=== PATIENT | female | born 1960 | race Caucasian/White ===

== ENCOUNTER → 2019-04-14 | Outpatient (CLI) | payer OTHER, SELFPAY ==
--- NOTE | 2019-04-14 14:32 | BI_ITS ---
MAMMOGRAPHY - BILATERAL SCREENING REASON FOR EXAM: Female, 58 years old. Routine annual screening examination. PERTINENT HISTORY: Non-contributory. TECHNIQUE: Digital bilateral breast gill (3D mammographic acquisition) in the CC and MLO projections. 2-D mediolateral oblique (MLO) and craniocaudad (CC) views of both breasts were obtained. CAD: Full Field Digital Mammography with Computer Added Detection was performed. COMPARISON: Comparison is made with prior study dated May 07, 2017 and September 08, 2015. FINDINGS: Breast Composition: The breasts are almost entirely fatty. There are no dominant masses or suspicious calcifications. Stable benign-appearing bilateral axillary lymph nodes. No other significant abnormalities are identified. There has been no significant change since the prior study. BI/SCREEN MAMM (CAD) W/GILL BILAT IMPRESSION: Stable bilateral screening mammogram. Yearly follow-up mammogram recommended. (A) ASSESSMENT CATEGORY: BIRADS Category 2: Benign. A letter regarding these results will be sent to the patient by the facility within 30 days. Approximately 10% of breast cancers are not detected by mammography. A normal mammogram should not delay biopsy of a clinically suspicious abnormality. [id number] Electronically Signed: Ramesh Shulka, at 15:34 EDT , Service support ,
== END | disposition home or self-care (01) ==
LOC: OPBI 14:30
PROVIDERS: Family Provider Internal Medicine; PCP Internal Medicine; Referring Provider Internal Medicine; Visit Provider Internal Medicine
DX: Z12.31 Encounter for screening mammogram for malignant neoplasm of breast (principal)
CPT/HCPCS: 77063; 77067

== ENCOUNTER 2019-09-06 13:40 | Emergency (ER) | payer OTHER, SELFPAY ==
[2019-09-06 13:42] VITALS: BP 158/96; PULSE 82; RESP 14; TEMP 36.6; O2SAT 98; BMI 39.1
[2019-09-06 13:52] VITALS: PULSE 82; RESP 14; O2SAT 98
--- NOTE | 2019-09-06 13:56 | EKG12_ITS ---
Test Reason : PALPS Blood Pressure : / mmHG Vent. Rate : 079 BPM Atrial Rate : 079 BPM P-R Int : 164 ms QRS Dur : 098 ms QT Int : 420 ms P-R-T Axes : 015 021 032 degrees QTc Int : 481 ms Normal sinus rhythm Abnormal ECG Confirmed by ROHAN CHÁVEZ, GEORGINA ([id number]), electronic news gathering editor ROSENDO EDMONDSON ([id number]) on 09/07/2019 1:55:54 PM Referred By: REBEKA/SESAR Confirmed By:GEORGINA MADRIGAL MD
--- NOTE | 2019-09-06 13:59 | ED.VISSUMM ---
- ER Visit Summary Date of Service: 09/06/19 Chief Complaint: Palpitations History of Present Illness: The patient is a 59 F who has not been feeling well intermittently for the past week. She states that at times she feels palpitations but then at other times her heart rate was low. Last night she documented in the 40s with a finger pulse ox. She feels very fatigued. She does have some pain in the left arm. She denies any recent illnesses. She has no pain in her chest. She denies shortness of breath. She takes atenolol and lisinopril. She states that her dose of atenolol is 25 mg. She has been on the same dose for many years without any recent changes. Physical Examination: Vital signs reviewed. HEENT exam unremarkable. Heart is regular rate and rhythm without murmurs. Lungs are clear to auscultation. Abdomen is soft and nontender. Extremities reveal no edema. Peripheral pulses are equal. Skin exam normal. Neurologic exam normal. Test Results: Normal sinus rhythm with a rate of 89. No ST changes. Labs normal. TSH normal Emergency Department Course and Treatment: The patient's telemetry consisted of a sinus rhythm that maintained in the 70s and 80s. There is no bradycardia or tachycardia. I am unclear as to why her heart rate registered in the 40s last night. 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 I recommended following up with her PCP for a Holter monitor. Treatment Plan: [] Disposition: Discharge Impression: Palpitations This note was generated with [employer] dictation software. It may contain incorrect words, spelling, and punctuation that were not noted in review of the chart prior to signing ED Disposition - Plan for ED Patient: Referrals: Erin Craven DO [Primary Care Provider] -
[2019-09-06 14:11] LABS: Absolute Lymphocyte Count 2.05 X10^3/uL (0.83-4.51); Absolute Neutrophil Count 4.9 X10^3/uL (2.0-7.7); Basophil# 0.08 X10^3/uL; Eosinophil# 0.31 X10^3/uL; Eosinophils% 3.9 % (0-5); Hematocrit 43.7 % (37-47); Hemoglobin 14.3 g/dL (12.0-15.0); Lymphocyte # 2.05 X10^3/ul (4.0); Lymphocyte % 25.9 % (19-41); Mean Corp Hgb Conc 32.7 g/dL (32-36); Mean Corpuscular Volume 91.8 fL (81-99); Monocyte# 0.55 X10^3/uL; Monocyte% 6.9 % (0-10); NRBC Flagged by Analyzer 0 % (0-5); Neutrophil % 61.8 % (47-70); Platelet Count 170 K/mm3 (150-450); RBC Distribution Width CV 13.2 % (11.6-14.6); RBC Distribution Width SD 44.6 fl (35.1-43.9); Red Blood Count 4.76 M/mm3 (4.2-5.4); White Blood Count 7.9 K/mm3 (4.4-11.0)
[2019-09-06 14:33] LABS: Anion Gap 9 (5-15); BUN 15 mg/dL (7-18); BUN/Creat Ratio 20.7 RATIO (10-20); Calcium,Total 9.2 mg/dL (8.5-10.1); Chloride 105 mmol/L (98-107); Creatinine, Serum 0.73 mg/dL (0.55-1.02); EST Glomerular Filtration Rate 87 mL/min (>60); Est Glom Filt Rate - Afr Amer 105 mL/min (>60); Estimated Creatinine Clearance 73.74 ml/min; Glucose 98 mg/dL (74-106); Potassium 3.8 mmol/L (3.5-5.1); Sodium Level 139 mmol/L (136-145); Thyroid Stim Hormone (TSH) 1.32 uIU/mL (0.358-3.74)
--- NOTE | 2019-09-06 14:52 | ED.DEP ---
ED Disposition - Plan for ED Patient: Disposition: Home or Assisted Living Instructions: Palpitations Referrals: Erin Craven DO [Primary Care Provider] -
[2019-09-06 15:01] VITALS: BP 108/67; PULSE 77; RESP 18; O2SAT 96
--- NOTE | 2019-09-06 15:02 | ED.RN ---
REVIEWED D/C INSTRUCTIONS, FOLLOW UP CARE, AND S/S THAT WOULD WARRANT A RETURN TO THE ED WITH PT. PT VERBALIZED AN UNDERSTANDING AND DENIES FURTHER QUESTIONS FOR THIS RN. PT SKIN P/W/D, RESP EVEN AND UNLABORED, PT A&O X 3, NO DISTRESS NOTED. PT AMBULATED OUT OF ED, GAIT STEADY.
== END 2019-09-06 15:05 | disposition home or self-care (01) ==
PROVIDERS: Emergency Provider Emergency Medicine; Family Provider Internal Medicine; PCP Internal Medicine
DX: R00.2 Palpitations (principal); I10 Essential (primary) hypertension; Z79.899 Other long term (current) drug therapy
CPT/HCPCS: 80048; 84443; 84484; 85025; 93005; 99284; A4216

== ENCOUNTER → 2019-09-14 10:02 | Outpatient (CLI) | payer OTHER, SELFPAY ==
[2019-09-06 13:42] VITALS: BMI 39.1
--- NOTE | 2019-09-14 10:09 | RAD_ITS ---
STUDY: X-RAY CHEST REASON FOR EXAM: Female, 59 years old. Cough. TECHNIQUE: PA and lateral views of the chest. COMPARISON: Comparison is made with prior examination dated April 17, 2017. FINDINGS: The lungs are clear and expanded. Scattered calcified granulomas. There is no demonstrated pleural abnormality. Normal size heart. Normal mediastinum and marleni. Normal visualized pulmonary arteries. There is atherosclerotic tortuosity of the aortic arch and descending thoracic aorta. There are degenerative changes of the visualized thoracic spine. Normal visualized ribs, clavicles, and shoulders. There is no demonstrated abnormality of the visualized soft tissue structures of the upper abdomen. RAD/Chest PA and Lateral IMPRESSION: No acute abnormality is seen. Electronically Signed: Ramesh Shukla, at 10:56 EST , Service support ,
== END ==
PROVIDERS: Family Provider Internal Medicine; PCP Internal Medicine; Referring Provider Nurse Practitioner; Visit Provider Nurse Practitioner
DX: J40 Bronchitis, not specified as acute or chronic (principal)
CPT/HCPCS: 71046

== ENCOUNTER → 2020-08-15 11:23 | Outpatient (CLI) | payer OTHER, SELFPAY ==
--- NOTE | 2020-08-15 11:30 | RAD_ITS ---
STUDY: X-RAY CHEST REASON FOR EXAM: Female, 60 years old. Cough x 3 days TECHNIQUE: PA and lateral views of the chest. COMPARISON: Comparison is made with prior study dated 09/14/2019. FINDINGS: The lungs are clear and expanded. There is no demonstrated pleural abnormality. Normal size heart. Normal mediastinum and marleni. Normal visualized pulmonary arteries. Normal visualized aortic arch and descending thoracic aorta. There are degenerative changes of the visualized thoracic spine. Normal visualized ribs, clavicles, and shoulders. There is no demonstrated abnormality of the visualized soft tissue structures of the upper abdomen. RAD/Chest PA and Lateral IMPRESSION: No acute abnormality is seen. Electronically Signed: Ramesh Shukla, at 12:06 EDT , Service support ,
== END ==
PROVIDERS: PCP Internal Medicine; Referring Provider Internal Medicine; Visit Provider Internal Medicine
DX: R06.02 Shortness of breath (principal)
CPT/HCPCS: 71046

== ENCOUNTER → 2021-01-23 09:56 | Outpatient (CLI) | payer OTHER, SELFPAY ==
[2021-01-23 10:12] LABS: Absolute Lymphocyte Count 2.03 X10^3/uL (0.83-4.51); Absolute Neutrophil Count 3.7 X10^3/uL (2.0-7.7); Basophil# 0.05 X10^3/uL; Basophil% 0.8 % (0-1); Eosinophil# 0.27 X10^3/uL; Eosinophils% 4.1 % (0-5); Hematocrit 42.1 % (37-47); Hemoglobin 13.9 g/dL (12.0-15.0); Lymphocyte # 2.03 X10^3/ul (4.0); Lymphocyte % 30.6 % (19-41); Mean Corpuscular Hgb 29.8 pg (27.0-32.0); Mean Corpuscular Volume 90.3 fL (81-99); Mean Platelet Vol. 12.9 fl (6.2-12.0); Monocyte# 0.51 X10^3/uL; Monocyte% 7.7 % (0-10); NRBC Flagged by Analyzer 0 % (0-5); Neutrophil # 3.73 X10^3/uL (2.7-7.7); Neutrophil % 56.2 % (47-70); Platelet Count 162 K/mm3 (150-450); RBC Distribution Width CV 13.8 % (11.6-14.6); RBC Distribution Width SD 45.1 fl (35.1-43.9); Red Blood Count 4.66 M/mm3 (4.2-5.4); White Blood Count 6.6 K/mm3 (4.4-11.0)
[2021-01-23 10:23] LABS: D-Dimer Quantitative (DVT/PE) 0.44 FEU/ug/m (0.27-0.49)
[2021-01-23 10:37] LABS: ALB/GLOB Ratio 1.2 RATIO (0.9-2.4); AST(SGOT) 55 U/L (15-37); Alanine Aminotransfer ALT/SGPT 122 U/L (13-56); Albumin, Serum 3.8 g/dL (3.2-5.0); Alkaline Phosphatase 113 U/L (45-117); Anion Gap 5 (5-15); BUN 18 mg/dL (7-18); Calcium,Total 8.9 mg/dL (8.5-10.1); Chloride 107 mmol/L (98-107); Creatinine, Serum 0.64 mg/dL (0.55-1.02); EST Glomerular Filtration Rate 100 mL/min (>60); Est Glom Filt Rate - Afr Amer 120 mL/min (>60); Globulin 3.3 g/dL (2.2-4.2); Glucose 113 mg/dL (74-106); Protein, Total 7.1 g/dL (6.4-8.2); Sodium Level 139 mmol/L (136-145); Thyroid Stim Hormone (TSH) 2.34 uIU/mL (0.358-3.74)
== END ==
PROVIDERS: PCP Internal Medicine; Referring Provider Nurse Practitioner; Visit Provider Nurse Practitioner
DX: R00.2 Palpitations (principal)
CPT/HCPCS: 80053; 83880; 84443; 84484; 85025; 85379

== ENCOUNTER 2021-01-28 02:04 | Emergency (ER) | payer OTHER, SELFPAY ==
[2021-01-28 02:05] VITALS: BP 153/101; PULSE 105; RESP 19; TEMP 37.3; O2SAT 97; BMI 39.4
--- NOTE | 2021-01-28 02:30 | EKG12_ITS ---
Test Reason : SOB Blood Pressure : / mmHG Vent. Rate : 101 BPM Atrial Rate : 101 BPM P-R Int : 186 ms QRS Dur : 102 ms QT Int : 382 ms P-R-T Axes : 046 046 050 degrees QTc Int : 495 ms Sinus tachycardia Otherwise normal ECG Confirmed by ROHAN CHÁVEZ, GEORGINA ([id number]), story editor ULISES OTERO ([id number]) on 01/31/2021 7:49:56 AM Referred By: KEE Confirmed By:GEORGINA MADRIGAL MD
[2021-01-28 02:44] LABS: Absolute Lymphocyte Count 2.34 X10^3/uL (0.83-4.51); Basophil# 0.06 X10^3/uL; Basophil% 0.8 % (0-1); Eosinophil# 0.24 X10^3/uL; Eosinophils% 3.2 % (0-5); Hematocrit 38.9 % (37-47); Hemoglobin 12.9 g/dL (12.0-15.0); Lymphocyte # 2.34 X10^3/ul (4.0); Lymphocyte % 31.6 % (19-41); Mean Corp Hgb Conc 33.2 g/dL (32-36); Mean Corpuscular Hgb 30.3 pg (27.0-32.0); Mean Corpuscular Volume 91.3 fL (81-99); Mean Platelet Vol. 12.4 fl (6.2-12.0); Monocyte# 0.72 X10^3/uL; Monocyte% 9.7 % (0-10); NRBC Flagged by Analyzer 0 % (0-5); Neutrophil # 4.02 X10^3/uL (2.7-7.7); Neutrophil % 54.4 % (47-70); Platelet Count 167 K/mm3 (150-450); RBC Distribution Width CV 13.7 % (11.6-14.6); RBC Distribution Width SD 46.4 fl (35.1-43.9); Red Blood Count 4.26 M/mm3 (4.2-5.4); White Blood Count 7.4 K/mm3 (4.4-11.0)
--- NOTE | 2021-01-28 02:50 | RAD_ITS ---
STUDY: X-RAY CHEST REASON FOR EXAM: Female, 60 years old. sob x 1 week TECHNIQUE: Single frontal view of the chest. COMPARISON: 01/23/2021 FINDINGS: EKG leads artifacts. Low lung volumes. No pneumothorax or pleural effusion. No focal consolidation. Normal size heart. Normal mediastinum and marleni. Normal visualized pulmonary arteries. Normal visualized aortic arch and descending thoracic aorta. There are diffuse degenerative changes of the visualized thoracic spine. Normal visualized ribs, clavicles, and shoulders. There is no demonstrated abnormality of the visualized soft tissue structures of the upper abdomen. RAD/Chest 1 View (Portable) IMPRESSION: Degenerative changes, as described above. No demonstrated acute cardiopulmonary process. Electronically Signed: Curtis Darling MD at 3:36 EDT Tel , Service support ,
[2021-01-28 02:54] LABS: D-Dimer Quantitative (DVT/PE) 0.39 FEU/ug/m (0.27-0.49)
[2021-01-28 03:01] LABS: Anion Gap 6 (5-15); BUN 20 mg/dL (7-18); BUN/Creat Ratio 25.1 RATIO (10-20); Chloride 106 mmol/L (98-107); EST Glomerular Filtration Rate 78 mL/min (>60); Est Glom Filt Rate - Afr Amer 94 mL/min (>60); Estimated Creatinine Clearance 66.45 ml/min; Glucose 133 mg/dL (74-106); Potassium 3.5 mmol/L (3.5-5.1); Sodium Level 139 mmol/L (136-145)
--- NOTE | 2021-01-28 04:06 | CT_ITS ---
STUDY: CT ABDOMEN AND PELVIS WITH CONTRAST REASON FOR EXAM: Female, 60 years old. abd mass -- IV PO Contrast RADIATION DOSAGE (If Supplied By Facility): CTDIvol = ( 21.46 ) mGy, DLP = ( 2626.73 ) mGycm TECHNIQUE: Transaxial images were obtained from the dome of the diaphragm to the symphysis pubis with oral contrast. 100ML ISOVUE 370 and amp; GASTROGRAFFIN was administered. Sagittal and coronal images were reconstructed. Individualized dose optimization techniques were used for this CT. COMPARISON: 08/18/2015 FINDINGS: Please see dedicated CT scan of the chest for chest findings. There is a 1 cm low-attenuation structure within the left hepatic lobe similar to prior study likely representing a cyst. There is decreased attenuation of the liver consistent with steatosis. Hepatomegaly 21 cm. There is non-visualization of the gallbladder, which may be secondary to either contraction or a prior cholecystectomy. Normal spleen. Normal pancreas. Normal bilateral adrenal glands. There are subcentimeter low-attenuation structures within the kidneys bilaterally. Too small to characterize by CT criteria however statistically likely represents a cyst. No hydronephrosis identified. Normal visualized stomach. Normal small intestine. There are multiple colonic diverticula consistent with diverticulosis. The appendix is visualized and appears normal. There is diffuse atherosclerotic calcification of the abdominal aorta, without a demonstrated aneurysm. Normal inferior vena cava. Nonspecific subcentimeter short axis mesenteric and retroperitoneal lymph nodes. Normal urinary bladder. There is absence of the uterus consistent with a prior hysterectomy. There is a 1.5 cm right adnexal low-attenuation structure. Normal abdominal wall. Degenerative changes of the hips and symphysis pubis as well as sacroiliac joints. CT/Abdomen/Pelvis WITH Contrast IMPRESSION: No CT evidence for acute diverticulitis or appendicitis. Hepatic steatosis and hepatomegaly. Subcentimeter short axis lymph nodes within the mesentery nonspecific. May be reactive/mesenteric adenitis in the appropriate clinical setting. Status post hysterectomy. There is a right adnexal low-attenuation structure 1.5 cm likely ovarian. Correlate with pelvic ultrasound on a nonemergent outpatient basis. Other findings as above. Electronically Signed: Curtis Darling MD at 6:59 EDT Tel , Service support ,
--- NOTE | 2021-01-28 04:08 | CT_ITS ---
STUDY: CTA CHEST REASON FOR EXAM: Female, 60 years old. sob RADIATION DOSAGE (If Supplied By Facility): CTDIvol = ( 21.46 ) mGy, DLP = ( 2626.73 ) mGycm TECHNIQUE: The examination was performed with the intravenous administration of 100ML ISOVUE 370. Post-processing of the angiographic images was performed, with multiplanar reformation and 3D reconstruction. Individualized dose optimization techniques were used for this CT. COMPARISON: None. FINDINGS: Bolus timing limits evaluation for pulmonary embolism. There is no pulmonary embolism within the main pulmonary artery or right and left main pulmonary arteries. There is no segmental pulmonary artery embolism identified. Normal thoracic aorta and visualized great vessels. There is no demonstrated aortic dissection. Normal heart and pericardium. Coronary artery calcifications. Normal mediastinum. Normal hilar regions. There is a 4 mm left upper lobe pulmonary nodule. There is a 5 mm left upper lobe pulmonary nodule. There is atelectasis/scarring within the lungs. No pneumothorax or pleural effusion is seen. There is a 3 mm right lower lobe pulmonary nodule. There is a 4 mm right lower lobe pulmonary nodule. There is a 5 mm right upper lobe pulmonary nodule. There is a 3 mm right middle lobe pulmonary nodule. Normal chest wall structures. There are degenerative changes of thoracic spine. Scoliotic curvature to the spine. Please see dedicated CT abdomen and pelvis for abdominal findings. CT/CTA Chest W/WO Contrast IMPRESSION: Bolus timing limits evaluation for pulmonary embolism. There is no pulmonary embolism within the main pulmonary artery or right and left main pulmonary arteries. There is no segmental pulmonary artery embolism identified. Coronary artery calcifications. No aortic aneurysm or dissection. Multiple pulmonary nodules are present. No prior imaging is available for comparison. Recommend correlation with prior studies for stability versus follow-up CT scan of the chest in 6 months to ensure stability and to exclude neoplasm There is atelectasis/scarring within the lungs. There is no focal consolidation identified. Other findings as discussed above. Electronically Signed: Curtis Darling MD at 6:53 EDT Tel , Service support ,
--- NOTE | 2021-01-28 04:11 | ED.DCSUM_ITS ---
History of Present Illness Chief Complaint: Shortness of Breath Informant: Patient Onset: Days Current Severity: Moderate Maximum Severity: Moderate Narrative: Patient presents secondary to shortness of breath and racing heart. Patient states for the last week she has been very short of breath and been having intermittent palpitations. Tonight she was woken from sleep feeling short of breath. Her heart rate was in the 140s at home. Patient states she did see her PCP this past week. Blood work and chest x-ray were reportedly negative. Patient tested negative for Covid last week. Patient states that she is bess pposed to have a CT scan this coming week secondary to an abdominal mass and have a Holter monitor placed as well. - Past Medical History (1) Hypertension Status: Chronic (2) GERD (gastroesophageal reflux disease) Status: Chronic (3) Anxiety and depression Status: Chronic Past Medical History - Allergies and Home Meds Allergies/Adverse Reactions: Allergies No Known Allergies Allergy (Verified 01/28/21 02:11) Primary Care Physician: Erin Craven DO [Primary Care Provider] - Surgical History: cholecystectomy Smoking Status: Former smoker Review of Systems General: Denies: Chills, Fever Eyes: Denies: Visual changes - bilaterally ENT: Denies: Bilateral ear pain Cardiovascular: Reports: Palpitations, Heart racing Respiratory: Reports: Dyspnea. Denies: Cough Gastrointestinal: Denies: Abdominal pain, Nausea, Vomiting, Diarrhea Genitourinary: Denies: Dysuria Musculoskeletal: Denies: Swelling, Extremity Pain Skin: Denies: Rash Neurological: Denies: Headache Hematologic: Denies: Easy bruising, Easy bleeding Allergy: Denies: Uticaria Physical Exam Vital Signs/Narrative: Vital Signs Temp Pulse Resp BP Pulse Ox 01/28/21 02:05 99.2 F H 105 H 19 H 153/101 H 97 Inital Vital Signs reviewed: Yes General: Well nourished, Well developed Head: Normocephalic ENT: Moist mucous membranes Neck: Supple Cardiovascular: Regular rate, Regular rhythm Respiratory: No distress, CTA bilaterally Abdomen: Soft, Nontender, Normal bowel sounds Extremities: Nontender Skin: Normal color Neurological: Alert, Oriented x3 Psychological: - - Anxious Diagnostic/Tx/Re-eval Chest X-Ray - ED: 1 View, Read by ED Physician, Normal, Heart, Lungs, Mediastinum Impressions Chest X-Ray 01/28/21 02:50 IMPRESSION: Degenerative changes, as described above. No demonstrated acute cardiopulmonary process. Electronically Signed: Curtis Darling MD at 3:36 EDT Tel , Service support , Abdomen/Pelvis CT 01/28/21 04:06 IMPRESSION: No CT evidence for acute diverticulitis or appendicitis. Hepatic steatosis and hepatomegaly. Subcentimeter short axis lymph nodes within the mesentery nonspecific. May be reactive/mesenteric adenitis in the appropriate clinical setting. Status post hysterectomy. There is a right adnexal low-attenuation structure 1.5 cm likely ovarian. Correlate with pelvic ultrasound on a nonemergent outpatient basis. Other findings as above. Electronically Signed: Curtis Darling MD at 6:59 EDT Tel , Service support , Chest CTA 01/28/21 04:08 IMPRESSION: Bolus timing limits evaluation for pulmonary embolism. There is no pulmonary embolism within the main pulmonary artery or right and left main pulmonary arteries. There is no segmental pulmonary artery embolism identified. Coronary artery calcifications. No aortic aneurysm or dissection. Multiple pulmonary nodules are present. No prior imaging is available for comparison. Recommend correlation with prior studies for stability versus follow-up CT scan of the chest in 6 months to ensure stability and to exclude neoplasm There is atelectasis/scarring within the lungs. There is no focal consolidation identified. Other findings as discussed above. Electronically Signed: Curtis Darling MD at 6:53 EDT Tel , Service support , 01/28/21 02:50 Chest 1 View (Portable) [RAD] Stat 01/28/21 04:06 Abdomen/Pelvis WITH Contrast [CT] Stat 01/28/21 04:08 CTA Chest W/WO Contrast [CT] Stat Laboratory Results 01/28/21 01/28/21 01/28/21 02:38 02:38 02:38 WBC 7.4 RBC 4.26 Hgb 12.9 Hct 38.9 MCV 91.3 MCH 30.3 MCHC 33.2 RDW Std Deviation 46.4 H RDW Coeff of Ara 13.7 Plt Count 167 MPV 12.4 H Immature Gran % (Auto) 0.300 Neut % (Auto) 54.4 Lymph % (Auto) 31.6 [place] % (Auto) 9.7 Eos % (Auto) 3.2 Baso % (Auto) 0.8 Absolute Neuts (auto) 4.0 Absolute Lymphs (auto) 2.34 Nucleated RBC % 0 D-Dimer Quant (PE/DVT) 0.39 Sodium 139 Potassium 3.5 Chloride 106 Carbon Dioxide 27.0 Anion Gap 6 BUN 20 H Creatinine 0.80 Estim Creat Clear Calc 66.45 Est GFR (MDRD) Af Amer 94 Est GFR (MDRD) Non-Af 78 BUN/Creatinine Ratio 25.1 H Glucose 133 H Calcium 9.0 Troponin I < 0.015 - EKG Initial EKG Interpretation: Sinus Tachycardia - Sinus tach at 101. No acute ischemia. - Medical Decision Making Blood work including D-dimer unremarkable. On repeat evaluation patient resting comfortably but voices frustration and not being able to determine what is causing her symptoms. Patient is scheduled for a CT abdomen pelvis in the next couple days. We discussed going ahead and getting that here as well as getting her chest. This was done and the scans are largely unremarkable as well. I did speak with patient's PCP, Dr. Craven. She will call into the office Friday to try to have someone do an ER follow-up visit. Patient is advised to call in with an update on symptoms. She was encouraged to try to come to the ER when her heart rate is significantly elevated so we can further determine the cause of this. She may require an event monitor if it is not happening frequently. ED Disposition - Plan for ED Patient: Disposition: Home or Assisted Living Diagnosis: Palpitations, Dyspnea Instructions: ED Dyspnea, ED Palpitations Referrals: Erin Craven, [Primary Care Provider] - As soon as possible
[2021-01-28 04:13] VITALS: BP 125/91; PULSE 92; RESP 21; O2SAT 96
[2021-01-28 07:29] VITALS: BP 119/86; PULSE 76; RESP 16; O2SAT 95
== END 2021-01-28 07:30 | disposition home or self-care (01) ==
PROVIDERS: Emergency Provider Emergency Medicine; PCP Internal Medicine
DX: R00.2 Palpitations (principal); R06.00 Dyspnea, unspecified; I10 Essential (primary) hypertension; Z87.891 Personal history of nicotine dependence; Z90.49 Acquired absence of other specified parts of digestive tract
CPT/HCPCS: 71045; 71275; 74177; 80048; 84484; 85025; 85379; 93005; 99284; Q9967; A4216

== ENCOUNTER → 2021-02-02 11:58 | Outpatient (CLI) | payer OTHER, SELFPAY ==
[2021-01-28 02:05] VITALS: BMI 39.4
== END ==
PROVIDERS: PCP Internal Medicine; Referring Provider Nurse Practitioner; Visit Provider Nurse Practitioner
DX: R06.02 Shortness of breath (principal)
CPT/HCPCS: 93225; 93226

== ENCOUNTER 2021-02-07 18:01 | Emergency (ER) | payer OTHER, SELFPAY ==
[2021-02-07 18:02] VITALS: BP 127/99; PULSE 100; RESP 15; TEMP 36.9; O2SAT 99; BMI 42.3
[2021-02-07 18:10] VITALS: RESP 20
--- NOTE | 2021-02-07 18:15 | CT_ITS ---
STUDY: CT BRAIN WITHOUT CONTRAST REASON FOR EXAM: Female, 60 years old. Headache RADIATION DOSAGE (If Supplied By Facility): DLP = ( 779.24 ) mGycm TECHNIQUE: Transaxial CT imaging of the brain was performed without administration of intravenous contrast material. Individualized dose optimization techniques were used for this CT. COMPARISON: None. FINDINGS: There is no acute bleed or infarct. There are normal white matter tracts. The ventricles are normal in configuration. There is no hydrocephalus. The visualized paranasal sinuses are clear. The mastoid air cells are well aerated. There is no skull fracture. CT/Brain/Head without Contrast IMPRESSION: No acute intracranial abnormality. Electronically Signed: Dudley Zaidi MD at 19:05 EDT Tel , Service support ,
--- NOTE | 2021-02-07 18:16 | EKG12_ITS ---
Test Reason : DYSRYTHMIA Blood Pressure : / mmHG Vent. Rate : 088 BPM Atrial Rate : 088 BPM P-R Int : 158 ms QRS Dur : 096 ms QT Int : 402 ms P-R-T Axes : 029 017 036 degrees QTc Int : 486 ms Normal sinus rhythm Normal ECG Confirmed by SO CHÁVEZ, MORENA ([id number]), newspaper copy editor ANDREW PERAZA ([id number]) on 02/09/2021 11:51:38 AM Referred By: SATURNINO Confirmed By:MORENA RIZZO MD
--- NOTE | 2021-02-07 18:17 | ED.DCSUM_ITS ---
History of Present Illness Chief Complaint: Headache Informant: Patient Narrative: 60-year-old female with past medical history of hypertension presents with concern for headache. Patient states 2 weeks ago she began having shortness of breath as well as a headache. States that she was seen in this emergency department proximally 1 week ago where she had a negative CT of her chest as well as abdomen. Patient has had negative coronavirus test. Patient had the [employer] vaccine approximately 1 month ago. Denies any sick contacts. Patient states her headache is persisted. States it is intermittent. Not maximal at onset. Worse with coughing. Patient sent in by her primary care physician for CT of her brain. States that she gets blurry vision when she moves her head too quickly. Denies any difficulty ambulating. Denies any numbness or tingling of her extremities. Denies any neck pain. Denies any head injury. Past Medical History - Allergies and Home Meds Allergies/Adverse Reactions: Allergies No Known Allergies Allergy (Verified 02/07/21 18:02) Primary Care Physician: Erin Craven DO [Primary Care Provider] - Prior records reviewed: Yes Past Medical History: - - HTN Surgical History: cholecystectomy Lives: Spouse/ Significant Other Smoking Status: Former smoker Alcohol: None Drugs: None Review of Systems General: Denies: Chills, Fever, Sweats Eyes: Denies: Visual changes - bilaterally, Diplopia ENT: Denies: Rhinorrhea, Sore throat Cardiovascular: Denies: Chest pain, Palpitations Respiratory: Reports: Dyspnea. Denies: Cough, Dyspnea on exertion Gastrointestinal: Denies: Abdominal pain, Nausea, Vomiting, Diarrhea, Melena, Hematochezia Genitourinary: Denies: Dysuria, Hematuria, Frequency Musculoskeletal: Denies: Back pain, Extremity Pain Skin: Denies: Rash, Wounds Neurological: Reports: Headache. Denies: Weakness, Numbness Physical Exam Vital Signs/Narrative: Vital Signs Temp Pulse Resp BP Pulse Ox 02/07/21 18:10 20 H 02/07/21 18:02 98.5 F 100 15 127/99 H 99 Inital Vital Signs reviewed: Yes General: Well nourished, Well developed, No Acute Distress Head: Normocephalic, Atraumatic Eyes: Perrl, EOMI ENT: Moist mucous membranes, No rhinorrhea Neck: Supple, Nontender Cardiovascular: Regular rate, Regular rhythm, No murmurs Respiratory: No distress, CTA bilaterally, Chest nontender Abdomen: Soft, Nontender, Nondistended, Normal bowel sounds Back: Nontender, Normal Inspection Extremities: Nontender, No edema Skin: Normal color, No rash Neurological: Alert, Oriented x3, Cranial nerves II-XII grossly intact, Normal Strength, Normal Sensation Psychological: Normal affect, Normal Mood Diagnostic/Tx/Re-eval Chest X-Ray - ED: 1 View, Read by ED Physician, Read by Radiologist, Normal Clinical Impression(s) from Imaging Studies Brain CT 02/07/21 18:15 IMPRESSION: No acute intracranial abnormality. Electronically Signed: Dudley Zaidi MD at 19:05 EDT Tel , Service support , Chest X-Ray 02/07/21 18:27 IMPRESSION: No acute thoracic pathology. Electronically Signed: Dudley Zaidi MD at 19:07 EDT Tel , Service support , Head/Neck CTA 02/07/21 19:16 IMPRESSION: 1. Normal bilateral carotid and vertebral arteries. 2. Absent P1 segment of the right posterior cerebral artery. The distal segments are supplied via patent posterior communicating artery. 3. Otherwise normal [place] [employer] [place]. Electronically Signed: Daniel Manjarrez DO at 19:50 EDT Tel [phone], Service support , Laboratory Data 02/07/21 02/07/21 02/07/21 18:42 18:42 18:42 WBC 7.3 RBC 4.77 Hgb 14.3 Hct 43.6 MCV 91.4 MCH 30.0 MCHC 32.8 RDW Std Deviation 45.1 H RDW Coeff of Ara 13.3 Plt Count 192 MPV 11.9 Immature Gran % (Auto) 0.300 Neut % (Auto) 59.0 Lymph % (Auto) 29.0 [place] % (Auto) 7.6 Eos % (Auto) 3.4 Baso % (Auto) 0.7 Absolute Neuts (auto) 4.3 Absolute Lymphs (auto) 2.11 Nucleated RBC % 0 Sodium 138 Potassium 3.6 Chloride 106 Carbon Dioxide 26.0 Anion Gap 6 BUN 17 Creatinine 0.69 Estim Creat Clear Calc 73.94 Est GFR (MDRD) Af Amer 111 Est GFR (MDRD) Non-Af 92 BUN/Creatinine Ratio 24.6 H Glucose 132 H Calcium 8.8 Total Bilirubin 0.20 AST 96 H ALT 185 H Alkaline Phosphatase 117 Troponin I < 0.015 B-Natriuretic Peptide 6.6 Total Protein 7.7 Albumin 3.8 Globulin 3.9 Albumin/Globulin Ratio 1.0 - Medical Decision Making Appears well and nontoxic. Vital signs within normal limits. No focal deficit. CT without contrast as well as CTA of the head and neck are negative for acute pathology. Lab work again within normal limits. Chest x-ray interpreted by myself shows no evidence of infiltrate or cardiomegaly. Radiology concurs. Patient was offered treatment for headache which she does not wish to have at this time and is just relieved that her imaging is negative. Will follow up with her primary care provider. Stable at time of discharge. Impression: 1. Headache 2. Dyspnea ED Disposition - Plan for ED Patient: Disposition: Home or Assisted Living Instructions: ED Headache Unspecified Referrals: Erin Craven DO [Primary Care Provider] - 2 Days
--- NOTE | 2021-02-07 18:27 | RAD_ITS ---
STUDY: X-RAY CHEST REASON FOR EXAM: Female, 60 years old. Chest pain TECHNIQUE: Frontal view of the chest COMPARISON: X-ray chest 01/28/2021 FINDINGS: The lungs are clear. There are no pleural effusions. There is no pneumothorax. The heart is normal in size. The visualized osseous structures are within normal limits. RAD/Chest 1 View (Portable) IMPRESSION: No acute thoracic pathology. Electronically Signed: Dudley Zaidi MD at 19:07 EDT Tel , Service support ,
[2021-02-07 18:49] LABS: Absolute Lymphocyte Count 2.11 X10^3/uL (0.83-4.51); Absolute Neutrophil Count 4.3 X10^3/uL (2.0-7.7); Basophil# 0.05 X10^3/uL; Basophil% 0.7 % (0-1); Eosinophil# 0.25 X10^3/uL; Eosinophils% 3.4 % (0-5); Hematocrit 43.6 % (37-47); Hemoglobin 14.3 g/dL (12.0-15.0); Lymphocyte # 2.11 X10^3/ul (0.83-4.51); Mean Corp Hgb Conc 32.8 g/dL (32-36); Mean Corpuscular Volume 91.4 fL (81-99); Mean Platelet Vol. 11.9 fl (6.2-12.0); Monocyte# 0.55 X10^3/uL; Monocyte% 7.6 % (0-10); NRBC Flagged by Analyzer 0 % (0-5); Neutrophil # 4.29 X10^3/uL (2.7-7.7); Platelet Count 192 K/mm3 (150-450); RBC Distribution Width CV 13.3 % (11.6-14.6); RBC Distribution Width SD 45.1 fl (35.1-43.9); Red Blood Count 4.77 M/mm3 (4.2-5.4); White Blood Count 7.3 K/mm3 (4.4-11.0)
[2021-02-07 19:06] LABS: AST(SGOT) 96 U/L (15-37); Alanine Aminotransfer ALT/SGPT 185 U/L (13-56); Albumin, Serum 3.8 g/dL (3.2-5.0); Alkaline Phosphatase 117 U/L (45-117); Anion Gap 6 (5-15); BNP,B-Type NATRIURETIC PEPTIDE 6.6 pg/mL (0-100); BUN 17 mg/dL (7-18); BUN/Creat Ratio 24.6 RATIO (10-20); Calcium,Total 8.8 mg/dL (8.5-10.1); Chloride 106 mmol/L (98-107); Creatinine, Serum 0.69 mg/dL (0.55-1.02); EST Glomerular Filtration Rate 92 mL/min (>60); Est Glom Filt Rate - Afr Amer 111 mL/min (>60); Estimated Creatinine Clearance 73.94 ml/min; Globulin 3.9 g/dL (2.2-4.2); Glucose 132 mg/dL (74-106); Potassium 3.6 mmol/L (3.5-5.1); Protein, Total 7.7 g/dL (6.4-8.2); Sodium Level 138 mmol/L (136-145)
--- NOTE | 2021-02-07 19:16 | CT_ITS ---
STUDY: CTA HEAD AND NECK WITH CONTRAST REASON FOR EXAM: Female, 60 years old. Headache. RADIATION DOSAGE (If Supplied By Facility): CTDIvol = ( 26.705 ) mGy, DLP = ( 757.63 ) mGycm TECHNIQUE: CT angiography was performed with a multi-detector CT scanner. Data acquisition was obtained from the skull base through the vertex following intravenous administration of IV 100mL Isovue-370. MIP images were reconstructed from the axial data set. Post-processing of the angiographic images was performed, with multiplanar reformation and 3D reconstruction. Individualized dose optimization techniques were used for this CT. COMPARISON: CT of the head, 02/07/2021. FINDINGS: Normal bilateral petrous carotid arteries. Normal right cavernous carotid artery with a normal supraclinoid bifurcation. Normal left cavernous carotid artery with a normal supraclinoid bifurcation. Normal right A1 segments of the anterior cerebral artery. Normal left A1 segments of the anterior cerebral artery. Normal intact anterior communicating artery (ACOM). Normal bilateral A2 segments of the anterior cerebral arteries. Normal right M1 and M2 segments of the middle cerebral arteries, with a normal M1 bifurcation. Normal left M1 and M2 segments of the middle cerebral arteries, with a normal M1 bifurcation. Normal right posterior communicating artery (PCOM). There is non-visualization of the left posterior communicating artery (PCOM). Normal bilateral vertebral arteries. There is tortuosity with elongation of the basilar artery. The visualized bilateral superior cerebellar (SCA) arteries are normal. Normal P1, P2 and visualized P3 segments of the left posterior cerebral artery. There is an absent P1 segment of the right posterior cerebral artery. The P2 and visualized P3 segments are supplied via the patent posterior communicating artery. There is no demonstrated aneurysm of the [place]. There is no demonstrated abnormality of the visualized brain. AORTIC ARCH: Normal visualized aortic arch. Normal origins of the brachiocephalic, left common carotid, and left subclavian arteries. RIGHT CAROTID ARTERIES: Normal right common carotid artery (CCA). Normal right common carotid bulb. Normal origin of the right internal carotid (ICA) artery without a hemodynamically significant stenosis. Tortuosity of the visualized cervical portion of the right internal carotid artery. Normal origin of the right external carotid artery (ECA). LEFT CAROTID ARTERIES: Tortuosity of the left common carotid artery (CCA). Normal left common carotid bulb. Normal origin of the left internal carotid (ICA) artery without a hemodynamically significant stenosis. Tortuosity of the visualized cervical portion of the left internal carotid artery. Normal origin of the left external carotid artery (ECA). VERTEBRAL ARTERIES: Normal bilateral vertebral arteries. CT/CTA Head AND Neck W/ Contrast IMPRESSION: 1. Normal bilateral carotid and vertebral arteries. 2. Absent P1 segment of the right posterior cerebral artery. The distal segments are supplied via patent posterior communicating artery. 3. Otherwise normal [place]. Electronically Signed: Daniel Manjarrez DO at 19:50 EDT Tel [phone], Service support ,
[2021-02-07 20:41] VITALS: RESP 15
== END 2021-02-07 20:41 | disposition home or self-care (01) ==
PROVIDERS: Emergency Provider Emergency Medicine; PCP Internal Medicine
DX: R51.9 Headache, unspecified (principal); R06.00 Dyspnea, unspecified; I10 Essential (primary) hypertension; Z90.49 Acquired absence of other specified parts of digestive tract; Z87.891 Personal history of nicotine dependence
CPT/HCPCS: 70450; 70496; 70498; 71045; 80053; 83880; 84484; 85025; 93005; 99283; J7030; Q9967; A4216

== ENCOUNTER → 2021-02-12 08:37 | Outpatient (CLI) | payer OTHER, SELFPAY ==
[2021-01-28 02:05] VITALS: BMI 39.4
[2021-02-07 18:02] VITALS: BMI 42.3
--- NOTE | 2021-02-12 08:38 | US_ITS ---
STUDY: ULTRASOUND OF THE FEMALE PELVIS - COMPLETE REASON FOR EXAM: Female, 60 years old. Rt adnexal mass LMP: The patient is status post hysterectomy. TECHNIQUE: Transabdominal TECHNICAL QUALITY: Adequate. COMPARISON: Comparison is made with prior CT scan the abdomen and pelvis dated 01/28/2021. FINDINGS: The patient is status post hysterectomy. The right ovary is visualized. The right ovary measures 2.4 cm x 1.6 x 1.1 cm. There is no right ovarian cyst or ovarian mass. There is no visualized right adnexal mass or complex lesion. There is normal arterial and normal venous vascularity. The patient is status post left oophorectomy. There is no fluid in the cul-de-sac. The pre void volume of the bladder was 271 ml. US/Pelvic (Non ) IMPRESSION: Status post hysterectomy and left oophorectomy. Electronically Signed: Ramesh Shukla MD at 14:03 EDT , Service support ,
--- NOTE | 2021-02-12 08:38 | US_ITS ---
STUDY: ABDOMINAL ULTRASOUND - left UPPER QUADRANT REASON FOR VISIT: Female, 60 years old abd mass/luq TECHNIQUE: Ultrasound evaluation of the right upper quadrant was performed with real-time and static valero-scale imaging. TECHNICAL QUALITY: Adequate. COMPARISON: None. FINDINGS: Left Kidney: Normal size of the left kidney. The left kidney measures 11.6 cm x 6.2 cm x 5.5 cm. Normal renal cortex. The left cortex measures 1.3 cm. There is no demonstrated renal mass or cyst. There is no left hydronephrosis. Spleen: The spleen measures 11.3 cm x 5.1 cm x 4.6 cm it is unremarkable. The palpable abnormality corresponds to adipose tissue. US/Abdomen Limited IMPRESSION: Normal left upper quadrant ultrasound examination. Electronically Signed: Ramesh Shukla MD at 12:09 EDT , Service support ,
--- NOTE | 2021-02-12 09:07 | ECHOCS_ITS ---
Reason For Study: SOB Procedure This was a 2D Doppler, Color Flow transthoracic echocardiogram. The study was technically difficult. Due to body habitus. Contrast injection was performed. Exam performed in department. Left Ventricle Normal LV size. The estimated ejection fraction is 60 %. No evidence for diastolic dysfunction. No regional wall motion abnormalities noted. Right Ventricle Normal RV size. Normal systolic function. Atria Normal left atrium. Normal right atrium. No doppler evidence for ASD. Mitral Valve There is no mitral valve stenosis. No mitral valve insufficiency. Tricuspid Valve There is no tricuspid stenosis. Unable to estimate RV systolic pressure due to inadequate jet, pulmonary artery pressure probably normal. Aortic Valve Trisinus/trileaflet aortic valve. There is no aortic stenosis. No aortic valve insufficiency. Pulmonic Valve There is no pulmonic valvular stenosis. No pulmonic valve insufficiency. Great Vessels Normal aortic root. Pericardium/Pleural No pericardial effusion. Medication 22 gauge I.V. with prn adaptor inserted into right arm. Diluted definity 2.0ml given slow IV push to enhance endocardial definition. MMode/2D Measurements & Calculations LVIDd: 4.1 cm IVSd: 1.0 cm Ao root diam: 3.4 cm LVIDs: 2.9 cm LVPWd: 1.00 cm RVDd: 2.8 cm FS: 29.7 % LAV(MOD-bp): 31.4 ml LVAd ap4: 30.4 cm2 SV(MOD-sp4): 51.1 ml LAV(MOD-bp) Indexed: 14.9 ml/m2 EDV(MOD-sp4): 86.8 ml LAV(MOD-sp2): 38.8 ml EDV(sp4-el): 89.0 ml LAV(MOD-sp4): 26.0 ml LVAs ap4: 18.0 cm2 ESV(MOD-sp4): 35.7 ml ESV(sp4-el): 36.2 ml EF(MOD-sp4): 58.9 % EF(sp4-el): 59.3 % SV(sp4-el): 52.7 ml LA A4 area: 13.1 cm2 LA dimension(2D): 3.8 cm RA A4 area: 10.3 cm2 Time Measurements MV dec time: 0.23 sec Doppler Measurements & Calculations MV E max anam: 71.8 cm/sec Lat Peak E' Anam: 6.6 cm/sec Med Peak E' Anam: 7.9 cm/sec MV A max anam: 89.6 cm/sec E/E' lat: 10.8 E/E' med: 9.1 MV E/A: 0.80 Ao V2 max: 149.7 cm/sec LV V1 max: 116.9 cm/sec PA V2 max: 83.6 cm/sec Ao max P.0 mmHg LV V1 max P.5 mmHg ECHO/Echo Complete W/ Contrast Interpretation Summary The estimated ejection fraction is 60 %. No evidence for diastolic dysfunction. The study was technically difficult. Contrast injection was performed. Ordering Physician: Herber^Erin^^^ Referring Physician: Erin Craven Performed By: Mariella Chou, CHELSEA, RVT
== END ==
PROVIDERS: PCP Internal Medicine; Referring Provider Internal Medicine; Visit Provider Internal Medicine
DX: R19.02 Left upper quadrant abdominal swelling, mass and lump (principal); R93.89 Abnormal findings on diagnostic imaging of other specified body structures; R06.02 Shortness of breath
CPT/HCPCS: 76705; 76856; 93306; Q9957; A4216; C8929

== ENCOUNTER → 2021-02-26 09:23 | Outpatient (CLI) | payer OTHER, SELFPAY ==
[2021-02-07 18:02] VITALS: BMI 42.3
--- NOTE | 2021-02-26 09:43 | US_ITS ---
STUDY: ABDOMINAL ULTRASOUND - RIGHT UPPER QUADRANT REASON FOR VISIT: Female, 60 years old ELEVATED LFTS TECHNIQUE: Ultrasound evaluation of the right upper quadrant was performed with real-time and static valero-scale imaging. TECHNICAL QUALITY: Adequate. COMPARISON: Comparison is made with prior ultrasound dated 02/12/2021. FINDINGS: Liver: The liver is enlarged and measures 18.9 cm. There is increased echogenicity consistent with fatty infiltration. The bile ducts are within normal limits. There is hepatic color flow. The direction of portal flow is hepatopetal. There is a 1.3 cm x 1.2 cm x 0.9 cm cyst in the left lobe of the liver. Gallbladder: The patient is status post cholecystectomy. Common Bile Duct (C.B.D.): The common bile duct measures 6 mm. Pancreas: Normal size of the head, body and tail of the pancreas. There is normal echogenicity of the pancreas. There is no demonstrated pancreatic mass or cyst. Right Kidney: Normal size of the right kidney. The right kidney measures 11.1 cm x 5.7 cm x 5.5 cm. Normal renal cortex. The right cortex measures 1.2 cm. There is a 9 mm x 8 mm x 7 mm renal cyst. There is no right hydronephrosis. US/Liver IMPRESSION: Mild hepatomegaly and fatty infiltration of the liver. The patient is status post cholecystectomy. Electronically Signed: Ramesh Shukla MD at 11:15 EDT , Service support ,
[2021-02-26 10:47] LABS: AST(SGOT) 66 U/L (15-37); Alanine Aminotransfer ALT/SGPT 146 U/L (13-56); Albumin, Serum 3.6 g/dL (3.2-5.0); Alkaline Phosphatase 105 U/L (45-117); Bilirubin, Direct 0.18 mg/dL (0.00-0.30); Ferritin 230 ng/mL (8-252); GGTP 24 U/L (5-55); Globulin 3.3 g/dL (2.2-4.2); Protein, Total 6.9 g/dL (6.4-8.2)
[2021-02-27 08:08] LABS: Ceruloplasmin 25.9 mg/dL (19.0-39.0); HEPATITIS B SURFACE AG Negative (Negative); Hepatitis A IgM Antibody Negative (Negative); Hepatitis B Core AB IgM Negative (Negative); Transferrin 290 mg/dL (192-364)
[2021-02-27 10:49] LABS: CMV Acute Antibody IgM < 30.0 AU/mL (0.0-29.9); Hep C Antibodies <0.1 s/co ratio (0.0-0.9); Thyroid Peroxidase AB < 9 IU/mL (0-34)
[2021-02-27 15:12] LABS: ANTINUCLEAR ANTIBODIES DIRECT Negative (Negative)
== END ==
PROVIDERS: PCP Internal Medicine; Referring Provider Internal Medicine; Visit Provider Internal Medicine
DX: R79.89 Other specified abnormal findings of blood chemistry (principal)
CPT/HCPCS: 36415; 76705; 80074; 80076; 82390; 82728; 82977; 84466; 86038; 86376; 86645

== ENCOUNTER → 2021-02-28 12:32 | Outpatient (CLI) | payer OTHER, SELFPAY ==
[2021-02-07 18:02] VITALS: BMI 42.3
== END ==
LOC: LAB 12:33 → LABSPEC 12:34
PROVIDERS: PCP Internal Medicine; Visit Provider Internal Medicine
DX: R79.89 Other specified abnormal findings of blood chemistry (principal)
CPT/HCPCS: 81050

== ENCOUNTER → 2021-03-30 12:00 | Outpatient (CLI) | payer OTHER, SELFPAY ==
--- NOTE | 2021-03-30 12:04 | BI_ITS ---
MAMMOGRAPHY - BILATERAL SCREENING REASON FOR EXAM: Female, 60 years old. Routine annual screening examination. PERTINENT HISTORY: Non-contributory. TECHNIQUE: Digital bilateral breast gill (3D mammographic acquisition) in the CC and MLO projections. 2-D mediolateral oblique (MLO) and craniocaudad (CC) views of both breasts were obtained. CAD: Full Field Digital Mammography with Computer Added Detection was performed. COMPARISON: Comparison is made with prior study dated 04/14/2019 and 11/07/2016. FINDINGS: Breast Composition: The breasts are almost entirely fatty. There are no dominant masses or suspicious calcifications. Stable benign appearing bilateral axillary nodes. No other significant abnormalities are identified. There has been no significant change since the prior study. BI/SCRN MAMM (CAD)W/GILL BILAT IMPRESSION: Stable bilateral screening mammogram. Yearly follow-up mammogram recommended. (A) ASSESSMENT CATEGORY: BIRADS Category 2: Benign. A letter regarding these results will be sent to the patient by the facility within 30 days. Approximately 10% of breast cancers are not detected by mammography. A normal mammogram should not delay biopsy of a clinically suspicious abnormality. [id number] Electronically Signed: Ramesh Shukla MD at 13:20 EDT , Service support ,
== END ==
PROVIDERS: PCP Internal Medicine; Referring Provider Internal Medicine; Visit Provider Internal Medicine
DX: Z12.31 Encounter for screening mammogram for malignant neoplasm of breast (principal)
CPT/HCPCS: 77063; 77067

== ENCOUNTER → 2021-04-04 10:46 | Outpatient (CLI) | payer OTHER, SELFPAY ==
[2021-04-04 10:12] VITALS: BMI 43.2
[2021-04-04 11:53] LABS: BNP,B-Type NATRIURETIC PEPTIDE 13.6 pg/mL (0-100)
== END ==
PROVIDERS: PCP Internal Medicine; Referring Provider Internal Medicine Cardiovascular Disease; Visit Provider Internal Medicine Cardiovascular Disease
DX: R06.00 Dyspnea, unspecified (principal)
CPT/HCPCS: 36415; 83880

== ENCOUNTER 2021-08-01 11:00 | Outpatient (RCR) | payer OTHER, SELFPAY ==
[2021-04-04 10:12] VITALS: BMI 43.2
--- NOTE | 2021-06-13 15:59 | HP.PTEVAL ---
Patient's Visit Information KAYLEIGH MAYORGA is a 61 year old F referred to Physical Therapy by Dr. Erin Craven DO with a diagnosis of LUMBAR RADICULOPATHY. Date of Evaluation: 06/13/21 Physical Therapist: Robin Guzman, PT, Cert MDT, OCS - Visit Plan Frequency: 2x /Week Duration: 4 Weeks Plan: PT INTERVETIONS DLS ABD/BACK ,POSTURAL EX'S,MODALTIES AND LE STRENGTHENING ,PATIENT EDUCATION - Subjective This 61 y/o female presents to physical therapy with lumbar radiculopathy . Patient has had pain lumbar and right leg with paresthesia thigh to hip and back pain ~ one year. Patient pain located lumbar right lateral leg. Seen DR prescribed PT and recommended anti-inflammatory and pain meds. Wanted MRI but needs PT first. Aggravating factors sitting, lifting ,bending , walking ,standing . Alleviating factors MEDS and rest. Symptoms worse at night better ,thus affects sleeping. Coughing/sneezing -No abnormal night pain. Bowel/bladder -. Patient seen chiropractor didn't help. SOCIAL: - Pain Bilateral Back Pain Intensity (Out of 10): 4 Pain Intensity Range: 10 Right Lower Extremity Pain Intensity (Out of 10): 4 Pain Intensity Range: 10 - Objective POSTURE: mild forward posture. GAIT: reciprocal pattern right antalgic gait. NEURO: c/o paresthesia right thigh ,diminished light touch. SYMMTRIES: align. PALPATION: unremarkable. FLEXABLITY: hamstrings WFL. LUMBAR ROM: flexion mod loss, extension mod loss, side glides mod loss pain right side - Special Tests L/S Slump test left side: Negative L/S Slump test right side: Positive L/S Left Straight Leg Raise: Negative L/S Right Straight Leg Raise: Negative Lumbar Standing: Flexion - Mechanical Response: No effect Lumbar Standing: Flexion - Symptoms During Testing: No effect Lumbar Standing: Flexion - Symptoms After Testing: No effect Lumbar Standing: Extension - Mechanical Response: No effect Lumbar Standing: Extension - Symptoms During Testing: Increases Lumbar Standing: Extension - Symptoms After Testing: No effect Lumbar Standing: Right Side Glides - Mechanical Response: No effect Lumbar Standing: Right Side [place] - Symptoms During Testing: Increases Lumbar Standing: Right Side [place] - Symptoms After Testing: Worse Lumbar Standing: Left Side [place] - Mechanical Response: No effect Lumbar Standing: Left Side [place] - Symptoms During Testing: No effect Lumbar Standing: Left Side [place] - Symptoms After Testing: No effect - Balance/Special Test Scores Oswestry Low Back Score: 24 - Goals Goal 1:: I with HEP Goal Time Frame: 4-6 Weeks Goal 2:: Improve posture for ADL'S Goal Time Frame: 4-6 Weeks Goal 3:: Decrease lumbar radiculopathy and paresthesia by 50%v or > to improve function Goal Time Frame: 4-6 Weeks Goal 4:: Patient to improve lumbar ROM for function of recovery Goal Time Frame: 4-6 Weeks Goal 5:: Patient to improve back owestry score by 5 points or > top improve function Goal Time Frame: 4-6 Weeks - Rehabilitation Potential Physical Therapy Diagnosis: This patient has lumbar pain with possible lateral stenosis vs disc with pain during repeated motion ,position sitting ,walking bending with numbness right thigh thus benefit skilled PT Rehabilitation Potential: Excellent - Anticipated Interventions Patient/Client Instruction: Educate patient on: Condition, Plan of Care For the Purpose of:: To decrease pain, To increase ROM, To improve muscle performance and motor function, To improve ability to perform ADL's, To improve performance and independence with ADL's, To improve ability of physical actions for home/community/work/leisure, To improve health of tissue, To increase flexibility/ROM, To improve endurance, To improve balance, To assume or resume ADL's, To reduce risk of recurrence Therapeutic Exercise to Include: Strength training, Postural training, Flexibilty training, Dynamic Lumbar Stabilization Comment: BLE For the Purpose of:: To decrease pain, To increase ROM, To improve muscle performance and motor function, To improve ability to perform ADL's, To increase tolerance to activity/condition/position, To improve performance and independence with ADL's, To improve ability of physical actions for home/community/work/leisure, To improve gait and locomotor functions, To improve health of tissue, To decrease soft tissue restriction, To increase flexibility/ROM, To reduce risk of recurrence, To improve health and function TENS: Yes IF ES: Yes Cryotherapy (ice pack, ice massage): Yes Thermo therapy (hot pack): Yes Ultrasound (thermal/non thermal): Yes For the Purpose of:: To decrease pain, To increase ROM, To improve nutrient delivery to tissue, To increase oxygenation perfusion, To improve health of tissue, To decrease soft tissue restriction Thank you for the opportunity to evaluate your patient. For Medicare and Medicare HMO plans, please review the plan of care and approve it. It will need to be FAXED BACK to us at [phone] for Medicare purposes. For Medicare only, by signing this I certify the plan of care. Please let me know if there are questions or concerns regarding this plan of care. Physician Signature: Date:
--- NOTE | 2021-11-14 09:13 | HP.PTDCNRP_ITS ---
KAYLEIGH MAYORGA was seen in my office for initial evaluation on 06/13/21. The following Plan of Care was established for this patient: Initial Frequency: 2x /Week Initial Duration: 4 Weeks Patient/Client Instruction: Educate patient on: Condition, Plan of Care For the Purpose of:: To decrease pain, To increase ROM, To improve muscle performance and motor function, To improve ability to perform ADL's, To improve performance and independence with ADL's, To improve ability of physical actions for home/community/work/leisure, To improve health of tissue, To increase flexibility/ROM, To improve endurance, To improve balance, To assume or resume ADL's, To reduce risk of recurrence Therapeutic Exercise to Include: Strength training, Postural training, Flexibilty training, Dynamic Lumbar Stabilization For the Purpose of:: To decrease pain, To increase ROM, To improve muscle performance and motor function, To improve ability to perform ADL's, To increase tolerance to activity/condition/position, To improve performance and indep endence with ADL's, To improve ability of physical actions for home/community/work/leisure, To improve gait and locomotor functions, To improve health of tissue, To decrease soft tissue restriction, To increase flexibility/ROM, To reduce risk of recurrence, To improve health and function TENS: Yes IF ES: Yes Cryotherapy (ice pack, ice massage): Yes Thermo therapy (hot pack): Yes Ultrasound (thermal/non thermal): Yes For the Purpose of:: To decrease pain, To increase ROM, To improve nutrient delivery to tissue, To increase oxygenation perfusion, To improve health of tissue, To decrease soft tissue restriction This patient was last seen in our office . Pertinent comments regarding their Physical therapy will appear below: At this point I will be discontinuing this patient from physical therapy. I would be happy to see this patient again in the future if found appropriate by the physician. Thank you! Robin Guzman, PT, Cert MDT, OCS Balance/Gait/Functional tests - Balance/Special Test Scores Oswestry Low Back Score: 11
== END 2021-08-01 19:00 | disposition home or self-care (01) ==
LOC: PT 11:00
PROVIDERS: PCP Internal Medicine; Referring Provider Internal Medicine; Visit Provider Internal Medicine
DX: M54.16 Radiculopathy, lumbar region (principal); R29.898 Other symptoms and signs involving the musculoskeletal system
CPT/HCPCS: 97014; 97035; 97162; 97530; G0283

== ENCOUNTER → 2021-08-28 06:33 | Outpatient (CLI) | payer OTHER, SELFPAY ==
--- NOTE | 2021-08-28 06:41 | MRI_ITS ---
HISTORY: Radiculopathy, low back pain, right leg numbness. TECHNIQUE: Multiplanar and multisequence MR images of the lumbar spine. IV Contrast dosage and agent: None. # of images incl. paperwork: 120. COMPARISON: None. FINDINGS: VERTEBRAE: Vertebral body heights maintained. Degenerative bone marrow endplate changes at L5-S1. ALIGNMENT: No significant anterior or posterior subluxation. CONUS: Normal morphology and position at L1. SOFT TISSUES: Moderate posterior subcutaneous edema. INTERVERTEBRAL DISCS: T12-L1: Minimal disc bulge. No significant central canal stenosis or foraminal narrowing. L1-2, L2-3: No significant posterior disc protrusion, central canal stenosis, or foraminal narrowing. L3-4: Minimal posterior disc protrusion with facet arthropathy. No significant central canal stenosis or foraminal narrowing. L4-5: No significant posterior disc protrusion, central canal stenosis, or foraminal narrowing. L5-S1: Minimal disc bulge with facet arthropathy. No significant central canal stenosis. Very mild bilateral foraminal narrowing. OTHER: Small bilateral renal cystic lesions. MRI/Spine Lumbar (Routine) IMPRESSION: Mild degenerative disc disease in the lumbar spine without significant spinal canal stenosis. at 0841 Reported and signed by: Tiana Jim MD Electronically Signed: Tiana Jim MD at 8:39 EDT Tel , Service support ,
--- NOTE | 2021-08-28 07:26 | CT_ITS ---
HISTORY: LUNG NODULE. TECHNIQUE: Helically acquired images of the chest following IV contrast as per pulmonary angiogram protocol with 2D and 3D reconstructions. A radiation dose optimization technique was used for this scan. IV Contrast dosage and agent: 100 mL Isovue-370. # of images incl. paperwork: 1321. COMPARISON: 01/28/2021. FINDINGS: CENTRAL AIRWAYS: Patent. LUNGS: 2-3 mm scattered bilateral pulmonary nodules again seen. PLEURA: No pneumothorax or pleural effusion. PULMONARY ARTERIES: No filling defect. HEART/PERICARDIUM: Heart within normal limits in size. No significant pericardial effusion. AORTA/[place]SE[place]: No aortic aneurysm or dissection flap. MEDIASTINUM/BRAYDON: No enlarged lymph nodes. OSSEOUS STRUCTURES: Degenerative change. UPPER ABDOMEN: Hepatic steatosis. Borderline splenomegaly. CT/CTA Chest W/WO Contrast IMPRESSION: No significant interval change in small bilateral pulmonary nodules. No evidence for pulmonary embolism. Individualized dose optimization techniques were used for this CT. at 1235 Reported and signed by: Tiana Jim MD Electronically Signed: Tiana Jim MD at 12:34 EDT Tel , Service support ,
[2021-08-28 09:26] LABS: CREATININE FINGERSTICK 0.6 mg/dL (0.55-1.02); EGFR FINGERSTICK > 60.0000 mL/min (>60)
== END ==
PROVIDERS: PCP Internal Medicine; Referring Provider Internal Medicine; Visit Provider Internal Medicine
DX: M54.16 Radiculopathy, lumbar region (principal); R91.1 Solitary pulmonary nodule
CPT/HCPCS: 71275; 72148; Q9967

== ENCOUNTER → 2022-06-07 | Outpatient (CLI) | payer OTHER, SELFPAY ==
[2022-06-07 14:37] LABS: D-Dimer Quantitative (DVT/PE) 0.41 FEU/ug/m (0.27-0.49)
[2022-06-07 14:39] LABS: CPK Total, Creatine Kinase 78 U/L (26-192); Troponin-I HS 19 pg/mL (3.0-54.0)
[2022-06-09 15:48] LABS: Myoglobin, Serum 22 ng/mL (25-58)
== END | disposition home or self-care (01) ==
LOC: LABSPEC 14:10
PROVIDERS: PCP Internal Medicine; Referring Provider Nurse Practitioner Family; Visit Provider Nurse Practitioner Family
DX: R07.89 Other chest pain (principal)
CPT/HCPCS: 82550; 83874; 84484; 85379

== ENCOUNTER → 2022-06-17 | Outpatient (CLI) | payer OTHER, SELFPAY ==
--- NOTE | 2022-06-17 12:12 | BI_ITS ---
MAMMOGRAPHY - BILATERAL SCREENING REASON FOR EXAM: Female, 62 years old. Routine annual screening examination. PERTINENT HISTORY: Non-contributory. TECHNIQUE: Digital bilateral breast gill (3D mammographic acquisition) in the CC and MLO projections. 2-D mediolateral oblique (MLO) and craniocaudad (CC) views of both breasts were obtained. CAD: Full Field Digital Mammography with Computer Added Detection was performed. COMPARISON: Comparison is made with prior study dated 03/30/2021 and 04/14/2019. FINDINGS: Breast Composition: The breasts are almost entirely fatty. There are no dominant masses or suspicious calcifications. Stable benign appearing bilateral axillary lymph nodes. No other significant abnormalities are identified. There has been no significant change since the prior study. BI/SCRN MAMM (CAD)W/GILL BILAT IMPRESSION: Stable bilateral screening mammogram. Yearly follow-up mammogram recommended. (A) ASSESSMENT CATEGORY: BIRADS Category 2: Benign. A letter regarding these results will be sent to the patient by the facility within 30 days. Approximately 10% of breast cancers are not detected by mammography. A normal mammogram should not delay biopsy of a clinically suspicious abnormality. [id number] Electronically Signed: Ramesh Shukla MD at 13:10 EDT ,
== END | disposition home or self-care (01) ==
LOC: OPBI 12:10
PROVIDERS: PCP Internal Medicine; Visit Provider Internal Medicine
DX: Z12.31 Encounter for screening mammogram for malignant neoplasm of breast (principal)
CPT/HCPCS: 77063; 77067

== ENCOUNTER → 2022-07-05 | Outpatient (CLI) | payer OTHER, SELFPAY ==
--- NOTE | 2022-07-05 08:50 | US_ITS ---
STUDY: ABDOMINAL ULTRASOUND - RIGHT UPPER QUADRANT REASON FOR VISIT: Female, 62 years old FATTY LIVER TECHNIQUE: Ultrasound evaluation of the right upper quadrant was performed with real-time and static valero-scale imaging. TECHNICAL QUALITY: Limited. Examination limited due to a combination of factors including obesity and bowel gas. COMPARISON: Comparison made with prior study of 02/26/2021. FINDINGS: Liver: The liver measures 16 cm. There is increased echogenicity consistent with fatty infiltration. The bile ducts are within normal limits. There is hepatic color flow. The direction of portal flow is hepatopetal. Stable 1.4 cm x 0.9 cm x 2.9 cm cyst in the left lobe of the liver. Gallbladder: The patient is status post cholecystectomy. Common Bile Duct (C.B.D.): The common bile duct measures 5.7 mm. Pancreas: There is nonvisualization of the pancreas due to overlying bowel gas. Right Kidney: Normal size of the right kidney. The right kidney measures 11.5 cm x 6 cm x 5.3 cm. Normal renal cortex. The right cortex measures 1.9 cm. There is no demonstrated renal mass or cyst. There is no right hydronephrosis. US/Liver IMPRESSION: Fatty infiltration of the liver. Stable cyst in the left lobe of the liver. The patient is status post cholecystectomy. Electronically Signed: Ramesh Shukla MD at 9:53 EDT ,
--- NOTE | 2022-07-05 09:00 | US_ITS ---
STUDY: ABDOMINAL ULTRASOUND - ELASTOGRAPHY REASON FOR VISIT: Female, 62 years old. Fatty infiltration of the liver. TECHNIQUE: Liver stiffness measurements were obtained on a [employer] RS 85 ultrasound machine using a CA 1-7 probe following the SRU guidelines. 3 measurements were obtained using a 2-D-SWE method. The IQR/M was 20 % suggesting a quality data set. TECHNICAL QUALITY: Adequate. COMPARISON: Comparison is made with prior study done earlier today. FINDINGS: Liver: Fatty infiltration of the liver. Median liver stiffness measured 11.2 kPa. US/Elastography Parenchyma/Organ IMPRESSION: Liver stiffness measures 11.2 kPa compatible with F2-F3 (Mild to moderate liver fibrosis) Metavir score. Electronically Signed: Ramesh Shukla MD at 15:37 EDT ,
== END | disposition home or self-care (01) ==
PROVIDERS: PCP Internal Medicine; Referring Provider Internal Medicine; Visit Provider Internal Medicine
DX: K76.0 Fatty (change of) liver, not elsewhere classified (principal)
CPT/HCPCS: 76705; 76981

== ENCOUNTER 2022-07-18 13:38 | Outpatient (CLI) | payer OTHER, SELFPAY ==
[2022-07-18 14:04] LABS: Absolute Neutrophil Count 4.6 X10^3/uL (2.0-7.7); Basophil# 0.05 X10^3/uL; Basophil% 0.6 % (0-1); Eosinophil# 0.35 X10^3/uL; Eosinophils% 4.5 % (0-5); Hemoglobin 14.2 g/dL (12.0-15.0); Mean Corp Hgb Conc 33.8 g/dL (32-36); Mean Corpuscular Volume 88.8 fL (81-99); Mean Platelet Vol. 11.7 fl (6.2-12.0); Monocyte# 0.57 X10^3/uL; Monocyte% 7.3 % (0-10); NRBC Flagged by Analyzer 0 % (0-5); Neutrophil # 4.64 X10^3/uL (2.7-7.7); Neutrophil % 59.8 % (47-70); Platelet Count 191 K/mm3 (150-450); RBC Distribution Width CV 13.3 % (11.6-14.6); RBC Distribution Width SD 43.5 fl (35.1-43.9); Red Blood Count 4.73 M/mm3 (4.2-5.4); White Blood Count 7.8 K/mm3 (4.4-11.0)
[2022-07-18 14:21] LABS: ALB/GLOB Ratio 0.9 RATIO (0.9-2.4); AST(SGOT) 88 U/L (15-37); Alanine Aminotransfer ALT/SGPT 159 U/L (13-56); Albumin, Serum 3.6 g/dL (3.2-5.0); Alkaline Phosphatase 103 U/L (45-117); Anion Gap 7 (5-15); BUN 10 mg/dL (7-18); BUN/Creat Ratio 14.2 RATIO (10-20); Calcium,Total 9.4 mg/dL (8.5-10.1); Chloride 105 mmol/L (98-107); EST Glomerular Filtration Rate 89 mL/min (>60); Est Glom Filt Rate - Afr Amer 108 mL/min (>60); Globulin 3.8 g/dL (2.2-4.2); Glucose 99 mg/dL (74-106); Potassium 3.9 mmol/L (3.5-5.1); Protein, Total 7.4 g/dL (6.4-8.2); Sodium Level 139 mmol/L (136-145)
--- NOTE | 2022-07-18 14:24 | CT_ITS ---
STUDY: CTA CHEST REASON FOR EXAM: Female, 62 years old. SOB RADIATION DOSAGE (If Supplied By Facility): CTDIvol = ( 19.43 ) mGy, DLP = ( 1652.14 ) mGycm TECHNIQUE: The examination was performed with the intravenous administration of IV 100mL Isovue-370. Post-processing of the angiographic images was performed, with multiplanar reformation and 3D reconstruction. Individualized dose optimization techniques were used for this CT. COMPARISON: None. FINDINGS: Normal enhancement of the main pulmonary artery and right and left pulmonary arteries. Normal enhancement of the bilateral peripheral pulmonary arteries. There is no demonstrated pulmonary embolism. Normal thoracic aorta and visualized great vessels. There is no demonstrated aortic dissection. Normal heart and pericardium. Normal mediastinum. Normal hilar regions. Normal visualized trachea and bronchi. The lungs are well expanded. Normal pulmonary parenchyma. Normal pleura. Normal chest wall structures. Normal osseous structures. Normal visualized upper abdomen. CT/CTA Chest W/WO Contrast IMPRESSION: No evidence of pulmonary embolism or aortic dissection. No evidence of acute cardiopulmonary process or focal consolidation. Electronically Signed: Ramiro Daniels DO at 15:29 EDT ,
--- NOTE | 2022-07-18 14:27 | CT_ITS ---
STUDY: CT ABDOMEN WITH CONTRAST REASON FOR EXAM: Female, 62 years old. ABDOMINAL WALL MASS SUSPECTED, left side RADIATION DOSAGE (If Supplied By Facility): CTDIvol = ( 19.43 ) mGy, DLP = ( 1652.14 ) mGycm TECHNIQUE: Transaxial images were obtained post I.V. administration of IV 100mL Isovue-370, and oral contrast. Sagittal and coronal images were reconstructed. Individualized dose optimization techniques were used for this CT. COMPARISON: 01/28/2021 CT abdomen and pelvis FINDINGS: The visualized lung bases are unremarkable. The visualized portions of the heart are within normal limits. Normal liver. There is non-visualization of the gallbladder, which may be secondary to either contraction or a prior cholecystectomy. Normal spleen. Normal pancreas. Normal bilateral adrenal glands. Normal right kidney. Normal left kidney. Normal visualized stomach. Normal small intestine. Normal colon. There is non-visualization of the appendix. Normal abdominal aorta. Normal inferior vena cava. Normal retroperitoneum. Normal abdominal wall. Normal osseous structures. CT/Abdomen WITH IV Contrast IMPRESSION: No evidence of acute abdominal process or focal lesion. No evidence of underlying left side abdominal mass. If continued clinical suspicion recommend dedicated ultrasound for further characterization. Electronically Signed: Ramiro Daniels DO at 15:26 EDT ,
[2022-07-19 07:34] LABS: CRP 9.75 mg/L (0.0-3.0)
[2022-07-19 07:50] LABS: Erythrocyte Sedimentation Rate 19 mm/hr (0-30)
== END 2022-07-18 23:59 | disposition home or self-care (01) ==
PROVIDERS: PCP Internal Medicine; Referring Provider Internal Medicine; Visit Provider Internal Medicine
DX: R09.02 Hypoxemia (principal)
CPT/HCPCS: 36415; 71275; 74160; 80053; 85025; 85652; 86140; Q9967

== ENCOUNTER → 2022-07-23 | Outpatient (CLI) | payer OTHER, SELFPAY ==
--- NOTE | 2022-07-23 12:42 | ECHOCS_ITS ---
Reason For Study: DYSPNEA Procedure This was a 2D Doppler, Color Flow transthoracic echocardiogram. The study was technically difficult. Due to body habitus. Contrast injection was performed. Exam performed in department. Left Ventricle Based upon the 2D echocardiographic and contrast enhanced images obtained there appears to be grossly normal left ventricular size, wall motion, and systolic function. The estimated ejection fraction is 55 %. No evidence for diastolic dysfunction. Right Ventricle Normal RV size. The right ventricle is normal in size, function, and thickness. Atria Normal left atrium. Normal right atrium. No doppler evidence for ASD. Mitral Valve There is no mitral annular calcification. Normal mitral valve. Trivial mitral valve insufficiency. Tricuspid Valve Trivial tricuspid valve insufficiency. Aortic Valve The aortic valve is not well visualized. Pulmonic Valve The pulmonic valve is not well visualized. Great Vessels The aortic root is not well visualized. Pericardium/Pleural No pericardial effusion. Medication 22 gauge I.V. with prn adaptor inserted into right arm. Diluted definity 3.0ml given slow IV push to enhance endocardial definition. MMode/2D Measurements & Calculations LAV(MOD-bp): 41.5 ml LVAd ap4: 31.7 cm2 LVAd ap2: 25.8 cm2 LAV(MOD-bp) Indexed: 19.6 ml/m2 LVLd ap4: 8.9 cm LVLd ap2: 8.2 cm LAV(MOD-sp2): 56.4 ml EDV(MOD-sp4): 93.9 ml EDV(MOD-sp2): 66.1 ml LAV(MOD-sp4): 27.4 ml EDV(sp4-el): 95.3 ml EDV(sp2-el): 68.7 ml LVAs ap4: 20.6 cm2 LVAs ap2: 16.9 cm2 LVLs ap4: 7.7 cm LVLs ap2: 7.5 cm ESV(MOD-sp4): 47.2 ml ESV(MOD-sp2): 31.1 ml ESV(sp4-el): 46.8 ml ESV(sp2-el): 32.0 ml EF(MOD-sp4): 49.8 % EF(MOD-sp2): 52.9 % EF(sp4-el): 50.9 % SV(MOD-sp4): 46.7 ml SV(MOD-sp2): 35.0 ml SV(sp4-el): 48.5 ml LA A4 area: 13.0 cm2 RA A4 area: 10.8 cm2 Time Measurements MV dec time: 0.27 sec Doppler Measurements & Calculations MV E max anam: 67.2 cm/sec Lat Peak E' Anam: 6.9 cm/sec Med Peak E' Anam: 8.8 cm/sec MV A max anam: 80.9 cm/sec E/E' lat: 9.8 E/E' med: 7.7 MV E/A: 0.83 Ao V2 max: 151.5 cm/sec LV V1 max: 115.4 cm/sec MV dec slope: 249.5 cm/sec2 Ao max P.2 mmHg LV V1 max P.4 mmHg Ao V2 mean: 103.9 cm/sec LV V1 mean P.0 mmHg Ao mean P.0 mmHg LV V1 mean: 82.7 cm/sec Ao V2 VTI: 30.8 cm LV V1 VTI: 22.0 cm PA V2 max: 82.2 cm/sec ECHO/Echo Complete W/ Contrast Interpretation Summary The study was technically difficult. Contrast injection was performed. Based upon the 2D echocardiographic and contrast enhanced images obtained there appears to be grossly normal left ventricular size, wall motion, and systolic function. The estimated ejection fraction is 55 %. Trivial mitral valve insufficiency. Trivial tricuspid valve insufficiency. No evidence for diastolic dysfunction. Ordering Physician: Jackson Doll Referring Physician: Erin Craven Performed By: Mariella Chou, CHELSEA, RVT
== END | disposition home or self-care (01) ==
LOC: CVS 12:38
PROVIDERS: PCP Internal Medicine; Referring Provider Internal Medicine Critical Care Medicine; Visit Provider Internal Medicine Critical Care Medicine
DX: R06.00 Dyspnea, unspecified (principal)
CPT/HCPCS: 93306; Q9957; A4216; C8929

== ENCOUNTER → 2022-08-05 | Outpatient (CLI) | payer OTHER, SELFPAY ==
--- NOTE | 2022-08-05 13:05 | PFT ---
INTRODUCTION: The patient is a 62-year-old female that presents for pulmonary function studies secondary to a diagnosis of dyspnea. Respiratory therapy reported good patient effort. Bronchodilators were used during testing. INTERPRETATION: Forced expiration spirometry demonstrates no evidence of a large airways obstructive ventilatory defect. There was no significant response to aerosolized bronchodilators. Spirograms are of good quality and plateau normally. Body plethysmography was performed and reveals lung volumes to be within normal limits. Diffusing capacity by single breath CO is also within normal limits. IMPRESSION: Grossly normal pulmonary function studies.
== END | disposition home or self-care (01) ==
PROVIDERS: PCP Internal Medicine; Referring Provider Internal Medicine Critical Care Medicine; Visit Provider Internal Medicine Critical Care Medicine
DX: R06.00 Dyspnea, unspecified (principal)
CPT/HCPCS: 94060; 94726; 94729

== ENCOUNTER → 2022-08-19 | Outpatient (CLI) | payer OTHER, SELFPAY ==
[2022-08-19 13:55] VITALS: PULSE 100; PULSE 101; PULSE 102; PULSE 77; PULSE 79; PULSE 96; PULSE 98; PULSE 99; O2SAT 96; O2SAT 97; O2SAT 98
--- NOTE | 2022-08-20 05:45 | WT_ITS ---
PSN 6 Minute Walk Test 6 Minute Walk Test 6 Minute Walk Test: 6 Minute Walk Test PSN:6-Minute Walk Test Start: 08/19/22 13:55 Freq: Status: Active Protocol: [id number] Document 08/19/22 13:55 [facility] (Rec: 08/19/22 13:58 [facility] [id number]) 6 Minute Walk Test Date Performed 08/19/22 Time Performed 12:30 Height 5 ft 4 in Weight: 108.862 kg Weight in Pounds 240.[address]: Jackosn Doll Assistive device used: None Pre-test Oxygen Delivery Method Room Air Pulse Ox (%) 97 Pulse Rate (60-100 beats/min) 77 Dyspnea Milena Scale (0-10) 1 1st minute Oxygen Delivery Method Room Air Pulse Ox (%) 96 Pulse Rate (60-100 beats/min) 101 H Dyspnea Milena Scale (0-10) 2 Number of Rests Taken 0 2nd minute Oxygen Delivery Method Room Air Pulse Ox (%) 96 Pulse Rate (60-100 beats/min) 98 Dyspnea Milena Scale (0-10) 2 Number of Rests Taken 0 3rd minute Oxygen Delivery Method Room Air Pulse Ox (%) 97 Pulse Rate (60-100 beats/min) 102 H Dyspnea Milena Scale (0-10) 3 Number of Rests Taken 0 Reported Symptoms Increased Work of Breathing 4th minute Oxygen Delivery Method Room Air Pulse Ox (%) 96 Pulse Rate (60-100 beats/min) 96 Dyspnea Milena Scale (0-10) 3 Number of Rests Taken 0 Reported Symptoms Increased Work of Breathing 5th minute Oxygen Delivery Method Room Air Pulse Ox (%) 96 Pulse Rate (60-100 beats/min) 100 Dyspnea Milena Scale (0-10) 3 Number of Rests Taken 0 Reported Symptoms Increased Work of Breathing 6th minute Oxygen Delivery Method Room Air Pulse Ox (%) 97 Pulse Rate (60-100 beats/min) 99 Dyspnea Milena Scale (0-10) 3 Number of Rests Taken 0 Reported Symptoms Increased Work of Breathing Post-test Oxygen Delivery Method Room Air Pulse Ox (%) 98 Pulse Rate (60-100 beats/min) 79 Dyspnea Milena Scale (0-10) 1 Full Laps Walked 21 Partial Lap, Number of Tiles Walked 35 Total Distance Walked (ft) 1274 Interpretation Interpretation: Patient was able to ambulate 1274 feet over the course of 6 minutes on room air with no assistive devices or breaks. The patient did experience some tachycardia as high as 102 bpm, but no significant change in saturations. These findings are consistent with deconditioning. Recommendations Recommendations: No supplemental oxygen is indicated at this time.
== END | disposition home or self-care (01) ==
LOC: PSN 12:29
PROVIDERS: PCP Internal Medicine; Referring Provider Internal Medicine Critical Care Medicine; Visit Provider Internal Medicine Critical Care Medicine
DX: R06.00 Dyspnea, unspecified (principal)
CPT/HCPCS: 94618

== ENCOUNTER → 2022-08-22 | Outpatient (CLI) | payer OTHER, SELFPAY | END | disposition home or self-care (01) | LOC: SL 10:10 | PROVIDERS: PCP Internal Medicine; Visit Provider Nurse Practitioner Acute Care | DX: R09.02 Hypoxemia (principal) | CPT/HCPCS: 94762 ==

== ENCOUNTER → 2022-10-02 | Outpatient (CLI) | payer OTHER, SELFPAY ==
[2022-10-02 11:57] LABS: International Normalized Ratio 1.2; Prothrombin Time (Protime)PT. 14.4 SECONDS (11.7-14.9)
[2022-10-02 12:16] LABS: Absolute Lymphocyte Count 2.11 X10^3/uL (0.83-4.51); Absolute Neutrophil Count 4.5 X10^3/uL (2.0-7.7); Basophil# 0.06 X10^3/uL; Basophil% 0.8 % (0-1); Eosinophil# 0.37 X10^3/uL; Eosinophils% 4.9 % (0-5); Erythrocyte Sedimentation Rate 18 mm/hr (0-30); Hemoglobin 14.4 g/dL (12.0-15.0); Lymphocyte # 2.11 X10^3/ul (0.83-4.51); Lymphocyte % 27.7 % (19-41); Mean Corp Hgb Conc 33.5 g/dL (32-36); Mean Corpuscular Hgb 29.8 pg (27.0-32.0); Mean Corpuscular Volume 88.8 fL (81-99); Mean Platelet Vol. 12.2 fl (6.2-12.0); Monocyte# 0.58 X10^3/uL; Monocyte% 7.6 % (0-10); NRBC Flagged by Analyzer 0 % (0-5); Neutrophil # 4.46 X10^3/uL (2.7-7.7); Neutrophil % 58.5 % (47-70); Platelet Count 203 K/mm3 (150-450); RBC Distribution Width CV 13.6 % (11.6-14.6); RBC Distribution Width SD 44.4 fl (35.1-43.9); Red Blood Count 4.84 M/mm3 (4.2-5.4); White Blood Count 7.6 K/mm3 (4.4-11.0)
[2022-10-02 12:41] LABS: AST(SGOT) 70 U/L (15-37); Alanine Aminotransfer ALT/SGPT 148 U/L (13-56); Albumin, Serum 3.6 g/dL (3.2-5.0); Alkaline Phosphatase 107 U/L (45-117); Anion Gap 8 (5-15); BUN 18 mg/dL (7-18); BUN/Creat Ratio 28.8 RATIO (10-20); CRP 7.56 mg/L (0.0-3.0); Chloride 107 mmol/L (98-107); Cholesterol 181 mg/dL (200); Creatinine, Serum 0.62 mg/dL (0.55-1.02); EST Glomerular Filtration Rate 102 mL/min (>60); Est Glom Filt Rate - Afr Amer 124 mL/min (>60); Ferritin 197 ng/mL (8-252); Globulin 3.5 g/dL (2.2-4.2); Glucose 120 mg/dL (74-106); High Density Lipoprotein 53 mg/dL; LDH 204 U/L (84-246); Potassium 3.7 mmol/L (3.5-5.1); Protein, Total 7.1 g/dL (6.4-8.2); Sodium Level 139 mmol/L (136-145); Triglycerides 166 mg/dL; Very Low Density Lipoprotein 33 mg/dL (5-40)
[2022-10-02 13:02] LABS: HIV - WCH Non-Reactive (Nonreactive)
[2022-10-02 13:15] LABS: Hemoglobin A1c 6.3 % (3.8-5.6)
[2022-10-04 13:07] LABS: Anti-Centromere B Ab <0.2 AI (0.0-0.9); Anti-Chromatin <0.2 AI (0.0-0.9); Anti-Jo <0.2 AI (0.0-0.9); Anti-Scleroderma-70 AB <0.2 AI (0.0-0.9); RNP Ab <0.2 AI (0.0-0.9); SJOGREN'S Anti-SS-A test < 0.2 AI (0.0-0.9); SJOGREN'S Anti-SS-B test < 0.2 AI (0.0-0.9); Smith Ab <0.2 AI (0.0-0.9)
[2022-10-04 16:42] LABS: Anti-Mitochondrial AB <20.0 Units (0.0-20.0); Anti-dsDNA Ab 1 IU/mL (0-9); Vitamin D 1,25-Dihydroxy 70.7 pg/mL (24.8-81.5)
[2022-10-06 14:07] LABS: Angiotensin Convert Enzyme 36 U/L (14-82); Ceruloplasmin 26.9 mg/dL (19.0-39.0); Cytoplasmic Ab (C-ANCA) <1:20 titer (Neg:<1:20); HEPATITIS B SURFACE AG Negative (Negative); Hep C Antibodies <0.1 s/co ratio (0.0-0.9); Hepatitis A IgM Antibody Negative (Negative); Hepatitis B Core AB IgM Negative (Negative)
[2022-10-08 17:00] LABS: AFP, Tumor Marker 3.7 ng/mL (0.0-9.2); Anti-Smooth Muscle ABS 8 Units (0-19); Copper, Serum or Plasma 105 ug/dL (80-158); Haptoglobin 110 mg/dL (37-355); Perinuclear Ab (P-ANCA) <1:20 titer (Neg:<1:20)
== END | disposition home or self-care (01) ==
LOC: LAB 11:17
PROVIDERS: PCP Internal Medicine; Referring Provider Nurse Practitioner Adult Health; Visit Provider Nurse Practitioner Adult Health
DX: K76.0 Fatty (change of) liver, not elsewhere classified (principal)
CPT/HCPCS: 36415; 80053; 80061; 80074; 82105; 82140; 82164; 82390; 82525; 82652; 82728; 83010; 83036; 83516; 83615; 85025; 85610; 85652; 86140; 86225; 86235; 86256; 86703

== ENCOUNTER → 2022-10-22 | Outpatient (CLI) | payer OTHER, SELFPAY ==
--- NOTE | 2022-10-23 08:07 | STRESSREP_ITS ---
Stress Test Report Date: Of study: 10-22-2022 Procedure: Exercise tolerance test/imaging study Indications: Shortness of breath/dyspnea; fatigue; cardiac ectopy/PACs/PVCs; coronary artery calcification; hypertension; COVID-19 Consent: Per the patient Procedure: The patient exercised on a Jackson protocol for 3 minutes and 36 completing Stage I and 30 seconds of Stage II achieving a peak heart rate of 157 bpm (100% predicted maximal heart rate) with resting blood pressure of 130/82 mmHg and a peak blood pressure 190/100 mmHg and a peak MET capacity of 5 normal sinus rhythm METs. The baseline ECG demonstrated. The peak exercise ECG demonstrated no obvious ECG changes. There was an occasional PVC pretest, a rare PAC during exercise, and occasional PVCs/transient ventricular bigeminy during recovery. The functional capacity was considered decreased. There was no complaint of chest discomfort during exercise or recovery. The examination was discontinued secondary to dyspnea. Impression: 1. Technically adequate (percent predicted maximal heart rate greater than 85%) exercise tolerance test 2. Peak exercise ECG with no obvious ECG changes 3. There was an occasional PVC pretest, a rare PAC during exercise, and an occasional PVC/transient ventricular bigeminy during recovery 4. Nuclear images pending Myocardial perfusion imaging study: Technique: The patient was injected with 14.5 mCi of technetium 99m Cardiolite and subsequently rest SPECT Cardiolite nuclear imaging was obtained in the horizontal long, vertical long, and short axis views. The patient exercised on a Jackson protocol for 3 minutes and 36 completing Stage I and 30 seconds of Stage II achieving a peak heart rate of 157 bpm (100% predicted maximal heart rate) wi th resting blood pressure of 130/82 mmHg and a peak blood pressure 190/100 mmHg and a peak MET capacity of 5 normal sinus rhythm METs. The patient was injected with 44.1 mCi of technetium 99m Cardiolite and subsequently stress SPECT Cardiolite nuclear imaging was obtained in the horizontal long, vertical long, and short axis views. A gated Cardiolite study at peak stress was obtained. Interpretation: Rest and stress SPECT Cardiolite nuclear imaging status post realignment, normalization, and attenuation correction, demonstrates the appearance of diminished myocardial perfusion/tracer uptake in portions of the distal anterior/anteroseptal/anteroapical segments which appear to be more prominent following stress as opposed to rest. There is end systolic thickening and brightening. The gated Cardiolite study demonstrates myocardial thickening and inward wall motion. The reported LVEF is 52%. Impression: 1. Rest and stress SPECT Cardiolite nuclear imaging demonstrate myocardial pe rfusion changes potentially compatible with an element of soft tissue attenuation/artifact however, post-rest myocardial perfusion changes potentially compatible with an area of stress-induced myocardial ischemia in portions of the distal anterior, anteroseptal, and anteroapical segments cannot necessarily be excluded. 2. The gated Cardiolite study reports an LVEF of 52%. This note was generated with [email or web address] software. It may contain incorrect words, spelling, and punctuation that were not noted in checking the note before signing.
== END | disposition home or self-care (01) ==
LOC: CVS 06:24
PROVIDERS: PCP Internal Medicine; Visit Provider Internal Medicine Cardiovascular Disease
DX: I10 Essential (primary) hypertension (principal); I49.3 Ventricular premature depolarization; I25.10 Atherosclerotic heart disease of native coronary artery without angina pectoris; R06.00 Dyspnea, unspecified; E78.5 Hyperlipidemia, unspecified
CPT/HCPCS: 78452; 93017; A9500

== ENCOUNTER → 2022-11-05 | Outpatient (CLI) | payer BC, SELFPAY ==
[2022-11-05 12:30] LABS: Hematocrit 42.9 % (37-47); Mean Corp Hgb Conc 32.6 g/dL (32-36); Mean Corpuscular Hgb 29.4 pg (27.0-32.0); Mean Corpuscular Volume 89.9 fL (81-99); Mean Platelet Vol. 12.2 fl (6.2-12.0); Platelet Count 186 K/mm3 (150-450); RBC Distribution Width CV 13.8 % (11.6-14.6); RBC Distribution Width SD 45.1 fl (35.1-43.9); Red Blood Count 4.77 M/mm3 (4.2-5.4); White Blood Count 7.3 K/mm3 (4.4-11.0)
[2022-11-05 12:44] LABS: International Normalized Ratio 1.1; Partial Thromboplast Time 25.7 Seconds (24.1-36.2); Prothrombin Time (Protime)PT. 13.9 SECONDS (11.7-14.9)
[2022-11-05 12:59] LABS: Anion Gap 7 (5-15); BUN 18 mg/dL (7-18); BUN/Creat Ratio 29.9 RATIO (10-20); Calcium,Total 9.2 mg/dL (8.5-10.1); Chloride 105 mmol/L (98-107); EST Glomerular Filtration Rate 107 mL/min (>60); Est Glom Filt Rate - Afr Amer 129 mL/min (>60); Glucose 122 mg/dL (74-106); Potassium 3.8 mmol/L (3.5-5.1); Sodium Level 139 mmol/L (136-145)
== END | disposition home or self-care (01) ==
PROVIDERS: PCP Internal Medicine; Referring Provider Internal Medicine Cardiovascular Disease; Visit Provider Internal Medicine Cardiovascular Disease
DX: R94.39 Abnormal result of other cardiovascular function study (principal); R53.83 Other fatigue; R06.00 Dyspnea, unspecified; I25.10 Atherosclerotic heart disease of native coronary artery without angina pectoris; I10 Essential (primary) hypertension; E78.5 Hyperlipidemia, unspecified; K76.0 Fatty (change of) liver, not elsewhere classified
CPT/HCPCS: 36415; 80048; 85027; 85610; 85730

== ENCOUNTER 2022-11-12 08:23 | Day surgery (SDC) | payer BC, SELFPAY ==
[2022-11-11 07:21] VITALS: BMI 43.6
--- NOTE | 2022-11-11 14:15 | PCM.HP.BLA ---
History and Physical Date of Admission: 11/12/22 [facility] [address] [place], [place] [address] MR#: [id number] Acct: [id number] Name:KAYLEIGH MATTHEWS Rep #: [id number] : 1960 Provider: Dr. Liam Maynard MD Age/Sex:? 62/F ?Location: [facility] [place] [place] Status: Signed [facility] History of Present Illness Details: This is a [age]-year-old lady with a history of palpitations, cardiac ectopy with PACs and PVCs, coronary artery calcification, and hypertension superimposed upon a history of COVID-19 who was previously been evaluated by my colleague Dr. Moyer who presents today for outpatient evaluation of progressive shortness of breath/dyspnea with exertion and progressive fatigue. She has been evaluated in the past based upon her symptoms and concerns with a Holter monitor and a transthoracic echocardiogram.? She has also had more than [address] scan/CTA.? Based upon her findings from her Holter monitor on 02-02-2021 she had sinus rhythm with rare PACs and occasional PVCs.? Her echo cardiographic findings from 02-12-2021 as well as 07-23-2022 are noted below.? Her chest CT findings from January 2021 and more recently from June 2022 are noted below. She states she has been following with pulmonology based upon her concerns especially her shortness of breath/dyspnea on exertion.? She has questioned whether or not this is related to a history of COVID-19.? She states she has undergone various pulmonology procedures and has been told that her shortness of breath and dyspnea on exertion is not my lungs . She denies any ongoing chest discomfort.? She denies orthopnea or PND or peripheral pitting edema.? She is not complaining of ongoing ectopy at this time.? There is been no near-syncope or syncope.? She states she is tired and fatigued. She states that she was told that she had coronary artery calcifications.? She was evaluated at the [facility] emergency department on 06-09-2022 for concerns of shoulder discomfort.? She was offered further evaluation with inpatient evaluation with an exercise tolerance test/imaging study.? She declined at the time.? She was referred for further cardiovascular evaluation. She did have lipid labs performed on 10-02-2022.? Her total cholesterol was 181 with an LDL of 95 and an HDL of 53.? Her triglycerides were 166. Intake Vital Signs ? 10/04/2210:36 10/04/2210:39 Height 5 ft 4 in 5 ft 4 in Weight: ? 254 lb 5 oz BMI ? 43.6 BP ? 120/88 H Blood Pressure Location ? Lt brachial Position ? Sitting Respiration ? 16 Pulse ? 76 Pulse Source ? Auscultation Intake Visit Reasons:?a-fib ([facility])/TRANSFER FROM [facility] Community Service Aide Required: No Accompanied by: Self Allergies prednisone Adverse Reaction (Intermediate, Verified 10/04/22 10:40) Hypertensivecranberries Adverse Reaction (Uncoded 10/04/22 10:40) Hives Medications atenolol 25 mg tablet 25 mg PO DAILY 09/06/19 [History Confirmed 10/04/22] cetirizine 10 mg tablet 10 mg PO DAILY PRN 03/29/21 [History Confirmed 10/04/22] coenzyme Q10 100 mg capsule (CoQ-10) 100 mg PO BID 03/29/21 [History Confirmed 10/04/22] omega-3 fatty acids 1,000 mg capsule (Fish Oil Concentrate) 1,000 mg PO DAILY 03/29/21 [History Confirmed 10/04/22] zolpidem 6.25 mg tablet,extended release,multiphase 6.25 mg PO QHS 03/29/21 [History Confirmed 10/04/22] lisinopril 10 mg tablet 10 mg PO DAILY 04/04/21 [History Confirmed 10/04/22] colestipol 1 gram tablet 1 g PO BID #120 tabs 10/02/22 [Rx Confirmed 10/04/22] ursodiol 300 mg capsule 300 mg PO BID NAFLD #180 caps 10/02/22 [Rx Confirmed 10/04/22] cholecalciferol (vitamin D3) 125 mcg (5,000 unit) tablet 125 mcg PO DAILY 10/04/22 [History Confirmed 10/04/22] lactobacillus combination no.9 4 billion cell capsule (Adult 50 Plus Probiotic) 4,000 mmu cells PO DAILY 10/04/22 [History Confirmed 10/04/22] PFSH Medical History? Abdominal mass, LUQ (left upper quadrant) Abnormal liver scan Allergic rhinitis Anxiety and depression Atypical chest pain Back pain BPV (benign positional vertigo) Diabetes mellitus type II, controlled Dyspnea Elevated LFTs Essential (primary) hypertension Fatigue Fatty liver Fibromyalgia GERD (gastroesophageal reflux disease) Hemorrhoids Hyperlipidemia Lipoma Lung nodule Morbid obesity Muscle pain Palpitations Pulmonary nodules/lesions, multiple (01/2021) PVCs (premature ventricular contractions) RLS (restless legs syndrome) Splenomegaly Tachycardia Type 2 diabetes mellitus Vitamin D deficiency Surgical History? History of colonoscopy History of foot surgery History of laparoscopic cholecystectomy History of vaginal hysterectomy Family History? Mother? No problems noted. Other Adopted Social History? Smoking Status:? Former smoker quit date: 10/27/91 pack-years: 15 ROS Const Const: Positive for fatigue (severe fatigue); Negative for weakness, body ache, fever(s), headache(s), chills, frequent falls, night sweats, daytime sleepiness, difficulty sleeping, excessive sweating, weight gain, weight loss, increased appetite, poor appetite, anorexia or other Eyes Eyes: Negative for blurry vision or double vision ENT ENT: Negative for headache(s), dizziness or balance problems Cardio Chest Pain: No Palpitations: Yes (occasional) feels like its: fast and skipping Edema: None Muscle aches with walking: None Resp Respiratory: Positive for SOB with activity (since ..slowly improving); Negative for SOB at rest, SOB orthopnea\SOB lying down, Cough, Coughing up blood/hemoptysis, chest congestion, pain on inspiration, snoring, stridor, wheezing, crackles, paroxysmal nocturnal dyspnea or other Musc Musc: Positive for muscle weakness (Rt LE) and joint pain (Lt shoulder pain); Negative for muscle aches/ myalgia or balance problems Neuro Neuro: Negative for dizziness, lightheadedness, near syncope, syncope, orthostatic symptoms, frequent falls, headache(s), weakness, confusion, memory loss, restless legs, blurry vision, double vision, vertigo, seizures, lack of coordination or other Endo Endo: Positive for fatigue (severe fatigue); Negative for excessive sweating Cardiology Exam Const Appearance: cooperative, healthy appearing, comfortable, no acute distress, well developed and well groomed Nutritional Appearance: well nourished and obese Orientation: alert, awake and oriented x3 Head Head: normal to inspection, normocephalic and atraumatic Ears: hearing grossly normal bilaterally and external ears normal Nose: no nasal discharge Face and Sinus: face symmetric Eyes Eyelids: eyelids normal Conjunctivae: conjunctivae normal Pupils: PERRL EOM: EOM intact bilaterally Neck Neck: normal visual inspection, trachea midline and no JVD JVD: +5 Carotids: normal carotid upstroke Chest Chest inspection: normal inspection of the chest, symmetric chest movement and normal respiratory effort Auscultation: Bilateral: Clear to Auscultation Cardio Palpation: normal PMI Rate: regular rate Rhythm: regular rhythm Heart sounds: S1 normal, S2 normal and normal, physiologic split S2; Negative rub, gallop or murmur GI GI: normal to inspection, soft, bowel sounds present and obese Neuro General: patient alert, patient awake, patient oriented x3, gait normal and moves all extremities Skin Skin: no rashes or lesions noted Extremities Pulses: Normal: Right Radial Pulse and Left Radial Pulse Lower Extremity Edema: None: Bilateral Musculoskel Musculoskeletal: No joint tenderness Psych Psychological: normal affect Supplemental Info Supplemental Information Echocardiogram: 02-12-2021 Interpretation Summary The estimated ejection fraction is 60 %. No evidence for diastolic dysfunction. The study was technically difficult. Contrast injection was performed. ? Echocardiogram: 07-23-2022 Interpretation Summary The study was technically difficult. Contrast injection was performed. ? Based upon the 2D echocardiographic and contrast enhanced images obtained there appears to be grossly normal left ventricular size, wall motion, and systolic function. The estimated ejection fraction is 55 %. Trivial mitral valve insufficiency. Trivial tricuspid valve insufficiency. No evidence for diastolic dysfunction. Chest CTA: 01/28/2021 FINDINGS: Bolus timing limits evaluation for pulmonary embolism.? There is no pulmonary embolism within the main pulmonary artery or right and left main pulmonary arteries.? There is no segmental pulmonary artery embolism identified. Normal thoracic aorta and visualized great vessels. There is no demonstrated aortic dissection. Normal heart and pericardium.? Coronary artery calcifications. Normal mediastinum.? Normal hilar regions. There is a 4 mm left upper lobe pulmonary nodule.? There is a 5 mm left upper lobe pulmonary nodule.? There is atelectasis/scarring within the lungs.? No pneumothorax or pleural effusion is seen.? There is a 3 mm right lower lobe pulmonary nodule.? There is a 4 mm right lower lobe pulmonary nodule.? There is a 5 mm right upper lobe pulmonary nodule.? There is a 3 mm right middle lobe pulmonary nodule. Normal chest wall structures. There are degenerative changes of thoracic spine.? Scoliotic curvature to the spine. Please see dedicated CT abdomen and pelvis for abdominal findings. CT/CTA Chest W/WO Contrast IMPRESSION: Bolus timing limits evaluation for pulmonary embolism.? There is no pulmonary embolism within the main pulmonary artery or right and left main pulmonary arteries.? There is no segmental pulmonary artery embolism identified. ? Coronary artery calcifications. ? No aortic aneurysm or dissection. ? Multiple pulmonary nodules are present.? No prior imaging is available for comparison.? Recommend correlation with prior studies for stability versus follow-up CT scan of the chest in 6 months to ensure stability and to exclude neoplasm ? There is atelectasis/scarring within the lungs.? There is no focal consolidation identified. ? Other findings as discussed above. ? Electronically Signed: Curtis Darling MD at 6:53 EDT Chest CTA: 07/18/2022 FINDINGS: Normal enhancement of the main pulmonary artery and right and left pulmonary arteries.? Normal enhancement of the bilateral peripheral pulmonary arteries.? There is no demonstrated pulmonary embolism. Normal thoracic aorta and visualized great vessels. There is no demonstrated aortic dissection. Normal heart and pericardium. Normal mediastinum.? Normal hilar regions. Normal visualized trachea and bronchi.? The lungs are well expanded. Normal pulmonary parenchyma. Normal pleura. Normal chest wall structures. Normal osseous structures. Normal visualized upper abdomen. CT/CTA Chest W/WO Contrast IMPRESSION: No evidence of pulmonary embolism or aortic dissection.? No evidence of acute cardiopulmonary process or focal consolidation. ? Electronically Signed: Ramiro Daniels DO at 15:29 EDT Reading Location ID and State: [id number] / [place] Labs: ?? ? LDL Cholesterol 95 mg/dL (0-130) ?? ? HDL Cholesterol 53 mg/dL (40-) ?? ? Triglycerides 166 mg/dL (-199) ?? ? VLDL Cholesterol 33 mg/dL (5-40) Diagnostics: ?? ? Electrocardiogram ? Echocardiogram ? Abdomen US ? Chest X-Ray ? Pulmonary: ?? ? Pulmonary Function Test ? Pulmonary Exercise Test ? Assessment and Plan Assessment and Plan (1) Dyspnea on minimal exertion: ?Status:?Acute ?Plan: At the present time she will continue her current therapy. She will undergo further evaluation with an exercise tolerance test/imaging study to evaluate for obvious myocardial ischemia that would be contributing to her symptoms.? Depending upon the findings she may or may not need additional cardiac versus noncardiac evaluation. (2) Coronary artery calcification seen on CAT scan: ?Status:?Acute ?Plan: She does have an element of coronary artery calcification documented on her previous chest CT scan.? This does increase her cardiovascular risks for having underlying atherosclerotic coronary disease. She will continue her current therapy at this time. She will continue evaluation and care as noted. (3) Ectopic cardiac beats: ?Status:?Acute ?Plan: She does have documented PACs and PVCs. The moment she appears without significant symptoms or adverse events and/or compromise. (4) Essential (primary) hypertension: ?Status:?Chronic ?Plan: Her blood pressure appears to be reasonably well controlled at the moment. She does need to monitor at home for any significant changes that would warrant adjustment of her medications. (5) Hyperlipidemia: ?Status:?Chronic ?Plan: Her lipid labs were reviewed with her. She was encouraged to continue a heart healthy diet and try and exercise as best as possible to assist with her risk factors. (6) Fatigue: ?Status:?Acute ?Plan: She states she is chronically fatigued. She states she has undergone laboratory studies to evaluate her fatigue which have been unremarkable. Based upon her cardiovascular concern she will proceed with her evaluation for any obvious evidence of underlying CAD that may be contributing to her fatigue. (7) Obesity: ?Status:?Acute ?Plan: She is unfortunately obese. She admits that some of her symptoms may be related to her obesity. She was encouraged on dietary management to try and help bring her weight under better control. In the meantime she will continue her cardiovascular evaluation. ? ? ? Orders: Orders Nuclear Stress Test - Treadmil Today E78.5 - Hyperlipidemia, unspecified, I10 - Essential (primary) hypertension, I25.10 - Atherosclerotic heart disease of [place] coronary artery without angina pectoris, R06.00 - Dyspnea, unspecified ? Plan Details Additional Comments: The above was discussed with the patient.? She was agreeable to this evaluation care plan. Thank you for allowing me to participate in the care of your patient.? Please don't hesitate to call if any issues arise. This note was generated using a voice recognition system and there may be incorrect words, spelling or punctuation that were not noted when reviewing the office note prior to saving. Follow Up: ? ? 6 Months (PFM ) COVID (Procedure Consent) Procedure Criteria Procedure Criteria: Yes Elective The surgeon/proceduralist and patient have discussed in detail the risk of exposure to and/or potential harm posed by the COVID-19 virus with having a surgery/procedure at this time versus the risk of? delaying the surgery/procedure. It is not possible to know either the risk of delaying the surgery or procedure or chance of getting an infection with perfect accuracy, but a joint decision was made between the patient and the surgeon/proceduralist ?to proceed at this time with the scheduled surgery/procedure as indicated on the consent form. Coding Level of Care Code Off vis,est,level 4 Diagnoses Dyspnea on minimal exertion? R06.00 Coronary artery calcification seen on CAT scan? I25.10 Ectopic cardiac beats? I49.49 Essential (primary) hypertension? I10 Hyperlipidemia? E78.5 Fatigue? R53.83 Obesity? E66.9 Coding Level of Care Code Off vis,est,level 4 Diagnoses Dyspnea on minimal exertion? R06.00 Coronary artery calcification seen on CAT scan? I25.10 Ectopic cardiac beats? I49.49 Essential (primary) hypertension? I10 Hyperlipidemia? E78.5 Fatigue? R53.83 Obesity? E66.9 10/04/22 1201 <Electronically signed by Liam Maynard MD> Date Liam Maynard MD Cosigner Signature: Date (if applicable) CC:? Dr. Erin Craven, DO ~ Assessment & Plan Addt'l Comments Addendum: 11-12-2022 I have examined the patient the following changes are noted: The patient underwent additional evaluation with an exercise tolerance test/imaging study on 10-23-2022. The results are noted below. Stress Test Report Date: Of study: 10-22-2022 Procedure: Exercise tolerance test/imaging study Indications: Shortness of breath/dyspnea; fatigue; cardiac ectopy/PACs/PVCs; coronary artery calcification; hypertension; COVID-19 Consent: Per the patient Procedure: The patient exercised on a Jackson protocol for 3 minutes and 36 completing Stage I and 30 seconds of Stage II achieving a peak heart rate of 157 bpm (100% predicted maximal heart rate) with resting blood pressure of 130/82 mmHg and a peak blood pressure 190/100 mmHg and a peak MET capacity of 5 normal sinus rhythm METs. The baseline ECG demonstrated.? The peak exercise ECG demonstrated no obvious ECG changes. There was an occasional PVC pretest, a rare PAC during exercise, and occasional PVCs/transient ventricular bigeminy during recovery.? The functional capacity was considered decreased. There was no complaint of chest discomfort during exercise or recovery. The examination was discontinued secondary to dyspnea. Impression: 1.? Technically adequate (percent predicted maximal heart rate greater than 85%) exercise tolerance test 2.? Peak exercise ECG with no obvious ECG changes 3.? There was an occasional PVC pretest, a rare PAC during exercise, and an occasional PVC/transient ventricular bigeminy during recovery 4.? Nuclear images pending Myocardial perfusion imaging study: Technique: The patient was injected with 14.5 mCi of technetium 99m Cardiolite and subsequently rest SPECT Cardiolite nuclear imaging was obtained in the horizontal long, vertical long, and short axis views. The patient exercised on a Jackson protocol for 3 minutes and 36 completing Stage I and 30 seconds of Stage II achieving a peak heart rate of 157 bpm (100% predicted maximal heart rate) with resting blood pressure of 130/82 mmHg and a peak blood pressure 190/100 mmHg and a peak MET capacity of 5 normal sinus rhythm METs.? The patient was injected with 44.1 mCi of technetium 99m Cardiolite and subsequently stress SPECT Cardiolite nuclear imaging was obtained in the horizontal long, vertical long, and short axis views.? A gated Cardiolite study at peak stress was obtained. Interpretation: Rest and stress SPECT Cardiolite nuclear imaging status post realignment, normalization, and attenuation correction, demonstrates the appearance of diminished myocardial perfusion/tracer uptake in portions of the distal anterior/anteroseptal/anteroapical segments which appear to be more prominent following stress as opposed to rest.? There is end systolic thickening and brightening.? The gated Cardiolite study demonstrates myocardial thickening and inward wall motion.? The reported LVEF is 52%. Impression: 1.? Rest and stress SPECT Cardiolite nuclear imaging demonstrate myocardial perfusion changes potentially compatible with an element of soft tissue attenuation/artifact however, post-rest myocardial perfusion changes potentially compatible with an area of stress-induced myocardial ischemia in portions of the distal anterior, anteroseptal, and anteroapical segments cannot necessarily be excluded. 2.? The gated Cardiolite study reports an LVEF of 52%. The patient's clinical course and objective findings were discussed with her. The recommendation was made for further definitive evaluation with diagnostic cardiac catheterization. The procedure and risks were discussed with the patient. She was agreeable to this approach. This note was generated using a voice recognition system and there may be incorrect words, spelling or punctuation that were not noted when reviewing the office note prior to saving.
--- NOTE | 2022-11-12 11:05 | CL.D_ITS ---
Patient Name: KAYLEIGH MAYORGA Study Date: 11/12/2022 Performing: Liam Maynard MD Ht: 64 inches 162.56 cm : 1960 Wt: 253.99 lbs 115.21 kg Age: 62 Gender: female BSA: 2.17 PROCEDURE(S) PERFORMED DC01-(65840)LHC/COR/LV CLINICAL PROFILE AND INDICATIONS Indications: Cardiac Arrythmia Heart Failure: None Stress/Imaging Date: 10/23/2022tress Test with SPECT MPI: Positive Intermediate Risk Angina Classification Anginal Classification w/in 2 Weeks: Anginal Equivalent Dyspnea CAD Presentations: Other: palpitations; shortness of breath CONCLUSIONS Elevated Left Ventricular End Diastolic Pressure Normal LV size, wall motion,and systolic function LVEF: by LV gram 60 % Normal coronary arteries RECOMMENDATIONS Risk factor modification Medical therapy DESCRIPTION OF PROCEDURE The patient arrived to the procedure lab. The risks and benefits of the procedure as well as a full description of our services here and current unavailability of surgical backup were fully explained to the patient and/or their significant other prior to the catheterization. The Timeout was completed, verifying the correct patient and procedure. The patient's procedural site was prepped and draped in the usual fashion. Local anesthetic was given subcutaneously to right radial region with Lidocaine 2%. Local anesthetic was given subcutaneously to right groin region with Lidocaine 2%. Using a modified Seldinger technique, arterial access was obtained via the right radial artery, a 6Fr sheath was inserted., arterial access was obtained via the right femoral artery, a 4Fr sheath was inserted Left Coronary Artery selective angiography was performed in multiple views using a 5 Fr. 4.0 Townsend catheter. unable to engage LCA. abort radial. Left Coronary Artery selective angiography was performed in multiple views using a 4 Fr. JL5 catheter. Right Coronary Artery selective angiography was then performed in multiple views using a 4 Fr. 3DRC catheter. Left Ventriculography was performed in HODGE projection using a 4 Fr. Pigtail catheter. LV to AO pullback pressures were then recorded.The arterial sheath was pulled and manual compression applied until hemostasis is achieved.. The arterial sheath was pulled and a TR Band was applied for hemostasis. 11cc of air CORONARY ANGIOGRAPHY DOMINANCE: Right Dominant LEFT HEART ASSESSMENT Left Ventricular Ejection Fraction: by LV Gram 60 % Normal LV wall motion Elevated Left Ventricular End Diastolic Pressure LVEDP: 22 mmHg LEFT MAIN: Angiographically normal LEFT ANTERIOR DESCENDING ARTERY: Angiographically normal CIRCUMFLEX ARTERY: Angiographically normal RAMUS: Angiographically normal RIGHT CORONARY ARTERY: Angiographically normal AORTIC ROOT: Angiographically normal COMPLICATIONS No Complications PROCEDURE MEDICATIONS Fentanyl 50 mcg IV Versed 1 mg IV Fentanyl 50 mcg IV Versed 1 mg IV Oxygen: 2 L/min via nasal cannula Heparin given IA 11/12/2022 10:06:37 Zofran 4 mg IV 11/12/2022 09:34:16 SUMMARY OF HEMODYNAMIC DATA Time AIR REST ECG 08:48:59 Art 147/72 (96) 09:51:32 AO 132/76 (103) SA 10:22:46 LV 134/-1, 27 10:29:21 LV 127/9, 22 10:29:37 LV 134/17, 34 10:30:11 LVp 130/15, 27 10:30:17 AOp 145/83 (111) 10:30:22 Signed By Liam Maynard MD On 11/12/2022 11:04:42 Liam Maynard MD
== END 2022-11-12 15:05 | disposition home or self-care (01) ==
PROVIDERS: PCP Internal Medicine; Referring Provider Internal Medicine Cardiovascular Disease; Visit Provider Internal Medicine Cardiovascular Disease
DX: I25.118 Atherosclerotic heart disease of native coronary artery with other forms of angina pectoris (principal); Z68.41 Body mass index [BMI] 40.0-44.9, adult; R06.02 Shortness of breath; E78.5 Hyperlipidemia, unspecified; R00.2 Palpitations; R53.83 Other fatigue; E66.9 Obesity, unspecified; I10 Essential (primary) hypertension; I49.9 Cardiac arrhythmia, unspecified; K76.0 Fatty (change of) liver, not elsewhere classified; Z79.82 Long term (current) use of aspirin; Z79.899 Other long term (current) drug therapy; Z86.16 Personal history of COVID-19; Z87.891 Personal history of nicotine dependence
CPT/HCPCS: 93458; 99152; 99153; J7040; Q9967; C1769; C1894; J2405

== ENCOUNTER → 2022-12-11 | Outpatient (CLI) | payer BC, SELFPAY ==
--- NOTE | 2022-12-11 15:23 | US_ITS ---
ACR Level 3 findings have been noted. An addendum which confirms receipt of the report will follow. INDICATION: HIRSUTISM EXAMINATION: US Pelvis Non-OB Complete TECHNIQUE: Transabdominal pelvic ultrasound was performed. Grayscale, spectral waveform, and color flow Doppler evaluation of the adnexa. COMPARISON: Pelvic ultrasound from 02/12/2021 FINDINGS: Nonvisualized uterus and left ovary, status post partial hysterectomy. Right ovary measures 2.8 x 1.9 x 2.2 cm, with normal color Doppler flow and spectral Doppler waveforms. Small avascular cyst within right ovary measures 1.9 x 1.3 x 1.5 cm. Within this cyst is small eccentric, avascular and echogenic nodule measuring 5 mm diameter. No significant free pelvic fluid detected. Unremarkable urinary bladder measures 276 mL, with no postvoid imaging performed. US/Pelvic (Non ) IMPRESSION: Small slightly complex 1.9 cm right ovarian cyst. Possible small ovarian dermoid or cystic neoplasm. Recommend repeat ultrasound in a few weeks (to reassess) or further evaluation with pelvic MRI. Electronically Signed: Alvaro Trujillo MD at 7:20 EST ,
== END | disposition home or self-care (01) ==
LOC: US 15:20
PROVIDERS: PCP Internal Medicine; Referring Provider Internal Medicine; Visit Provider Internal Medicine
DX: L68.0 Hirsutism (principal)
CPT/HCPCS: 76856

== ENCOUNTER → 2023-01-03 | Outpatient (CLI) | payer BC, SELFPAY ==
--- NOTE | 2023-01-03 15:17 | US_ITS ---
STUDY: ULTRASOUND OF THE FEMALE PELVIS - COMPLETE REASON FOR EXAM: Female, 62 years old. Ovarian cyst. Recheck. LMP: Unknown. TECHNIQUE: Transabdominal TECHNICAL QUALITY: Adequate. COMPARISON: December 11, 2022 FINDINGS: The uterus is surgically absent. The right ovary is visualized. The right ovary measures 2.1 x 2.8 x 2.3 cm. There is no evidence of ovarian cyst or follicle on today''s examination. There is no visualized right adnexal mass or complex lesion. There is normal arterial and normal venous vascularity. The left ovary is surgically absent. There is no visualized left adnexal mass or complex lesion. There is no fluid in the cul-de-sac. The pre void volume of the bladder was 54 ml. The urinary bladder is grossly normal. Polycystic ovary disease: No. US/Pelvic (Non ) IMPRESSION: Resolution of the right ovarian cyst seen on the previous study. The remainder of the findings are stable. Electronically Signed: Daniel Manjarrez DO at 19:56 EST ,
== END | disposition home or self-care (01) ==
LOC: US 15:16
PROVIDERS: PCP Internal Medicine; Visit Provider Internal Medicine
DX: L68.0 Hirsutism (principal)
CPT/HCPCS: 76856

== ENCOUNTER → 2023-01-07 | Outpatient (CLI) | payer BC, SELFPAY | END | disposition home or self-care (01) | PROVIDERS: PCP Internal Medicine; Visit Provider Internal Medicine Cardiovascular Disease | DX: R53.83 Other fatigue (principal); I49.49 Other premature depolarization; R00.2 Palpitations; R00.0 Tachycardia, unspecified | CPT/HCPCS: 93225; 93226 ==

== ENCOUNTER → 2023-03-01 | Outpatient (CLI) | payer BC, SELFPAY ==
--- NOTE | 2023-03-01 09:04 | US_ITS ---
STUDY: ABDOMINAL ULTRASOUND - RIGHT UPPER QUADRANT REASON FOR VISIT: Female, 62 years old NAFLD TECHNIQUE: Ultrasound evaluation of the right upper quadrant was performed with real-time and static valero-scale imaging. TECHNICAL QUALITY: Adequate. COMPARISON: Comparison is made with prior examination of July 05, 2022. FINDINGS: Liver: The liver is mildly enlarged and measures 18.2 cm. There is increased echogenicity consistent with fatty infiltration. The bile ducts are within normal limits. There is hepatic color flow. The direction of portal flow is hepatopetal. There is an 8 mm x 10 mm x 10 mm cyst in the left lobe of the liver. Gallbladder: The patient is status post cholecystectomy. Common Bile Duct (C.B.D.): The common bile duct measures 6 mm. Pancreas: Normal size of the head, body and tail of the pancreas. There is normal echogenicity of the pancreas. There is no demonstrated pancreatic mass or cyst. Right Kidney: Normal size of the right kidney. The right kidney measures 10.8 cm x 5.8 cm x 5.8 cm. Normal renal cortex. The right cortex measures 1.5 cm. There is no demonstrated renal mass or cyst. There is no right hydronephrosis. IMPRESSION: Mild hepatomegaly and fatty infiltration of the liver. Stable small cyst is seen in the left lobe of the liver. The patient is status post cholecystectomy. Electronically Signed: Ramesh Shukla MD at 10:39 EDT , STUDY: ABDOMINAL ULTRASOUND - ELASTOGRAPHY REASON FOR VISIT: Female, 62 years old. NAFLD TECHNIQUE: Liver stiffness measurements were obtained on a Tandem 85 ultrasound machine using a CA 1-7 probe following the SRU guidelines. 3 measurements were obtained using a 2-D-SWE method. TheIQR/M was 14% suggesting a quality data set. TECHNICAL QUALITY: Adequate. COMPARISON: Comparison is made with prior study done earlier today. FINDINGS: Liver: Fatty infiltration of the liver. Median liver stiffness measured 10 kPa. Abdomen: There is no demonstrated mass lesion. US/ABD Limited w/ Elastography IMPRESSION: Liver stiffness measures 10 kPa compatible with F2-F3 (Mild to moderate liver fibrosis) Metavir score. Electronically Signed: Ramesh Shukla MD at 10:41 EDT ,
== END | disposition home or self-care (01) ==
PROVIDERS: PCP Internal Medicine; Referring Provider Nurse Practitioner Adult Health; Visit Provider Nurse Practitioner Adult Health
DX: K76.0 Fatty (change of) liver, not elsewhere classified (principal)
CPT/HCPCS: 76705; 76981

== ENCOUNTER → 2023-04-09 | Outpatient (CLI) | payer BC, SELFPAY ==
[2023-04-09 11:48] LABS: Absolute Lymphocyte Count 1.85 X10^3/uL (0.83-4.51); Basophil# 0.06 X10^3/uL; Basophil% 0.9 % (0-1); Eosinophil# 0.31 X10^3/uL; Eosinophils% 4.5 % (0-5); Hematocrit 42.5 % (37-47); Hemoglobin 14.1 g/dL (12.0-15.0); Lymphocyte # 1.85 X10^3/ul (0.83-4.51); Mean Corp Hgb Conc 33.2 g/dL (32-36); Mean Corpuscular Hgb 30.5 pg (27.0-32.0); Mean Platelet Vol. 12.1 fl (6.2-12.0); Monocyte# 0.57 X10^3/uL; Monocyte% 8.3 % (0-10); NRBC Flagged by Analyzer 0 % (0-5); Neutrophil # 4.02 X10^3/uL (2.7-7.7); Neutrophil % 58.9 % (47-70); Platelet Count 148 K/mm3 (150-450); RBC Distribution Width CV 13.6 % (11.6-14.6); RBC Distribution Width SD 46.2 fl (35.1-43.9); Red Blood Count 4.62 M/mm3 (4.2-5.4); White Blood Count 6.8 K/mm3 (4.4-11.0)
[2023-04-09 12:10] LABS: AST(SGOT) 36 U/L (15-37); Alanine Aminotransfer ALT/SGPT 71 U/L (13-56); Albumin, Serum 3.5 g/dL (3.2-5.0); Alkaline Phosphatase 101 U/L (45-117); Anion Gap 5 (5-15); BUN 17 mg/dL (7-18); BUN/Creat Ratio 26.9 RATIO (10-20); Calcium,Total 9.2 mg/dL (8.5-10.1); Chloride 107 mmol/L (98-107); Creatinine, Serum 0.63 mg/dL (0.55-1.02); EST Glomerular Filtration Rate 101 mL/min (>60); Est Glom Filt Rate - Afr Amer 122 mL/min (>60); Globulin 3.6 g/dL (2.2-4.2); Glucose 117 mg/dL (74-106); Potassium 4.4 mmol/L (3.5-5.1); Protein, Total 7.1 g/dL (6.4-8.2); Sodium Level 138 mmol/L (136-145)
== END | disposition home or self-care (01) ==
LOC: LAB 11:26
PROVIDERS: PCP Internal Medicine; Referring Provider Nurse Practitioner Adult Health; Visit Provider Nurse Practitioner Adult Health
DX: K76.0 Fatty (change of) liver, not elsewhere classified (principal)
CPT/HCPCS: 36415; 80053; 85025

== ENCOUNTER → 2023-11-04 | Outpatient (CLI) | payer BC, SELFPAY ==
--- NOTE | 2023-11-04 15:28 | BI_ITS ---
MAMMOGRAPHY - BILATERAL SCREENING REASON FOR EXAM: Female, 63 years old. Routine annual screening examination. PERTINENT HISTORY: Non-contributory. TECHNIQUE: Digital bilateral breast gill (3D mammographic acquisition) in the CC and MLO projections. 2-D mediolateral oblique (MLO) and craniocaudad (CC) views of both breasts were obtained. CAD: Full Field Digital Mammography with Computer Added Detection was performed. COMPARISON: Comparison is made with prior study June 17, 2022 and March 30, 2021. FINDINGS: Breast Composition: The breasts are almost entirely fatty. There are no dominant masses or suspicious calcifications. Stable small bilateral axillary lymph nodes. No other significant abnormalities are identified. There has been no significant change since the prior study. BI/SCRN MAMM (CAD)W/GILL BILAT IMPRESSION: Stable bilateral screening mammogram. Yearly follow-up mammogram recommended. (A) ASSESSMENT CATEGORY: BIRADS Category 2: Benign. A letter regarding these results will be sent to the patient by the facility within 30 days. Approximately 10% of breast cancers are not detected by mammography. A normal mammogram should not delay biopsy of a clinically suspicious abnormality. [id number] Electronically Signed: Ramesh Shukla MD at 9:16 EST ,
--- NOTE | 2023-11-04 15:31 | BD_ITS ---
STUDY: DUAL ENERGY X-RAY ABSORPTIOMETRY / DXA REASON FOR EXAM: Female, 63 years old. [id number] TECHNIQUE: Bone Mineral Density (BMD) measurements of lumbar spine and bilateral hips were obtained. COMPARISON: Comparison is made with prior study dated November 07, 2016. FINDINGS: Lumbar Spine (L1-L4): g/cm2 (0.868) / T-score (-1.9) / Z-score (-0.1) Findings are suggestive of osteopenia with a moderate fracture risk. Left Femur Total: g/cm2 (0.946) / T-score (0.0) / Z-score (1.2) Left Femoral Neck: g/cm2 (0.771) / T-score (-0.7) / Z-score (0.8) Right Femur Total: g/cm2 (0.953) / T-score (0.1) / Z-score (1.3) Right Femoral Neck: g/cm2 (0.862) / T-score (0.1) / Z-score (1.6) The T-Scores on the most recent prior examination were: Lumbar Spine (L1-L4): There has been worsening of bone density since the previous examination. Left Femur Total: which represents an improvement of 1.4%. Right Femur Total: which represents a worsening of 5.9%. BD/Dexa Bone Density Study IMPRESSION: The patient is considered osteopenic as outlined below according to World Steve Organization (WHO) criteria with a moderate fracture risk. There has been worsening of bone density since the previous examination. Reference Information: The T-score is the number of standard deviations above or below the standard which is normal for young adults at their peak bone mineral density. The World Health Organization (WHO) interprets the T-scores as follows: Above -1 Normal bone density Between -1 and -2.5 Osteopenia Equal to / or below -2.5 Osteoporosis As a practical clinical guideline, osteopenia may be graded as follows: Mild -1 through -1.5 Moderate -1.6 through -2.0 Severe -2.1 through -2.4 The Z-score is the number of standard deviations above or below age-matched controls. A Z-score of less than -1.5 would be considered abnormal. References: 1. NIH Osteoporosis and Related Bone Diseases www osteo.org 2. International Society for Clinical Densitometry www iscd.org 3. National Osteoporosis Foundation www nof.org Electronically Signed: Ramesh Shukla MD at 12:38 EST ,
== END | disposition home or self-care (01) ==
LOC: OPBI 15:26
PROVIDERS: PCP Internal Medicine; Referring Provider Internal Medicine; Visit Provider Internal Medicine
DX: Z12.31 Encounter for screening mammogram for malignant neoplasm of breast (principal); Z78.0 Asymptomatic menopausal state
CPT/HCPCS: 77063; 77067; 77080

== ENCOUNTER → 2023-12-01 | Outpatient (CLI) | payer BC, SELFPAY ==
[2023-12-01 13:27] LABS: Absolute Lymphocyte Count 1.75 X10^3/uL (0.83-4.51); Basophil# 0.06 X10^3/uL; Basophil% 0.8 % (0-1); Eosinophil# 0.31 X10^3/uL; Lymphocyte # 1.75 X10^3/ul (0.83-4.51); Lymphocyte % 22.4 % (19-41); Mean Corp Hgb Conc 32.6 g/dL (32-36); Mean Corpuscular Hgb 29.7 pg (27.0-32.0); Mean Corpuscular Volume 91.3 fL (81-99); Mean Platelet Vol. 12.8 fl (6.2-12.0); Monocyte# 0.62 X10^3/uL; Monocyte% 7.9 % (0-10); NRBC Flagged by Analyzer 0 % (0-5); Neutrophil # 5.04 X10^3/uL (2.7-7.7); Neutrophil % 64.4 % (47-70); Platelet Count 186 K/mm3 (150-450); RBC Distribution Width CV 13.2 % (11.6-14.6); RBC Distribution Width SD 44.6 fl (35.1-43.9); Red Blood Count 4.71 M/mm3 (4.2-5.4); White Blood Count 7.8 K/mm3 (4.4-11.0)
[2023-12-01 13:40] LABS: Prothrombin Time (Protime)PT. 13.1 SECONDS (11.7-14.9)
[2023-12-01 14:14] LABS: Vitamin D,25 Hydroxy 22.2 ng/mL
[2023-12-01 14:15] LABS: ALB/GLOB Ratio 1.1 RATIO (0.9-2.4); AST(SGOT) 55 U/L (15-37); Alanine Aminotransfer ALT/SGPT 109 U/L (13-56); Albumin, Serum 3.9 g/dL (3.2-5.0); Alkaline Phosphatase 95 U/L (45-117); Anion Gap 5 (5-15); BUN 22 mg/dL (7-18); BUN/Creat Ratio 32.2 RATIO (10-20); CRP 7.72 mg/L (0.0-3.0); Calcium,Total 9.4 mg/dL (8.5-10.1); Chloride 107 mmol/L (98-107); Cholesterol 221 mg/dL (200); Creatinine, Serum 0.68 mg/dL (0.55-1.02); EST Glomerular Filtration Rate 92 mL/min (>60); Est Glom Filt Rate - Afr Amer 111 mL/min (>60); Globulin 3.6 g/dL (2.2-4.2); Glucose 116 mg/dL (74-106); High Density Lipoprotein 52 mg/dL; Potassium 3.9 mmol/L (3.5-5.1); Protein, Total 7.5 g/dL (6.4-8.2); Sodium Level 136 mmol/L (136-145); Triglycerides 151 mg/dL; Very Low Density Lipoprotein 30 mg/dL (5-40)
[2023-12-03 16:10] LABS: Deamidated Gliadin IgA 5 units (0-19); Deamidated Gliadin IgG 3 units (0-19); Endomysial Antibody IgA Negative (Negative); Immunoglobulin A 110 mg/dL (87-352); t-Transglutaminase IgA <2 U/mL (0-3)
== END | disposition home or self-care (01) ==
LOC: LAB 12:35
PROVIDERS: PCP Internal Medicine; Referring Provider Internal Medicine; Visit Provider Internal Medicine
DX: K52.9 Noninfective gastroenteritis and colitis, unspecified (principal); E11.9 Type 2 diabetes mellitus without complications; K76.0 Fatty (change of) liver, not elsewhere classified
CPT/HCPCS: 36415; 80053; 80061; 82105; 82306; 82784; 83036; 83516; 85025; 85610; 86140; 86255

== ENCOUNTER → 2023-12-08 | Outpatient (CLI) | payer BC, SELFPAY ==
[2023-12-10 15:08] LABS: Giardia Lamblia, Stool EIA Negative (Negative)
[2023-12-13 01:07] LABS: Calprotectin, Stool <5 ug/g (0-120)
== END | disposition home or self-care (01) ==
LOC: LAB 14:37
PROVIDERS: PCP Internal Medicine; Referring Provider Internal Medicine; Visit Provider Internal Medicine
DX: K76.0 Fatty (change of) liver, not elsewhere classified (principal); K52.9 Noninfective gastroenteritis and colitis, unspecified
CPT/HCPCS: 83993; 87329

== ENCOUNTER → 2023-12-17 | Outpatient (CLI) | payer BC, SELFPAY ==
--- NOTE | 2023-12-17 09:56 | US_ITS ---
STUDY: ABDOMINAL ULTRASOUND - RIGHT UPPER QUADRANT; ELASTOGRAPHY REASON FOR VISIT: Female, 63 years old. NAFL D TECHNIQUE: Ultrasound evaluation of the right upper quadrant was performed with real-time and static valero-scale imaging. Point quantification shear wave elastography was performed ([employer] TECHNICAL QUALITY: Adequate. COMPARISON: Comparison is made with prior study dated March 01, 2023. FINDINGS: Liver: The liver measures 17.4 cm. There is increased echogenicity consistent with fatty infiltration. The bile ducts are within normal limits. There is hepatic color flow. The direction of portal flow is hepatopetal. There is a 1 cm x 1 cm x 1 cm cyst in the left lobe of the liver. Median liver stiffness measured 10.7 kPa. Gallbladder: The patient is status post cholecystectomy. Common Bile Duct (C.B.D.): The common bile duct measures 6.5 mm. Pancreas: There is normal echogenicity of the visualized pancreas. There is no demonstrated pancreatic mass or cyst. Right Kidney: Normal size of the right kidney. The right kidney measures 11.2 cm x 6.3 cm x 5.8 cm. Normal renal cortex. The right cortex measures 1.2 cm. There is a 7 mm x 8 mm x 5 mm cyst in the inferior pole of the kidney. There is no right hydronephrosis. US/ABD Limited w/ Elastography IMPRESSION: 1. Liver stiffness measures 10.7 kPa compatible with F2-F3 (Mild to moderate liver fibrosis) Metavir score. Electronically Signed: Ramesh Shukla MD at 11:02 EST ,
== END | disposition home or self-care (01) ==
LOC: US 09:56
PROVIDERS: PCP Internal Medicine; Visit Provider Internal Medicine
DX: K76.0 Fatty (change of) liver, not elsewhere classified (principal); K52.9 Noninfective gastroenteritis and colitis, unspecified
CPT/HCPCS: 76705; 76981

== ENCOUNTER → 2024-06-15 | Outpatient (CLI) | payer MEDICARE, SELFPAY ==
[2024-06-15 17:57] LABS: Erythrocyte Sedimentation Rate 9 mm/hr (0-30)
[2024-06-15 18:37] LABS: CRP < 2.90 mg/L (0.0-3.0)
== END | disposition home or self-care (01) ==
LOC: MTLAB 16:35
PROVIDERS: PCP Internal Medicine; Referring Provider Orthopaedic Surgery; Visit Provider Orthopaedic Surgery
DX: Z47.1 Aftercare following joint replacement surgery (principal); G57.11 Meralgia paresthetica, right lower limb
CPT/HCPCS: 36415; 85652; 86140

== ENCOUNTER → 2024-12-07 | Outpatient (CLI) | payer MEDICARE, SELFPAY ==
--- NOTE | 2024-12-07 12:41 | CT_ITS ---
PROCEDURE: CHEST WITHOUT CONTRAST REASON FOR EXAM: Multiple nodules. TECHNIQUE: Chest CT without contrast. Coronal and sagittal 2D reformatted images were provided for better evaluation. COMPARISON: None provided. FINDINGS: Cardiac size is within normal limits. Thoracic aorta demonstrates normal caliber. Mild coronary artery calcifications are identified. No lymphadenopathy is present. No pericardial or pleural effusion is identified. Evaluation of the lung parenchyma demonstrates no consolidation or pneumothorax. Central airway is patent. There are multiple small subcentimeter bilateral pulmonary nodules with the largest in the right lung identified in the posterior right lower lobe measuring 4.5 mm (image 72 of 113). Largest pulmonary nodule in the left lung in the posterolateral left lower lobe measuring approximately 5 mm (image 64 of 113). Upper abdomen demonstrates no acute findings. There is a small hypodensity in the left hepatic lobe measuring 10 mm which is too small to characterize however likely relates to a cyst. Evaluation of the osseous structures demonstrates no acute findings. Degenerative changes are present. There is levoscoliosis of the upper thoracic spine. Multilevel lateral endplate spurring is present which is greater on the right. CT/Chest without Contrast IMPRESSION: 1. Multiple small subcentimeter bilateral pulmonary nodules with the largest me asuring approximately 5 mm. No comparisons are available to assess for stability. Recommend short-term CT chest follow-up in 6 months for reassessment. 2. No consolidation, pleural effusion, or pneumothorax. 3. Additional findings as above. LungRADS: 3, probably benign. Recommendation: Six-month CT chest follow-up. One or more dose reduction techniques were used (e.g., Automated exposure contr ol, adjustment of the mA and/or kV according to patient size, use of iterative reconstruction technique). Reading Location: [facility]
== END | disposition home or self-care (01) ==
LOC: CT 12:41
PROVIDERS: PCP Internal Medicine; Referring Provider Nurse Practitioner Acute Care; Visit Provider Nurse Practitioner Acute Care
DX: R91.8 Other nonspecific abnormal finding of lung field (principal)
CPT/HCPCS: 71250

== ENCOUNTER → 2025-01-24 | Outpatient (CLI) | payer MEDICARE, SELFPAY ==
--- NOTE | 2025-01-24 09:22 | US_ITS ---
PROCEDURE: EXT NON VASC LIMITED/SOFT TISS 01/24/2025 REASON FOR EXAM: PALPABLE MASS OF SOFT TISSUE OF SHOULDER TECHNIQUE: Ultrasound targeted to the palpable abnormality at the right shoulder.. COMPARISON: None FINDINGS: The palpable abnormality corresponds to a 1.6 cm x 1.4 cm x 0.6 cm well-defined isoechoic density. This most likely represents a lipoma. US/Ext Non Vasc Limited/Soft Tiss IMPRESSION: The palpable lump corresponds to a 1.6 cm 1.4 cm x 0.6 cm well-defined isoechoi c density suggestive of possible lipoma. Reading Location: [facility]
== END | disposition home or self-care (01) ==
LOC: US 09:22
PROVIDERS: PCP Internal Medicine; Referring Provider Internal Medicine; Visit Provider Internal Medicine
DX: M79.89 Other specified soft tissue disorders (principal)
CPT/HCPCS: 76882

== ENCOUNTER → 2025-02-01 | Outpatient (CLI) | payer MEDICARE, SELFPAY ==
--- NOTE | 2025-02-01 12:31 | EKG12_ITS ---
Test Reason : PRE OP Blood Pressure : */* mmHG Vent. Rate : 73 BPM Atrial Rate : 73 BPM P-R Int : 160 ms QRS Dur : 98 ms QT Int : 432 ms P-R-T Axes : 22 22 40 degrees QTcB Int : 475 ms Normal sinus rhythm Normal ECG Confirmed by ROHAN CHÁVEZ, GEORGINA ([id number]), graphics editor ANDREW PERAZA ([id number]) on 02/02/2025 5:47:36 AM Referred By: Cruz Vera Confirmed By: GEORGINA MADRIGAL MD
[2025-02-01 13:37] LABS: Absolute Neutrophil Count 4.8 X10^3/uL (2.0-7.7); Basophil# 0.08 X10^3/uL; Eosinophil# 0.59 X10^3/uL; Eosinophils% 7.2 % (0-5); Hematocrit 43.6 % (37-47); Hemoglobin 14.4 g/dL (12.0-15.0); Lymphocyte % 24.3 % (19-41); Mean Corpuscular Hgb 29.6 pg (27.0-32.0); Mean Corpuscular Volume 89.7 fL (81-99); Mean Platelet Vol. 12.3 fl (6.2-12.0); Monocyte# 0.66 X10^3/uL; NRBC Flagged by Analyzer 0 % (0-5); Neutrophil # 4.84 X10^3/uL (2.7-7.7); Neutrophil % 58.9 % (47-70); Platelet Count 176 K/mm3 (150-450); RBC Distribution Width CV 13.9 % (11.6-14.6); RBC Distribution Width SD 46.2 fl (35.1-43.9); Red Blood Count 4.86 M/mm3 (4.2-5.4); White Blood Count 8.2 K/mm3 (4.4-11.0)
[2025-02-01 13:57] LABS: Prothrombin Time (Protime)PT. 13.7 SECONDS (11.7-14.9)
[2025-02-01 13:58] LABS: Partial Thromboplast Time 24.2 Seconds (24.1-36.2)
[2025-02-01 14:06] LABS: ALB/GLOB Ratio 1.5 RATIO (0.9-2.4); AST(SGOT) 67 U/L (<=31); Alanine Aminotransfer ALT/SGPT 106 U/L (<=34); Albumin, Serum 4.2 g/dL (3.4-4.8); Alkaline Phosphatase 96 U/L (35-104); Anion Gap 12 (5-15); BUN 18 mg/dL (4-19); BUN/Creat Ratio 28.9 RATIO (10-20); Calcium,Total 9.5 mg/dL (7.6-11.0); Carbon Dioxide 24.5 mmol/L (21.0-32.0); Chloride 103 mmol/L (98-108); Creatinine, Serum 0.63 mg/dL (0.70-1.20); EST Glomerular Filtration Rate 99 (>60); Globulin 2.9 g/dL (2.2-4.2); Glucose 104 mg/dL (70-99); Potassium 4.1 mmol/L (3.3-5.1); Protein, Total 7.1 g/dL (5.9-8.4); Sodium Level 139 mmol/L (133-145); Total Bilirubin 0.38 mg/dL (0.00-1.30)
== END | disposition home or self-care (01) ==
LOC: PSN 12:14
PROVIDERS: PCP Internal Medicine; Referring Provider Orthopaedic Surgery; Visit Provider Orthopaedic Surgery
DX: G57.11 Meralgia paresthetica, right lower limb (principal); E11.9 Type 2 diabetes mellitus without complications; K76.9 Liver disease, unspecified; I10 Essential (primary) hypertension
CPT/HCPCS: 36415; 80053; 83036; 85025; 85610; 85730; 93005

== ENCOUNTER → 2025-03-07 | Outpatient (CLI) | payer MEDICARE, SELFPAY ==
--- NOTE | 2025-03-07 12:30 | MRI_ITS ---
EXAM: BRAIN WITHOUT CONTRAST CLINICAL HISTORY: DIPLOPIA COMPARISON: None. TECHNIQUE: Multiplanar, multisequence MR images of the brain were obtained without gadolinium contrast material. FINDINGS: No intracranial hemorrhage, mass, mass effect, midline shift or pathologic extra- axial fluid collection. No hydrocephalus. There is no significant white matter disease. No areas of restricted diffusion to suggest acute ischemia or infarction. No gradient signal blooming artifacts are identified. No cerebellar tonsillar ectopia. No sellar/suprasellar signal abnormalities. The ocular globes and intraorbital soft tissues are symmetrically unremarkable. Paranasal sinuses are essentially clear. MRI/Brain without Contrast IMPRESSION: Negative MRI of the brain. Reading Location: [facility]
== END | disposition home or self-care (01) ==
LOC: MRI 11:55
PROVIDERS: PCP Internal Medicine; Referring Provider Internal Medicine; Visit Provider Internal Medicine
DX: H53.2 Diplopia (principal)
CPT/HCPCS: 70551

== ENCOUNTER → 2025-05-20 | Outpatient (CLI) | payer MEDICARE, SELFPAY ==
--- NOTE | 2025-05-20 13:28 | BI_ITS ---
EXAM: SCRN MAMM (CAD)W/GILL BILAT DATE: 05/20/2025 CLINICAL HISTORY: F, Age 65 y/o , BREAST CANCER SCREENING TECHNIQUE: SCRN MAMM (CAD)W/GILL BILAT COMPARISON: Prior exam(s) dated 11/04/2023, 06/17/2022, 03/30/2021. FINDINGS: TISSUE DENSITY: The breasts are almost entirely fatty. Bilateral Breast Mammographic Findings: No significant masses, calcifications or other abnormalities are identified. BI/SCRN MAMM (CAD)W/GILL BILAT IMPRESSION: There is no mammographic evidence of malignancy. OVERALL FINAL ASSESSMENT BI-RADS 1: NEGATIVE. RECOMMENDATION: Routine annual follow-up in 1 Year A letter with findings and recommendations will be mailed to the patient. Reading Location: [id number]
== END | disposition home or self-care (01) ==
LOC: OPBI 13:27
PROVIDERS: PCP Internal Medicine; Referring Provider Internal Medicine; Visit Provider Internal Medicine
DX: Z12.31 Encounter for screening mammogram for malignant neoplasm of breast (principal)
CPT/HCPCS: 77063; 77067

== ENCOUNTER → 2025-06-01 | Outpatient (CLI) | payer MEDICARE, SELFPAY ==
--- NOTE | 2025-06-01 18:55 | CT_ITS ---
PROCEDURE: CHEST WITHOUT CONTRAST 06/01/2025 REASON FOR EXAM: FOLLOW PULMONARY NODULES QUIT SMOKING 30 YEARS AGO TECHNIQUE: Chest CT without contrast. Coronal and Sagittal reconstruction series were provided. One or more dose reduction techniques were used (e.g., Automated exposure control, adjustment of the mA and/or kV according to patient size, use of iterative reconstruction technique RADIATION DOSE SUMMARY: CTDlvol: 20.15 mGy DLP: 674 mGycm COMPARISON: CT scan on 12/07/2024. FINDINGS: Unchanged scattered bilateral pulmonary nodules with the largest in the right lung in the posterior right lower lobe measuring 4.5 mm. The largest pulmonary nodule in the left lung is in the posterolateral left lower lobe measuring 5 mm. Unchanged 10 mm hypodensity in the left hepatic lobe, probably a benign cyst. Splenomegaly measuring 14.5 cm, unchanged. Unchanged hepatic steatosis. Unchanged mild coronary artery calcifications. Normal unenhanced main pulmonary artery and right and left pulmonary arteries. Normal bilateral peripheral pulmonary arteries. Normal thoracic aorta and visualized great vessels. There is no demonstrated aortic aneurysm. Normal heart and pericardium. Normal mediastinum. Normal hilar regions. Normal visualized trachea and bronchi. Normal pleura. Normal remaining visualized upper abdomen. CT/Chest without Contrast IMPRESSION: Unchanged scattered bilateral pulmonary nodules with the largest in the right l vale in the posterior right lower lobe measuring 4.5 mm. The largest pulmonary nodule in the left lung is in the posterolateral left low er lobe measuring 5 mm. Unchanged 10 mm hypodensity in the left hepatic lobe, probably a benign cyst. Splenomegaly measuring 14.5 cm, unchanged. Unchanged hepatic steatosis. Unchanged mild coronary artery calcifications. Coronary artery calcification (CAC) is is present LungRADS: 3, probably benign. Recommendation: Six-month CT chest follow-up. Reading Location[facility]
== END | disposition home or self-care (01) ==
LOC: CT 18:54
PROVIDERS: PCP Internal Medicine; Referring Provider Nurse Practitioner Acute Care; Visit Provider Nurse Practitioner Acute Care
DX: R91.8 Other nonspecific abnormal finding of lung field (principal)
CPT/HCPCS: 71250

== ENCOUNTER → 2025-07-26 | Outpatient (CLI) | payer MEDICARE, SELFPAY ==
--- OUTSIDE RECORDS SUMMARY | 2025-07-03 10:29 | XMS RPT_ITS ---
Author Name Auto Generated Organization OHIP Care Team Providers Care Suppository Molding Machine Operator Name Role Phone TYREL QUIROGA Referring Unavailable BATOOL MCCORMACK Primary Care Unavailab BATOOL Dwyer Primary Care Unavailab TYREL Michael Attending Unavailable PROBLEMS DATE TYPE CONDITION / CODE ATTENDING STATUS [facility] 07/03/2025 Active Acute cough / R05.1(ICD-10) NA Active [facility] 07/03/2025 Active Viral illness / B34.9(ICD-10) TYREL QUIROGA Active [facility] PROCEDURES No Procedure Records Found RESULTS XR CHEST 2V FRONTAL/LAT Observed: 2024 10:46 AM Status: F Source: [facility] * * *Final Report* * * DATE OF EXAM: Jul 03 2025 10:46AM WOX [id number] - XR CHEST 2V FRONTAL/LAT / PROCEDURE REASON: Acute cough * * * * Physician Interpretation * * * * EXAMINATION: CHEST RADIOGRAPH (2 VIEW FRONTAL and LATERAL) CLINICAL HISTORY: Acute cough MQ: XC2_6 EXAM DATE/TIME: 07/03/2025 10:46 AM COMPARISON: No relevant prior studies available. RESULT: Lines, tubes, and devices: None. Lungs and pleura: There appears be a small hazy opacity overlying the left lower lung. No lung mass. No pleural effusion. No pneumothorax. Cardiomediastinal silhouette: Normal cardiomediastinal silhouette. Bones and soft tissues: Unremarkable. IMPRESSION: Small hazy opacity overlying the left lower lung. Consider follow-up. Frame Aligner: SYBIL Transcribe Date/Time: Jul 03 2025 12:06P Dictated by : QIAN HENDERSON MD This examination was interpreted and the report reviewed and electronically signed by: QIAN HENDERSON MD on Jul 03 2025 12:07PM EST [id number] PROGRESS Observed: 07/03/2025 10:40 AM Status: COMPLETED Source: [facility] HNO ID: [id number] Author: GEORGETTE PINEDA Tech Service: ? Author Type: Diet Kitchen Cook Type: Progress Notes Filed: 07/03/2025 10:46 Note Text: Radiology Service Progress Note PATIENT NAME: Mariaa Waldron DATE OF SERVICE: July 03, 2025 TIME: 10:46 AM PATIENT IDENTITY VERIFICATION COMPLETED USING TWO (2) IDENTIFIERS: Name and Date of confirmed by patient verbally. FALL SCREENING: Has the patient had 2 falls in the last year or 1 fall with injury or currently using an Ambulatory Assistive Device (Walker, Cane, Wheelchair, Crutches, etc.)? No PATIENT GENDER DATA: Assigned female at . status: : No status: NO. PATIENT RELEVANT IMPLANT DATA REVIEWED: Yes PATIENT PRESENTS WITH AN IMPLANTABLE OR ATTACHED FLOOR INSPECTOR: No RADIOLOGY DEPARTMENT: General X-ray: Exam(s) Completed: Chest X-Ray PERIPHERAL IV DATA: Not applicable SIGNED BY: Nilda Reddy July 03, 2025 10:46 AM PROGRESS Observed: 07/03/2025 10:29 AM Status: COMPLETED Source: [facility] HNO ID: [id number] Author: TYREL QUIROGA APRN.[facility] Service: ? Author Type: Nurse Practitioner Type: Progress Notes Filed: 07/03/2025 12:15 Note Text: URGENT CARE [facility] Subjective Mariaa Waldron is a 65 year old female. Patient presents with: Flu Like Symptoms: Cough, chest congestion, bodyaches, fever x3 days HPI Nontoxic-appearing female presents urgent care chief complaint flulike symptoms. Duration of symptoms 3 days. Associated symptoms body aches chills fever cough chest congestion loss of taste and smell loose stools 1 episode of vomiting. No vomiting today. No blood. States does have some chest discomfort with coughing only. Denies any significant chest pain shortness of breath or hemoptysis. No fevers this morning. Fever 102.5 yesterday. Unknown sick contacts. Past medical history prescription medications allergies reviewed Review of Systems Constitutional: Positive for chills, fatigue and fever. Negative for diaphoresis. HENT: Positive for sneezing and sore throat. Negative for congestion, drooling, ear discharge, ear pain, rhinorrhea, sinus pressure, sinus pain and trouble swallowing. Eyes: Negative for pain, discharge, redness, itching and visual disturbance. Respiratory: Positive for cough. Negative for chest tightness, shortness of breath and wheezing. Cardiovascular: Negative for chest pain. Gastrointestinal: Positive for diarrhea and vomiting. Negative for abdominal distention, abdominal pain, blood in stool, constipation and nausea. Genitourinary: Negative for difficulty urinating and dysuria. Musculoskeletal: Negative for arthralgias, joint swelling, neck pain and neck stiffness. Skin: Negative for rash. Neurological: Positive for headaches. Negative for dizziness, weakness and numbness. Objective BP 117/84 Pulse 82 Temp 37.1 ?C (98.7 ?F) Resp 20 Wt 115.8 kg (255 lb 4.7 oz) SpO2 98% BMI 42.48 kg/m? Physical Exam Constitutional: Appearance: Normal appearance. HENT: Head: Normocephalic. Jaw: No trismus, tenderness, swelling or pain on movement. Nose: Rhinorrhea present. No congestion. Mouth/Throat: Mouth: Mucous membranes are moist. Pharynx: Oropharynx is clear. Uvula midline. No oropharyngeal exudate or posterior oropharyngeal erythema. Eyes: Conjunctiva/sclera: Conjunctivae normal. Cardiovascular: Rate and Rhythm: Normal rate. Pulmonary: Effort: Pulmonary effort is normal. Breath sounds: Normal breath sounds. No wheezing, rhonchi or rales. Musculoskeletal: General: Normal range of motion. Cervical back: Normal range of motion and neck supple. No edema, erythema or rigidity. No pain with movement. Normal range of motion. Lymphadenopathy: Cervical: No cervical adenopathy. Skin: General: Skin is warm. Findings: No rash. Neurological: General: No focal deficit present. Mental Status: She is alert and oriented to person, place, and time. Mental status is at baseline. {ASSESSMENT/PLAN: 1. Acute cough - ICD9: 786.2, ICD10: R05.1 (primary diagnosis) - XR CHEST 2V FRONTAL/LAT 2. Viral illness - ICD9: 079.99, ICD10: B34.9 No acute findings noted on imaging. Treat as viral etiology. No evidence of bacterial infection. We discussed COVID testing. Declined at this time. Afebrile today. Red flags for prompt ER evaluation discussed. Patient was educated on supportive therapies. Patient will follow up with primary care provider as needed. Patient was instructed to immediately proceed to emergency room for any new, worsening, or symptoms lasting longer than anticipated. The patient's clinical presentation is otherwise unremarkable at this time. Based on exam and clinical finding, the patient is stable for discharge. Plan of care was discussed with patient. Patient verbalizes understanding and agrees to plan of care. This note was generated using Trigence software. It may contain errors in wording, punctuation, or spelling. Tyrel Quiroga APRN.CNP History and Record Review Clinical information obtained from an independent historian. History obtained from or confirmed by: parent. External record(s) reviewed: prior outpatient record. Disposition The patient was discharged. OTC Medications were advised: Procedures CNOV Observed: 07/03/2025 10:00 AM Status: COMPLETED Source: [facility] Office Visit (WOCARTER) MARIAA WALDRON ([id number]) 1960 F Date Time Provider Department 07/03/25 10:00 AM TYREL QUIROGA During your visit today, we recorded the following information about you: Temperature Pulse Respiration Blood pressure 98.7 degrees 82/minute 20/minute 117/84 Weight 115.8 kg Tyrel Quiroga APRN.CNP 07/03/2025 12:15 PM Signed [facility] Subjective Mariaajovana Waldron is a 65 year old female. Patient presents with: Flu Like Symptoms: Cough, chest congestion, bodyaches, fever x3 days HPI Nontoxic-appearing female presents urgent care chief complaint flulike symptoms. Duration of symptoms 3 days. Associated symptoms body aches chills fever cough chest congestion loss of taste and smell loose stools 1 episode of vomiting. No vomiting today. No blood. States does have some chest discomfort with coughing only. Denies any significant chest pain shortness of breath or hemoptysis. No fevers this morning. Fever 102.5 yesterday. Unknown sick contacts. Past medical history prescription medications allergies reviewed Review of Systems Constitutional: Positive for chills, fatigue and fever. Negative for diaphoresis. HENT: Positive for sneezing and sore throat. Negative for congestion, drooling, ear discharge, ear pain, rhinorrhea, sinus pressure, sinus pain and trouble swallowing. Eyes: Negative for pain, discharge, redness, itching and visual disturbance. Respiratory: Positive for cough. Negative for chest tightness, shortness of breath and wheezing. Cardiovascular: Negative for chest pain. Gastrointestinal: Positive for diarrhea and vomiting. Negative for abdominal distention, abdominal pain, blood in stool, constipation and nausea. Genitourinary: Negative for difficulty urinating and dysuria. Musculoskeletal: Negative for arthralgias, joint swelling, neck pain and neck stiffness. Skin: Negative for rash. Neurological: Positive for headaches. Negative for dizziness, weakness and numbness. Objective BP 117/84 Pulse 82 Temp 37.1 ?C (98.7 ?F) Resp 20 Wt 115.8 kg (255 lb 4.7 oz) SpO2 98% BMI 42.48 kg/m? Physical Exam Constitutional: Appearance: Normal appearance. HENT: Head: Normocephalic. Jaw: No trismus, tenderness, swelling or pain on movement. Nose: Rhinorrhea present. No congestion. Mouth/Throat: Mouth: Mucous membranes are moist. Pharynx: Oropharynx is clear. Uvula midline. No oropharyngeal exudate or posterior oropharyngeal erythema. Eyes: Conjunctiva/sclera: Conjunctivae normal. Cardiovascular: Rate and Rhythm: Normal rate. Pulmonary: Effort: Pulmonary effort is normal. Breath sounds: Normal breath sounds. No wheezing, rhonchi or rales. Musculoskeletal: General: Normal range of motion. Cervical back: Normal range of motion and neck supple. No edema, erythema or rigidity. No pain with movement. Normal range of motion. Lymphadenopathy: Cervical: No cervical adenopathy. Skin: General: Skin is warm. Findings: No rash. Neurological: General: No focal deficit present. Mental Status: She is alert and oriented to person, place, and time. Mental status is at baseline. {ASSESSMENT/PLAN: 1. Acute cough - ICD9: 786.2, ICD10: R05.1 (primary diagnosis) - XR CHEST 2V FRONTAL/LAT 2. Viral illness - ICD9: 079.99, ICD10: B34.9 No acute findings noted on imaging. Treat as viral etiology. No evidence of bacterial infection. We discussed COVID testing. Declined at this time. Afebrile today. Red flags for prompt ER evaluation discussed. Patient was educated on supportive therapies. Patient will follow up with primary care provider as needed. Patient was instructed to immediately proceed to emergency room for any new, worsening, or symptoms lasting longer than anticipated. The patient's clinical presentation is otherwise unremarkable at this time. Based on exam and clinical finding, the patient is stable for discharge. Plan of care was discussed with patient. Patient verbalizes understanding and agrees to plan of care. This note was generated using Trigence software. It may contain errors in wording, punctuation, or spelling. Tyrel Quiroga APRN.[facility] History and Record Review Clinical information obtained from an independent historian. History obtained from or confirmed by: parent. External record(s) reviewed: prior outpatient record. Disposition The patient was discharged. OTC Medications were advised: Procedures Allergies As of Date: 07/03/2025 Noted Allergy Reaction CRANBERRY 04/19/2021 4 - Hives 7 - Swelling PREDNISONE 01/17/2012 14 - Other: See Comments Comments: increases blood pressure PENICILLINS 07/03/2025 14 - Other: See Comments Date Reviewed: 07/03/2025 Reviewed by: Tyrel Quiroga APRN.CNP - Fully Assessed Reason for Visit: Flu Like Symptoms [267] Cmt: Cough, chest congestion, bodyaches, fever x3 days Primary Visit Diagnosis:Acute cough [R05.1] Other Visit Diagnosis:Viral illness [B34.9] Order(s):XR CHEST 2V FRONTAL/LAT [[id number]] Order #: [id number] FUTURE benzonatate (TESSALON PERLE) 100 mg capsuleTake 1 capsule by mouth three times a day as needed for cough for up to 7 days.Disp: 21 capsuleRfl: 0 guaiFENesin (MUCINEX) 600 mg 12 hr tabletTake 1 tablet by mouth two times a day as needed for cold/allergy symptoms (cough) for up to 7 days.Disp: 14 tabletRfl: 0 doxycycline (VIBRA-TABS) 100 mg tabletTake 1 tablet by mouth two times a day for 7 days.Disp: 14 tabletRfl: 0 Prescriptions as of 07/03/2025 - buPROPion XL (WELLBUTRIN XL) 150 mg 24 hr tablet Take 1 tablet by mouth once daily. - escitalopram oxalate (LEXAPRO) 10 mg tablet Take 10 mg by mouth once daily. - metFORMIN (GLUCOPHAGE) 500 mg tablet Take by mouth daily with breakfast. - lisinopril (ZESTRIL) 10 mg tablet Take 10 mg by mouth once daily. - AMBIEN 10 mg Take by mouth. - benzonatate (TESSALON PERLE) 100 mg capsule Take 1 capsule by mouth three times a day as needed for cough for up to 7 days. - guaiFENesin (MUCINEX) 600 mg 12 hr tablet Take 1 tablet by mouth two times a day as needed for cold/allergy symptoms (cough) for up to 7 days. - doxycycline (VIBRA-TABS) 100 mg tablet Take 1 tablet by mouth two times a day for 7 days. - Bisacodyl (DULCOLAX) 5 mg tab Use as directed for Miralax / Gatorade Bowel Prep Kit - [place]-3 Fatty Acids-Vitamin E 1,000 mg cap Take 1 capsule by mouth once daily. - LACTOBAC CMB #3/FOS/PANTETHINE (PROBIOTIC AND ACIDOPHILUS ORAL) Take 1 capsule by mouth. - ZOLPIDEM 6.25 mg CR tablet Take 12.5 mg by mouth as needed. - Cetirizine 10 mg cap Take 1 tablet by mouth. - lisinopril 20 mg tablet Take 20 mg by mouth once daily. - Cholecalciferol, Vitamin D3, 3,000 unit ORAL Tab Take by mouth. - ubidecarenone Q-10 (COENZYME Q-10) 10 mg cap Take by mouth once daily. - CHOLESTYRAMINE-SUCROSE 4 GRAM PACKET Take by mouth as needed. - atenolol 25 mg ORAL Tab Take one(1) tablet daily. Problem List As Of Date 07/03/2025 Noted Resolved DIARRHEA NOS [R19.7] EXT HEMORRHOID W/O COMPL [K64.4] 07/29/2007 INT HEMORRHOID W/O COMPL [K64.8] 07/29/2007 Abdominal Pain, RUQ (Right Upper Quadrant) [R10* Rectocele [N81.6] 09/15/2013 Prolapse of vaginal vault after hysterectomy [N*07/04/2014 Female stress incontinence [N39.3] 07/04/2014 Vaginal prolapse [N81.10] 07/04/2014 Colon cancer screening [Z12.11] 04/19/2021 04/19/2021 A-fib (HCC) [I48.91] 07/03/2025 Diabetes mellitus (HCC) [E11.9] 12/11/2023 Essential hypertension [I10] 12/11/2023 Pure hypercholesterolemia [E78.00] 12/11/2023 Prescriptions ordered this encounter Disp Refills Start End BENZONATATE 100 MG CAPSULE 21 c* 0 07/03/2025 07/10/2025 Route: PO Sig: Take 1 capsule by mouth three times a day as needed for cough for up to 7 days. GUAIFENESIN ER 600 MG TABLET, EXTEND* 14 t* 0 07/03/2025 07/10/2025 Route: PO Sig: Take 1 tablet by mouth two times a day as needed for cold/allergy symptoms (cough) for up to 7 days. DOXYCYCLINE HYCLATE 100 MG TABLET 14 t* 0 07/03/2025 07/10/2025 Route: PO Sig: Take 1 tablet by mouth two times a day for 7 days. Medications Discontinued During This Encounter Prescriptions - phenazopyridine (PYRIDIUM, GERIDIUM) 200 mg tablet (Discontinued) Reported on 02/15/2019 - guaiFENesin (MUCINEX) 600 mg 12 hr tablet (Discontinued) Take 2 tablets by mouth twice daily. - albuterol HFA (PROVENTIL HFA, VENTOLIN HFA) 90 mcg/actuation inhaler (Discontinued) Inhale 2 Puffs as instructed every 4 hours as needed. - benzonatate (TESSALON PERLE) 100 mg capsule (Discontinued) Take 1 capsule by mouth three times daily as needed. - fluticasone (FLOVENT HFA) 110 mcg/actuation inhaler (Discontinued) Inhale 2 Puffs as instructed twice daily. - polyethylene glycol 3350 (MIRALAX, GLYCOLAX) 17 gram/dose powder (Discontinued) Use as directed for Miralax / Gatorade Bowel Prep Kit Level of Service: OFFICE/OUTPATIENT ESTABLISHED MOD MDM 30 MIN [24396] Encounter Status:Closed by TYREL QUIROGA on 07/03/25 ALLERGIES DATE TYPE / CODE NAME / CODE REACTION SEVERITY SOURCE 07/03/2025 Drug Class/986580218(SN OMED CT) PENICILLINS OTHER: SEE C [facility] 04/19/2021 DRUG INGREDI/121816067( SNOMED CT) CRANBERRY HIVES High [facility] 01/17/2012 DRUG INGREDI/[id number]( SNOMED CT) PREDNISONE OTHER: SEE C [facility] ENCOUNTERS ADMIT/DISCHARGE ACCOUNT NUMBER ADMITTING ENCOUNTER CLASS LOC ATION SOURCE 07/03/2025 [id number] Ambulatory [facility] HospitalBuild ing:HANANE [facility] 07/03/2025/ [id number] Ambulatory [facility] HospitalBuild ing:AMELIA [facility] PAYERS ENCOUNTER GUARANTOR PAYER SUBSCRIBER SOURCE 07/03/2025 Primary Insurance:[employer] MEDICARE OPoly Number: [id number] Date:[id number] Name:Dot BRENNAN: [id number] GIRMA CISNEROS [place], [place] [id number] [place] [address] 07/03/2025 Primary Insurance:[employer] MEDICARE PPOPolicy Number: [id number] Date:7515-82-21Iuwq Name:Dot BRENNAN: [id number] [place] [address] [facility]
--- OUTSIDE RECORDS SUMMARY | 2025-07-03 10:29 | XMS RPT_ITS ---
Author Name Auto Generated Organization OHIP Care Team Providers Care Occ Therapy Asst Name Role Phone TYREL QUIROGA Referring Unavailable BATOOL MCCORMACK Primary Care Unavailab BATOOL Dwyer Primary Care Unavailab TYREL Michael Attending Unavailable PROBLEMS DATE TYPE CONDITION / CODE ATTENDING STATUS [facility] 07/03/2025 Active Acute cough / R05.1(ICD-10) NA Active [facility] 07/03/2025 Active Viral illness / B34.9(ICD-10) TYREL QUIROGA Active [facility] PROCEDURES No Procedure Records Found RESULTS XR CHEST 2V FRONTAL/LAT Observed: 2024 10:46 AM Status: F Source: [facility] * * *Final Report* * * [...] overlying the left lower lung. Consider follow-up. Greens Picker: [email or web address] Transcribe Date/Time: Jul 03 2025 12:06P Dictated by : QIAN HENDERSON MD This examination was interpreted and the report reviewed and electronically signed by: QIAN HENDERSON MD on Jul 03 2025 12:07PM EST [id number] PROGRESS Observed: 07/03/2025 10:40 AM Status: COMPLETED Source: [facility] HNO ID: [id number] Author: GEORGETTE PINEDA Tech Service: ? Author Type: Wet Wheeler Type: Progress Notes Filed: 07/03/2025 10:46 Note [...] PATIENT PRESENTS WITH AN IMPLANTABLE OR ATTACHED PLANT ASSOCIATE: No RADIOLOGY DEPARTMENT: General X-ray: Exam(s) Completed: Chest X-Ray PERIPHERAL IV DATA: Not applicable SIGNED BY: Nilda Reddy July 03, 2025 10:46 AM PROGRESS Observed: 07/03/2025 10:29 AM Status: COMPLETED Source: [facility] HNO ID: [id number] Author: YTREL QUIROGA APRN.[facility] Service: ? Author Type: Nurse Practitioner [...] of care. This note was generated using [employer] software. It may contain errors in wording, punctuation, or spelling. Tyrel Quiroga APRN.CNP History and Record Review Clinical information obtained from an independent historian. History obtained from or confirmed by: parent. External record(s) reviewed: prior outpatient record. Disposition The patient was discharged. OTC Medications were advised: Procedures CNOV Observed: 07/03/2025 10:00 AM Status: COMPLETED Source: [facility] Office Visit (WOCARTRE) MARIAA WALDRON ([id number]) 1960 F Date Time Provider Department 07/03/25 [...] of care. This note was generated using [employer] software. It may contain errors in wording, [...] Diagnosis:Viral illness [B34.9] Order(s):XR CHEST 2V FRONTAL/LAT [[id number]] Order #: [id number] FUTURE benzonatate (TESSALON PERLE) 100 mg capsuleTake [...] Miralax / Gatorade Bowel Prep Kit - [place]-3 Fatty Acids-Vitamin E 1,000 mg cap Take [...] Service: OFFICE/OUTPATIENT ESTABLISHED MOD MDM 30 MIN [32908] Encounter Status:Closed by TYREL QUIROGA on 07/03/25 ALLERGIES DATE TYPE / CODE NAME / CODE REACTION SEVERITY SOURCE 07/03/2025 Drug Class/748689896(SN OMED CT) PENICILLINS OTHER: SEE C [facility] 04/19/2021 DRUG INGREDI/331235584( SNOMED CT) CRANBERRY HIVES High [facility] 01/17/2012 DRUG INGREDI/[id number]( SNOMED CT) PREDNISONE OTHER: SEE C [facility] ENCOUNTERS ADMIT/DISCHARGE ACCOUNT NUMBER ADMITTING ENCOUNTER CLASS LOC ATION SOURCE 07/03/2025 [id number] Ambulatory [facility] HospitalBuild ing:HANANE [facility] 07/03/2025/ [id number] Ambulatory [facility] HospitalBuild ing:AMELIA [facility] PAYERS ENCOUNTER GUARANTOR PAYER SUBSCRIBER SOURCE 07/03/2025 Primary Insurance:[employer] MEDICARE OPoly Number: [id number] Date:2301-59-46Uwpr Name:Dot BRENNAN: [id number] GIRMA CISNEROS [place], [place] [id number] [place] [address] 07/03/2025 Primary Insurance:[employer] MEDICARE PPOPolicy Number: [id number] Date:[id number] Name:Dot BRENNAN: [id number] [place] [address] [facility]
[2025-07-26 12:49] LABS: Ammonia 23.9 umol/L (11-51)
[2025-07-26 13:09] LABS: AST(SGOT) 64 U/L (<=31); Alanine Aminotransfer ALT/SGPT 116 U/L (<=34); Albumin, Serum 4.2 g/dL (3.4-4.8); Alkaline Phosphatase 94 U/L (35-104); Anion Gap 12 (5-15); BUN 14 mg/dL (4-19); BUN/Creat Ratio 28.8 RATIO (10-20); Calcium,Total 9.1 mg/dL (7.6-11.0); Carbon Dioxide 22.7 mmol/L (21.0-32.0); Chloride 105 mmol/L (98-108); Globulin 2.6 g/dL (2.2-4.2); Glucose 122 mg/dL (70-99); Potassium 4.0 mmol/L (3.3-5.1); Vitamin B12 696 pg/mL (180-914)
[2025-07-26 15:41] LABS: Hematocrit 40.8 % (37-47); Hemoglobin 13.4 g/dL (12.0-15.0); Mean Corp Hgb Conc 32.8 g/dL (32-36); Mean Corpuscular Volume 90.5 fL (81-99); Mean Platelet Vol. 13.2 fl (6.2-12.0); Platelet Count 163 K/mm3 (150-450); RBC Distribution Width CV 13.7 % (11.6-14.6); RBC Distribution Width SD 45.8 fl (35.1-43.9); Red Blood Count 4.51 M/mm3 (4.2-5.4); White Blood Count 6.1 K/mm3 (4.4-11.0)
[2025-07-28 13:08] LABS: Vitamin D 1,25-Dihydroxy 59.6 pg/mL (24.8-81.5)
[2025-08-01 20:08] LABS: Folate, Hemolysate Test 413.0 ng/mL (Not Estab.); Folate, RBC (Hct) Test 41.1 % (34.0-46.6); Folates, RBC Test 1005 ng/mL (>498); VITAMIN B6 4.4 ug/L (3.4-65.2); Vitamin B1, Thiamine 121.1 nmol/L (66.5-200.0)
== END | disposition home or self-care (01) ==
LOC: MTLAB 10:41
PROVIDERS: PCP Internal Medicine; Referring Provider Psychiatry & Neurology Neurology; Visit Provider Psychiatry & Neurology Neurology
DX: R41.3 Other amnesia (principal); R53.83 Other fatigue; R79.89 Other specified abnormal findings of blood chemistry; G62.9 Polyneuropathy, unspecified; I10 Essential (primary) hypertension
CPT/HCPCS: 36415; 80053; 82140; 82607; 82652; 82747; 83883; 84207; 84425; 84443; 85014; 85027

== ENCOUNTER → 2025-08-10 | Outpatient (CLI) | payer MEDICARE, SELFPAY ==
--- NOTE | 2025-08-10 | MRI_ITS ---
PROCEDURE: SPINE CERVICAL (ROUTINE) 08/10/2025 REASON FOR EXAM: NECK PAIN; HEAD PARESTHESIAS TECHNIQUE: Procedure Code: MRISPC Modality: MR Procedure: SPINE CERVICAL (ROUTINE) Multiplanar and multisequence images were obtained without IV contrast administration. COMPARISON: None FINDINGS: There is loss of the lordosis. There is Modic fibrotic type endplate change at C5-6. Vertebral body height is maintained. There is grade 1 spondylolisthesis at T2-3, 0.38 cm. The cervical alignment is maintained. Vertebral body marrow signal is normal. The intervertebral disc signal is normal. C2-C3: There is no significant disc protrusion. There is no lateral recess or foraminal stenosis. There is no central canal stenosis. C3-C4: There is no significant disc protrusion. There is no lateral recess or foraminal stenosis. There is no central canal stenosis. C4-C5: There is mild central disc protrusion. There is no lateral recess or foraminal stenosis. There is no central canal stenosis. C5-C6: There is mild central and moderate right paracentral disc and osteophyte protrusion. There is moderate right lateral recess stenosis. There is mild bilateral foraminal secondary to disc and osteophyte protrusion. There is no central canal stenosis. C6-C7: There is mild central and right paracentral disc and osteophyte protrusion. There is mild right lateral recess effacement. There is mild bilateral foraminal narrowing secondary to disc protrusion and facet hypertrophy. There is no central canal stenosis. There is no central canal stenosis. C7-T1: There is no significant disc protrusion. There is no lateral recess or foraminal stenosis. There is no central canal stenosis. The visualized cord shows normal signal characteristics. Adjacent soft tissues are grossly unremarkable. MRI/Spine Cervical (Routine) IMPRESSION: There is loss of the lordosis. There is grade 1 spondylolisthesis at T2-3, 0.38 cm. There is no central canal stenosis, with mild lateral recess and foraminal narr owing. Reading [facility]
--- NOTE | 2025-08-10 12:40 | MRI_ITS ---
PROCEDURE: SPINE LUMBAR (ROUTINE) 08/10/2025 REASON FOR EXAM: CHRONIC LOW BACK PAIN TECHNIQUE: Procedure Code: MRISPL Modality: MR Procedure: SPINE LUMBAR (ROUTINE) COMPARISON: None FINDINGS: Alignment: Preserved. No william or retrolisthesis. Vertebrae: Normal marrow signal. Vertebral hemangioma at L2. No compression deformity. Conus Medullaris: Spinal cord is normal and ends at L1-L2. Retroperitoneal soft tissues are normal. No aneurysm. Bilateral renal cysts. Imaged kidneys aorta otherwise negative. The remainder of the exam negative. T11-L1: Mild disc desiccation. No central or foraminal stenosis. L1-2: Mild disc desiccation. No central or foraminal stenosis. Mild facet disease. L2-3: Mild disc desiccation. Mild bulge. No facet arthropathy or ligamentum flavum hypertrophy. L3-4: Mild disc bulge. Facet arthropathy and ligamentum flavum hypertrophy. No central or foraminal stenosis. L4-5: Mild disc desiccation and loss of T2 signal. No protrusion or herniation. Moderate facet arthropathy and ligamentum flavum redundancy. Mild central stenosis. Diffuse disc desiccation and loss of T2 signal within the disc space. Modic type 2 changes. Diffuse bulge. Facet arthropathy and ligamentum flavum hypertrophy. No central or foraminal stenosis. MRI/Spine Lumbar (Routine) IMPRESSION: Mild multilevel degenerative disc disease as stated above without significant c entral or foraminal stenosis. Reading Location: [facility]
== END | disposition home or self-care (01) ==
PROVIDERS: PCP Internal Medicine; Referring Provider Psychiatry & Neurology Neurology; Visit Provider Psychiatry & Neurology Neurology
DX: M54.50 Low back pain, unspecified (principal); M54.2 Cervicalgia
CPT/HCPCS: 72141; 72148

== ENCOUNTER → 2025-08-11 | Outpatient (CLI) | payer MEDICARE, SELFPAY | END | disposition home or self-care (01) | LOC: SL 19:58 | PROVIDERS: PCP Internal Medicine; Referring Provider Nurse Practitioner Acute Care; Visit Provider Nurse Practitioner Acute Care | DX: G47.33 Obstructive sleep apnea (adult) (pediatric) (principal) | CPT/HCPCS: 95810 ==

== ENCOUNTER → 2025-08-19 | Outpatient (CLI) | payer MEDICARE, SELFPAY ==
[2025-08-19 13:37] LABS: Hematocrit 40.6 % (37-47); Hemoglobin 13.3 g/dL (12.0-15.0); Immature Granulocytes Count 0.030 X10^3/uL (0.0-0.0); Mean Corp Hgb Conc 32.8 g/dL (32-36); Mean Corpuscular Volume 90.0 fL (81-99); Mean Platelet Vol. 12.4 fl (6.2-12.0); NRBC Flagged by Analyzer 0 % (0-5); Platelet Count 153 K/mm3 (150-450); RBC Distribution Width CV 13.7 % (11.6-14.6); RBC Distribution Width SD 45.6 fl (35.1-43.9); Red Blood Count 4.51 M/mm3 (4.2-5.4); White Blood Count 6.5 K/mm3 (4.4-11.0)
[2025-08-19 13:45] LABS: Prothrombin Time (Protime)PT. 13.8 SECONDS (11.7-14.9)
[2025-08-19 13:46] LABS: Partial Thromboplast Time 25.8 Seconds (24.1-36.2)
[2025-08-19 14:13] LABS: AST(SGOT) 102 U/L (<=31); Alanine Aminotransfer ALT/SGPT 155 U/L (<=34); Albumin, Serum 4.1 g/dL (3.4-4.8); Alkaline Phosphatase 96 U/L (35-104); Anion Gap 8 (5-15); BUN 15 mg/dL (4-19); BUN/Creat Ratio 28.4 RATIO (10-20); Calcium,Total 9.2 mg/dL (7.6-11.0); Carbon Dioxide 25.7 mmol/L (21.0-32.0); Chloride 104 mmol/L (98-108); Globulin 2.6 g/dL (2.2-4.2); Glucose 152 mg/dL (70-99); Potassium 4.3 mmol/L (3.3-5.1)
== END | disposition home or self-care (01) ==
LOC: LAB 12:49
PROVIDERS: PCP Internal Medicine; Referring Provider Orthopaedic Surgery; Visit Provider Orthopaedic Surgery
DX: M16.12 Unilateral primary osteoarthritis, left hip (principal); E11.9 Type 2 diabetes mellitus without complications; K76.9 Liver disease, unspecified
CPT/HCPCS: 36415; 80053; 83036; 85025; 85610; 85730

== ENCOUNTER → 2025-08-23 | Outpatient (CLI) | payer MEDICARE, SELFPAY ==
[2025-08-23 15:09] LABS: CRP 13.20 mg/L (0.0-3.0)
== END | disposition home or self-care (01) ==
LOC: LAB 13:22
PROVIDERS: PCP Internal Medicine; Referring Provider Orthopaedic Surgery; Visit Provider Orthopaedic Surgery
DX: Z96.641 Presence of right artificial hip joint (principal)
CPT/HCPCS: 36415; 85652; 86140

== ENCOUNTER → 2025-08-30 | Outpatient (CLI) | payer MEDICARE, SELFPAY ==
[2025-08-30 17:09] LABS: AST(SGOT) 118 U/L (<=31); Alanine Aminotransfer ALT/SGPT 150 U/L (<=34); Albumin, Serum 4.2 g/dL (3.4-4.8); Alkaline Phosphatase 99 U/L (35-104); Bilirubin, Direct 0.15 mg/dL (0.00-0.30); Globulin 2.5 g/dL (2.2-4.2); Vitamin B12 952 pg/mL (180-914)
[2025-09-03 17:08] LABS: Copper, Serum or Plasma 108 ug/dL (80-158); PROEL- A/G Ratio 1.2 (0.7-1.7); PROEL- Albumin 3.5 g/dL (2.9-4.4); PROEL- Alpha-1 Globulin 0.3 g/dL (0.0-0.4); PROEL- Alpha-2 Globulin 0.9 g/dL (0.4-1.0); PROEL- Beta Globulin 1.1 g/dL (0.7-1.3); PROEL- Gamma Globulin 0.7 g/dL (0.4-1.8); PROEL- Globulin, Total 3.0 g/dL (2.2-3.9); PROEL- TOTAL PROTEIN 6.5 g/dL (6.0-8.5); PROEL-M-Spike Not Observed g/dL (Not Observed)
== END | disposition home or self-care (01) ==
PROVIDERS: PCP Internal Medicine
DX: Z03.89 Encounter for observation for other suspected diseases and conditions ruled out (principal)
CPT/HCPCS: 36415; 80076; 82525; 82607; 83921; 84165; 84439; 84443; 86038; 86617

== ENCOUNTER → 2025-09-19 | Outpatient (CLI) | payer MEDICARE, SELFPAY ==
--- NOTE | 2025-09-19 09:58 | US_ITS ---
PROCEDURE: ABD LIMITED W/ ELASTOGRAPHY REASON FOR EXAM: FATTY LIVER COMPARISON: None. TECHNIQUE: Procedure Code: [id number] Modality: US Procedure: ABD LIMITED W/ ELASTOGRAPHY Right upper quadrant abdominal ultrasound. [facility] ElastQ Imaging shear wave elastography for non-invasive assessment of liver tissue stiffness. [facility] EPIQ Elite. FINDINGS: LIVER: Size: Enlarged (hepatomegaly) Length: 17.2 cm Echotexture: Diffusely echogenic suggesting fatty infiltration Contour: Normal Lesions: There is a 1.2 cm x 0.9 cm x 0.7 cm cyst in the left lobe of the liver. Elastography: EQI Med: 10.6 kPa EQI Med Anam: 1.87 m/s IQR/Med: 16.4 %* GALLBLADDER: Surgically absent. COMMON BILE DUCT: Normal measuring 5.9 mm . PANCREAS: Normal Visualized portions of the right kidney are unremarkable except for a 9 mm x 9 mm x 8 mm cyst.. No right upper quadrant ascites. US/ABD Limited w/ Elastography IMPRESSION: MODERATE TO SEVERE HEPATIC FIBROSIS Hepatomegaly. Fatty infiltration of the liver. Reference Values: SRU <1.37 m/s (5.7kPa): No to mild fibrosis 1.37 m/s - 2.2 m/s: Moderate to severe fibrosis >2.2 m/s (15kPa): Significant fibrosis / cirrhosis METAVIR Score F2 or higher: 1.34 m/s (5.7kPa) F3 or higher: 1.55 m/s (7.3kPa) F4: 1.80 m/s (10kPa) * If the IQR/Med is >30%, the variance in the measurements is a large and the a ccuracy of the measurement may be in question. Reading Location: [place] [id number]
== END | disposition home or self-care (01) ==
LOC: US 09:56
PROVIDERS: PCP Internal Medicine; Referring Provider Student in an Organized Health Care Education/Training Program; Visit Provider Student in an Organized Health Care Education/Training Program
DX: K76.0 Fatty (change of) liver, not elsewhere classified (principal); R74.8 Abnormal levels of other serum enzymes
CPT/HCPCS: 76705; 76981

== ENCOUNTER 2025-10-10 11:32 | Emergency (ER) | payer MEDICARE, SELFPAY ==
[2025-10-10 11:33] VITALS: BP 140/89; PULSE 70; RESP 18; TEMP 36; O2SAT 97; BMI 42.1
--- NOTE | 2025-10-10 12:08 | CT_ITS ---
PROCEDURE: ABDOMEN/PELVIS WITHOUT CONT 10/10/2025 REASON FOR EXAM: RIGHT FLANK PAIN Foul uterine order. TECHNIQUE: Procedure Code: CTABDPEL Modality: CT Procedure: ABDOMEN/PELVIS WITHOUT CONT Noncontrast technique limits evaluation of the abdominal and pelvic viscera. Coronal and Sagittal reconstruction series were provided. One or more dose reduction techniques were used (e.g., Automated exposure control, adjustment of the mA and/or kV according to patient size, use of iterative reconstruction technique). RADIATION DOSE SUMMARY: CTDlvol: 31.05 mGy DLP: 1574.71 mGycm COMPARISON: Prior study dated July 18, 2022. FINDINGS: Lung bases: Lung bases are clear. Liver: Diffuse fatty infiltration. Gallbladder: Surgically absent. Spleen: Splenomegaly. Pancreas: Normal size. No surrounding inflammation. Adrenals: Unremarkable Kidneys: There is a 5 mm calculus in the mid portion of the left ureter causing a minimal degree of left hydronephrosis. Bladder: Unremarkable Reproductive Organs: Prior hysterectomy. Adnexal regions are unremarkable. Bowel: Scattered sigmoid diverticula. Appendix: The appendix is not identified. There is no inflammatory process identified in the right lower quadrant to suggest appendicitis. Lymph nodes: Unremarkable. Vasculature: Mild diffuse atherosclerotic calcifications are noted. Peritoneum / Retroperitoneum: Unremarkable Bones: Prior right total hip replacement. Minimal anterior listhesis of L5 on S1. CT/Abdomen/Pelvis without Cont IMPRESSION: 5 mm calculus in the midportion of the left ureter causing a minimal degree of left hydronephrosis. Mild splenomegaly. Fatty infiltration of the liver. Reading Location: [facility]
--- NOTE | 2025-10-10 12:13 | ED.VIS.FEGU ---
HPI HPI - Female History of Present Illness Chief Complaint: Flank Pain Narrative Narrative: Chief complaint and HPI: 65-year-old female with past medical history of fatty liver, DM 2, HLD, HTN presents for evaluation of right flank pain. Triage note states left flank pain but this is incorrect. Patient states symptoms have been ongoing for 1 month. She saw her PCP who felt that this was muscular in nature in which she was given muscle relaxers. Patient states her symptoms have not improved. She endorses some foul-smelling urine but denies any dysuria. She denies any fever, chills, shortness of breath, chest pain, nausea, vomiting, diarrhea. Denies any injury or trauma. No history of kidney stones. Review of systems: See HPI Medications: As listed on the chart Allergies: As listed on the chart PFSH: Per chart Vital signs: As listed on the chart. Reviewed. Physical exam: Gen: A&O x3, NAD Head: Normocephalic, atraumatic Eyes: No sclera icterus, conjunctiva clear ENT: Moist mucous membranes CV: RRR, no murmurs, no peripheral edema Resp: Lungs CTA BL, no w/r/c GI: Abd soft, non-distended, non-tender, no r/r/g : No CVA tenderness Musc: Full ROM, no deformity, no midline spinal tenderness, no bony step-off, patient mildly tender to palpation in the lower thoracic/upper lumbar paraspinal musculature on the right-recreates her pain Skin: Warm, dry Psych: Cooperative, appropriate mood and affect [facility] Medical History (Updated 10/10/25 @ 13:04 by Roula Moss) Diabetes Former smoker Hypertension Elevated C-reactive protein (CRP) Elevated liver enzymes Pre-operative clearance History of left heart catheterization (LHC) (~11/12/22) Type 2 diabetes mellitus Lipoma Vitamin D deficiency RLS (restless legs syndrome) BPV (benign positional vertigo) Allergic rhinitis Back pain Muscle pain Fibromyalgia Fatty liver Atypical chest pain Splenomegaly Abdominal mass, LUQ (left upper quadrant) Fatigue Lung nodule Abnormal liver scan Pulmonary nodules/lesions, multiple (01/2021) Hyperlipidemia Morbid obesity Essential (primary) hypertension Hemorrhoids Elevated LFTs PVCs (premature ventricular contractions) Diabetes mellitus type II, controlled Tachycardia Dyspnea Palpitations Anxiety and depression GERD (gastroesophageal reflux disease) Home Medications ?Medication ?Instructions ?Recorded ?Last Taken ?Type cetirizine 10 mg tablet 10 mg PO DAILY PRN Allergy Symptoms 03/29/21 Unknown History lisinopril 10 mg tablet 10 mg PO DAILY 04/04/21 10/09/25 History cholecalciferol (vitamin D3) 125 125 mcg PO DAILY 10/04/22 10/09/25 History mcg (5,000 unit) tablet lactobacillus combination no.9 4 4,000 mmu cells PO DAILY 10/04/22 10/09/25 History billion cell capsule (Adult 50 Plus Probiotic) cholestyramine (with sugar) 4 gram 1 ea PO DAILY PRN . 11/20/23 Unknown History powder for susp in a packet coenzyme Q10 100 mg capsule 100 mg PO DAILY 11/20/23 10/09/25 History (CoQ-10) metformin 500 mg tablet 500 mg PO BID 90 days #180 tabs 12/01/23 10/09/25 Rx zolpidem 10 mg tablet 10 mg PO QHS 07/26/25 10/09/25 History ropinirole 1 mg tablet 1 mg PO QHS #30 tabs 08/25/25 10/09/25 Rx escitalopram oxalate 10 mg tablet 10 mg PO DAILY 09/05/25 10/09/25 History atenolol 50 mg tablet 50 mg PO BID 10/10/25 10/09/25 History oxycodone 5 mg tablet 5 mg PO Q6H PRN PRN pain 10/10/25 10/09/25 History resmetirom 100 mg tablet 100 mg PO DAILY 10/10/25 10/09/25 History (Rezdiffra) Allergy/AdvReac Type Severity Reaction Status Date / Time cranberry Allergy Hives Verified 10/10/25 11:33 prednisone AdvReac Intermediate Hypertensiv Verified 10/10/25 11:33 e Family History Mother No problems noted. Other Adopted Surgical History (Updated 10/10/25 @ 13:04 by Roula Moss) History of cholecystectomy History of hip surgery History of colonoscopy History of vaginal hysterectomy History of foot surgery History of laparoscopic cholecystectomy Social History Smoking Status: Former smoker quit date: 10/27/91 pack-years: 15 alcohol intake: never substance use type: does not use what type of physical activity do you participate in: none seatbelt use: always do you feel safe at home: Yes EXAM Physical Exam Const Vital Signs: 10/10/25 11:33 10/10/25 12:35 Temperature 96.8 F L 98.1 F Temperature Source Temporal Oral Pulse Rate 70 60 Respiratory Rate 18 16 Blood Pressure 140/89 H 120/71 Blood Pressure Mean 106 87 Pulse Ox 97 95 Oxygen Delivery Method Room Air Room Air MDM MDM MDM Narrative Medical decision making narrative: 65-year-old female with past medical history of fatty liver, DM 2, HLD, HTN presents for evaluation of right flank pain. Triage note states left flank pain but this is incorrect. Patient states symptoms have been ongoing for 1 month. She saw her PCP who felt that this was muscular in nature in which she was given muscle relaxers. Patient states her symptoms have not improved. She endorses some foul-smelling urine but denies any dysuria. On presentation, patient no acute distress. See physical exam findings. Differential diagnosis includes but is not limited to UTI, pyelonephritis, urolithiasis, myofascial spasm. Patient offered pain medicine but declined. Laboratory workup ordered including urine and CT abdomen pelvis without contrast. CBC without leukocytosis or anemia. CMP unremarkable except for baseline mild transaminitis. Lipase unremarkable. UA positive for protein, blood, leuk esterase. Negative for nitrites and bacteria. She does have 10-25 squamous epithelial cells. Not the cleanest specimen however questionable for UTI. Given she is having symptoms we will treat. Urine culture sent. Patient has no previous microbiology cultures on chart review therefore we will give Keflex. CT abdomen pelvis shows a 5 mm calculus in the midportion left ureter causing a mild degree of left hydronephrosis. Mild splenomegaly. Fatty infiltration of the liver. Patient's pain is on the right and not the left despite CT abdomen pelvis findings and triage note. I did confirm this with the patient as well as it agrees with my physical exam. However given her questionable UTI with this 5 mm calculus in the left ureter will page out to urology. I do not have urology on-call however will try to see if Dr. Maya will take my call during business hours. I did not receive a callback therefore will reach out to [facility] urology. I spoke with the transfer line. Dr. Maya did contact me about the patient. He reviewed the CT abdomen finding results. He does admit that there is a calculus in this area but he does not believe it is in the ureter. He does not personally see any hydronephrosis. He does not believe patient has urolithiasis. Recommendation is to treat UTI and follow-up with her primary care physician. I did explain this to the patient and she confirmed understand the plan. No clear etiology for her right flank pain at this time. May be musculoskeletal in nature. She was requesting a muscle relaxer. Prescription written. Motrin as needed for pain. She confirmed understand the plan. Patient stable to discharge home. Return precautions explained. Impression: 1. Right flank pain 2. UTI Lab Data Labs: Laboratory Results - last 24 hr 10/10/25 10/10/25 12:20 13:10 WBC 7.4 RBC 4.58 Hgb 13.7 Hct 41.2 MCV 90.0 MCH 29.9 MCHC 33.3 RDW Std Deviation 43.1 RDW Coeff of Ara 13.0 Plt Count 146 L MPV 13.0 H Immature Gran % (Auto) 0.300 Neut % (Auto) 65.5 Lymph % (Auto) 22.8 Dade % (Auto) 7.9 Eos % (Auto) 2.8 Baso % (Auto) 0.7 Absolute Neuts (auto) 4.8 Absolute Lymphs (auto) 1.68 Nucleated RBC % 0 Sodium 141 Potassium 3.6 Chloride 104 Carbon Dioxide 25.8 Anion Gap 11 BUN 9 Creatinine 0.61 L Estim Creat Clear Calc 84.52 Est GFR (MDRD) Non-Af 99 BUN/Creatinine Ratio 15.2 Glucose 99 Calcium 9.5 Total Bilirubin 0.55 AST 56 H ALT 94 H Alkaline Phosphatase 82 Total Protein 6.9 Albumin 4.2 Globulin 2.7 Albumin/Globulin Ratio 1.5 Lipase 35 Urine Color Yellow Urine Clarity Sl. Cloudy Urine pH 5.0 Ur Specific [place] 1.025 Urine Protein 30 H Urine Glucose (UA) Normal Urine Ketones 15 H Urine Occult Blood 10 H Urine Nitrite Negative Urine Bilirubin Negative Urine Urobilinogen Normal Ur Leukocyte Esterase 500 H Urine RBC 0 SEEN Urine WBC 10-25 SEEN Ur Squamous Epith Cells 10-25 SEEN Urine Bacteria RARE Urine Mucus 1+ Radiography Diagnostic Testing: Clinical Impression(s) from Imaging Studies Abdomen/Pelvis CT 12/15/25 12:08 IMPRESSION: 5 mm calculus in the midportion of the left ureter causing a minimal degree of left hydronephrosis. Mild splenomegaly. Fatty infiltration of the liver. Reading Location: [facility] Discharge Plan Triage Chief Complaint: Flank Pain ED Provider: Severo Aragon Dx/Rx/DC Orders Prescriptions: No Action lisinopril 10 mg tablet 10 mg PO DAILY cetirizine 10 mg tablet 10 mg PO DAILY PRN (Reason: Allergy Symptoms) coenzyme Q10 [CoQ-10] 100 mg capsule 100 mg PO DAILY Adult 50 Plus Probiotic 4 billion cell capsule 4,000 mmu cells PO DAILY Rx Instructions: administer with a meal cholecalciferol (vitamin D3) 125 mcg (5,000 unit) tablet 125 mcg PO DAILY cholestyramine (with sugar) 4 gram powder in packet 1 ea PO DAILY PRN (Reason: .) Patient Comments: TAKE 1 PACKET DAILY BY MOUTH metformin 500 mg tablet 500 mg PO BID 90 Days Qty: 180 1RF zolpidem 10 mg tablet 10 mg PO QHS escitalopram oxalate 10 mg tablet 10 mg PO DAILY ropinirole 1 mg tablet 1 mg PO QHS Qty: 30 3RF Rezdiffra 100 mg tablet 100 mg PO DAILY atenolol 50 mg tablet 50 mg PO BID oxycodone 5 mg tablet 5 mg PO Q6H PRN PRN (Reason: pain) Primary Care Provider: Erin Craven Referrals: Erin Craven DO [Primary Care Provider, Internal Medicine] Print Language: [place]
[2025-10-10 12:31] LABS: Hematocrit 41.2 % (37-47); Hemoglobin 13.7 g/dL (12.0-15.0); Immature Granulocytes Count 0.020 X10^3/uL (0.0-0.0); Mean Corp Hgb Conc 33.3 g/dL (32-36); Mean Corpuscular Volume 90.0 fL (81-99); Mean Platelet Vol. 13.0 fl (6.2-12.0); NRBC Flagged by Analyzer 0 % (0-5); Platelet Count 146 K/mm3 (150-450); RBC Distribution Width CV 13.0 % (11.6-14.6); RBC Distribution Width SD 43.1 fl (35.1-43.9); Red Blood Count 4.58 M/mm3 (4.2-5.4); White Blood Count 7.4 K/mm3 (4.4-11.0)
[2025-10-10 12:35] VITALS: BP 120/71; PULSE 60; RESP 16; TEMP 36.7; O2SAT 95
[2025-10-10 12:56] LABS: AST(SGOT) 56 U/L (<=31); Alanine Aminotransfer ALT/SGPT 94 U/L (<=34); Albumin, Serum 4.2 g/dL (3.4-4.8); Alkaline Phosphatase 82 U/L (35-104); Anion Gap 11 (5-15); BUN 9 mg/dL (4-19); BUN/Creat Ratio 15.2 RATIO (10-20); Calcium,Total 9.5 mg/dL (7.6-11.0); Carbon Dioxide 25.8 mmol/L (21.0-32.0); Chloride 104 mmol/L (98-108); Estimated Creatinine Clearance 84.52 ml/min (50-250); Globulin 2.7 g/dL (2.2-4.2); Glucose 99 mg/dL (70-99); Lipase 35 U/L (13-75); Potassium 3.6 mmol/L (3.3-5.1)
[2025-10-10 13:23] LABS: Red Blood Cells-Urine 0 SEEN /hpf (0-5)
[2025-10-10 13:24] LABS: Color, Urine Yellow (Yellow); Glucose, Dipstick Normal (Normal); Ketone-Dipstick 15 mg/dl (Negative); Leukocyte Esterase-Dipstick 500 /ul (Negative); Nitrite-Dipstick Negative (Negative); Occult Blood-Urine 10 /ul (Negative); Protein-Dipstick 30 mg/dl (Negative); Specific Gravity, Urine 1.025 (1.002-1.030); Urine Bilirubin Dipstick Negative (Negative)
[2025-10-10 13:34] LABS: Mucous, Urine 1+ /hpf (<or=2+); Squamous Epithelial Cells - UA 10-25 SEEN /hpf (5-10)
[2025-10-10 16:00] VITALS: BP 155/91; PULSE 66; RESP 18; TEMP 36.6; O2SAT 97
[2025-10-10 16:03] VITALS: BP 155/91; PULSE 66; RESP 18; TEMP 36.6; O2SAT 97
== END 2025-10-10 16:09 | disposition home or self-care (01) ==
PROVIDERS: Emergency Provider Surgery; PCP Internal Medicine; Visit Provider Surgery
DX: R10.A1 Flank pain, right side (principal); E11.9 Type 2 diabetes mellitus without complications; I10 Essential (primary) hypertension; E78.5 Hyperlipidemia, unspecified; Z87.891 Personal history of nicotine dependence; N39.0 Urinary tract infection, site not specified; Z79.899 Other long term (current) drug therapy; Z79.84 Long term (current) use of oral hypoglycemic drugs; F41.8 Other specified anxiety disorders; Z90.49 Acquired absence of other specified parts of digestive tract; Z90.710 Acquired absence of both cervix and uterus
CPT/HCPCS: 74176; 80053; 81001; 83690; 85025; 87086; 87088; 99284